=== PATIENT | female | born 1985 | race Caucasian/White ===

== ENCOUNTER 2017-01-06 01:38 | Emergency (ER) | payer MEDICAID ==
[~2017-01-06] VITALS: Ht 154.9 cm; Wt 65.5 kg
[2017-01-06 01:38] VITALS: Ht 154.9 cm; Wt 65.5 kg
[~2017-01-06 01:38] MED LIST: ALPR0.5T8 PO; BUSP5TAB3 PO; HYOS0.3730 PO; PANT40TA27 PO; VENL75CA60 PO
--- OUTSIDE RECORDS SUMMARY | 2017-01-06 01:42 | XMS REPORT | Continuity of Care Document ---
Author Author [facility] Organization [facility] Address Unknown Phone Unavailable Support Name Relationship Address Phone VICTORIANO STANLEY M.D. Caregiver [employer] [address] [place] [id number] [place] FAULKNER Next Of Kin [address] [place] [address] [employer] Insurance Providers Payer Name Policy Number Subscriber Name Relationship Self Pay Insurance Wong Garcia 01 Self / Same As Patient Chief Complaint and Reason for Visit Chief Complaint Rib Pain Reason for Visit Rib injury Problems Medical Problems Problem Onset Date Status Acute right ear pain Unknown Active Eustachean tube dysfunction Unknown Active Ear ache Unknown Active Acute on chronic headache Unknown Active Viral illness Unknown Active Headache Unknown Active Malignant hypertension Unknown Active multidrug abuse Unknown Active Contusion Unknown Active Contusion multiple sites Unknown Active sprained elbow Unknown Active Abscess Unknown Active Insect bite Unknown Active Ovarian cyst Unknown Active Bacterial vaginosis Unknown Active Bacterial vaginosis Unknown Active Ovarian cyst Unknown Active Throat pain Unknown Active Concussion Unknown Active Mid-back pain, acute Unknown Active Hx of fall Unknown Active Bursitis of elbow Unknown Active Bursitis of elbow Unknown Active Olecranon bursitis of right elbow Unknown Active Olecranon bursitis of right elbow Unknown Active Olecranon bursitis of right elbow Unknown Active Olecranon bursitis of right elbow Unknown Active Torticollis, acute Unknown Active Cervicalgia Unknown Active Abscess of forearm, left Unknown Active Abscess of forearm, left Unknown Active Abscess of right forearm Unknown Active Abscess of right forearm Unknown Active Rib injury Unknown Active Rib injury Unknown Active Medications Medication Dose Route Sig Days/Qty Instructions Order Date Discontinued Date Status Hydrocodone-Acetaminophen 1 Tab PO Every 6 hours as needed 10 Qty 07/0107/01/09 Discontinued Acetaminophen/Hydrocodone 5 1 Ea PO 09/25/10 01/17/11 Discontinued Oxycodone/Acetaminophen 1 Tab PO EVERY 6 HOURS PRN 10 Qty For pain 05/14/ 11 05/16/11 Discontinued Oxycodone/Acetaminophen 1 Tab PO EVERY 6 HOURS PRN 10 Qty 05/08/1111/15 Discontinued Cyclobenzaprine Hcl 10 Mg PO Three times a day as needed 15 Qty 03/25/12 Discontinued Cyclobenzaprine Hcl 10 Mg PO Three times a day as needed 15 Qty 07/15/12 Discontinued Pregabalin 75 Mg PO TWICE A DAY 06/05/14 Active Ibuprofen 800 Mg PO Every 4 hours as needed 06/05/14 Active [Flexeril 10mg tab] 1 Tab PO THREE TIMES A DAY PRN SPASM 15 Qty 07/03/14 Discontinued Social History Social History Problem Response Recorded Date/Time Hx Alcohol Use No 12/22/2007 4:43pm Hx Substance Use No 09/30/2007 3:35pm Smoking Status Heavy Tobacco Smoker 07/28/2014 7:23pm Query Response Start Date Stop Date Smoking Status Heavy Tobacco Smoker Hospital Discharge Instructions No hospital discharge instructions. Plan of Care Discharge Date 07/28/14 8:00pm Disposition 01 HOME, SELF-CARE Condition at Discharge Stable Instructions/Education Provided Contusion (ED) Prescriptions See Medications Section Referrals EMETERIO LEONG M.D. Functional Status No functional status results. Allergies, Adverse Reactions, Alerts Allergen Type Severity Reaction Status Last Updated Codeine Adverse Reaction Unknown GI UPSET Active 06/05/14 Morphine Adverse Reaction Unknown Nausea/Vomiting Active 06/05/14 Quinolones Allergy Unknown SWELLING IN HANDS Active 06/05/14 Tramadol Adverse Reaction Unknown SEIZURE Active 06/05/14 Immunizations No immunization records. Vital Signs Acute Vital Signs Vital Response Date/Time Blood Pressure 111/75 mm Hg Blood Pressure Mean 87 mm Hg Temperature (Fahrenheit) 97.9 degrees F (96.0 - 99.9) Temperature (Calculated Celsius) 36.96069 degrees C Temperature Source Oral Pulse Pulse Rate: ED 113 bpm Respiratory Rate 18 breaths per minute (10 - 20) Height (Feet) 5 ft Height (Inches) 1 in. Weight (Pounds) 130 lbs Results Test Source Date Result Interp. Ref. Range Comments Acetaminophen Level September 29, 2013 1:25pm < 0.1 ug/mL Therapeutic Levels in serum/plasma 10-30 ug/mlToxic Levels: 4 hrs post ingestion >150 ug/ml 8 hrs post ingestion >75 ug/ml 12 hrs post ingestion >40 ug/ml Activated Partial Thromboplast Time May 16, 2011 9:25am 27.6 SECONDS N 23.0-32.0 Alanine Aminotransferase (ALT/SGPT) March 15, 2014 12:40pm 12 U/L N 5-40 Albumin March 15, 2014 12:40pm 4.0 gm/dL N 3.2-5.0 Albumin/Globulin Ratio March 15, 2014 12:40pm 1.3 L 1.4-2.4 Alkaline Phosphatase March 15, 2014 12:40pm 53 U/L N 35-125 Amylase Level April 06, 2010 11:30pm 86 U/L N 16-108 ROOM/COMMENTS 03 Anion Gap March 15, 2014 12:40pm 10.8 N 6-13 Anti-Nuclear Antibody Titer December 19, 2008 2:36pm See separate report Anti-Streptolysin O Antibody Screen December 19, 2008 2:36pm See separate report IU/ml NEG Arterial Blood HCO3 May 18, 2010 12:04am 24.0 mEq/L N 21-27 ABG' S DRAWN ON ROOM AIR. Arterial Blood Total CO2 May 18, 2010 12:04am 25.0 mM/L N 21-27 ROOM/COMMENTS 02 Arterial Blood pH May 18, 2010 12:04am 7.47 H 7.35-7.45 ROOM/ COMMENTS 02 Aspartate Amino Transf (AST/SGOT) March 15, 2014 12:40pm 18 U/L N 5-40 BUN/Creatinine Ratio March 15, 2014 12:40pm 13.9 Basophils # (Auto) May 24, 2014 8:53am 0.0 K/uL N 0-0.2 Basophils (%) (Auto) May 24, 2014 8:53am 0.3 % N 0-1 Bedside Blood Urea Nitrogen April 06, 2010 11:17pm 14 mg/dL N 8-25 Bedside Calcium August 15, 2007 3:25am 5.0 mg/dL N 4.5-5.3 Bedside Chloride April 06, 2010 11:17pm 103 mEq/L N 98-116 Bedside Glucose April 06, 2010 11:17pm 121 mg/dL H 65-115 Bedside Hematocrit August 15, 2007 3:25am 33.0 % L 38.0-47.0 Bedside Hemoglobin August 15, 2007 3:25am 11.0 g/dL L 12.0-16.0 Bedside Potassium April 06, 2010 11:17pm 3.1 mEq/L L 3.5-5.1 Bedside Sodium April 06, 2010 11:17pm 139 mEq/L N 133-145 Benzodiazepines Screen February 14, 2011 11:33am Negative NEGATIVE ROOM/ COMMENTS 05 Blood Gas Base Excess May 18, 2010 12:04am 0.8 mEq/L ROOM/ COMMENTS 02 Blood Gas PCO2 May 18, 2010 12:04am 33 mmHg L 34-46 ROOM/ COMMENTS 02 Blood Gas PO2 May 18, 2010 12:04am 96 mmHg N 89-100 ROOM/ COMMENTS 02 Blood Urea Nitrogen March 15, 2014 12:40pm 10 mg/dL N 8-25 C-Reactive Protein May 24, 2014 8:53am 7.8 mg/L H <6.0 CSF Appearance July 23, 2011 12:00am Clear COMMENT: 02 CSF Color July 23, 2011 12:00am Colorless COMMENT: 02 CSF Differential Comment July 23, 2011 12:00am Not Performed CSF Glucose July 23, 2011 12:00am 56 mg/dL N 40-70 COMMENT: 02 CSF Lymphocytes July 23, 2011 12:00am Not Performed 40-80 CSF Monocytes July 23, 2011 12:00am Not Performed 15-45 CSF Neutrophils July 23, 2011 12:00am Not Performed 0-6 CSF RBC July 23, 2011 12:00am 78 /uL H 0-1 COMMENT: 02 CSF Total Protein July 23, 2011 12:00am 25 mg/dL L 30-45 COMMENT: 02 CSF WBC July 23, 2011 12:00am 0 /uL N 0-5 COMMENT: 02 Calcium Level March 15, 2014 12:40pm 9.2 mg/dL N 8.2-10.6 Carbon Dioxide Level March 15, 2014 12:40pm 26 mEq/L N 22-34 Chloride Level March 15, 2014 12:40pm 103 mEq/L N 98-116 Cocaine Screen February 14, 2011 11:33am Negative NEGATIVE ROOM/COMMENTS 05 Creatine Kinase MB April 06, 2010 11:30pm 4.9 ng/mL N 0.0-6.0 ROOM/ COMMENTS 03 Creatine Kinase MB Relative Index April 06, 2010 11:30pm Not Performed 0.0-2.2 Creatinine March 15, 2014 12:40pm 0.72 mg/dL L 0.9-1.6 Drug Screen (T) February 14, 2011 11:33am Positive NEGATIVE ROOM/ COMMENTS 05 Eosinophils # (Auto) May 24, 2014 8:53am 0.2 K/uL N 0-0.8 Eosinophils (%) (Auto) May 24, 2014 8:53am 2.1 % N 0-7.0 Erythrocyte Sedimentation Rate May 24, 2014 8:53am 6 mm/hr N 0-20 Ethyl Alcohol Level September 29, 2013 1:25pm < 5 mg/dl 0-10 A level below 10 mg/dl should be considered negative. Globulin March 15, 2014 12:40pm 3.2 gm/dL H 2.0-3.0 Hematocrit May 24, 2014 8:53am 41.3 % N 38.0-47.0 Hemoglobin May 24, 2014 8:53am 13.6 g/dL N 12.0-16.0 Human Chorionic Gonadotropin, Qual March 15, 2014 1:15pm Negative NEGATIVE Immature Blood Cells October 07, 2012 4:29pm 0.1 K/uL N 0-0.4 COMMENT: 10 Lipase March 15, 2014 12:40pm 29 U/L N 8-57 Lymphocytes # (Auto) May 24, 2014 8:53am 2.8 K/uL N 0.9-5.2 Lymphocytes (%) (Auto) May 24, 2014 8:53am 32.4 % N 16.0-44.0 Mean Corpuscular Hemoglobin May 24, 2014 8:53am 29.2 pg N 26.0- 33.0 Mean Corpuscular Hemoglobin Concent May 24, 2014 8:53am 32.9 g/dL N 31.0-36.0 Mean Corpuscular Volume May 24, 2014 8:53am 88.6 fL N 82.0-100.0 Mean Platelet Volume May 24, 2014 8:53am 9.8 fL N 7.0-11.0 Monocytes # (Auto) May 24, 2014 8:53am 0.8 K/uL N 0.16-1.0 Monocytes (%) (Auto) May 24, 2014 8:53am 9.3 % H 2.0-9.0 Monoscreen September 29, 2013 1:25pm Negative NEGATIVE Neisseria gonorrhoeae DNA (PCR) March 15, 2014 1:15pm Not detected NOT DETECTE Neutrophils # (Auto) May 24, 2014 8:53am 4.8 K/uL N 1.9-8.0 Neutrophils (%) (Auto) May 24, 2014 8:53am 55.7 % N 42.0-75.0 Nucleated Red Blood Cells # May 24, 2014 8:53am 0.00 K/uL N 0.0- 0.012 Nucleated Red Blood Cells % May 24, 2014 8:53am 0.0 /100WBC N 0-0 Platelet Count May 24, 2014 8:53am 183 K/uL N 130-400 Potassium Level March 15, 2014 12:40pm 4.8 mEq/L N 3.5-5.1 Prothromb Time International Ratio May 16, 2011 9:25am 0.98 L 2.0- 3.0 Prothrombin Time May 16, 2011 9:25am 10.3 SECONDS N 9.0-11.0 RDW Standard Deviation May 24, 2014 8:53am 39.1 fL N 36.4-46.3 Random Glucose March 15, 2014 12:40pm 89 mg/dL N 65-115 Red Blood Count May 24, 2014 8:53am 4.66 M/uL N 4.20-5.40 Red Cell Distribution Width May 24, 2014 8:53am 12.1 % N 11.5- 14.5 Rheumatoid Factor Screen December 19, 2008 2:36pm Negative NEGATIVE Salicylates Level September 29, 2013 1:25pm < 0.4 mg/dl NORMAL LEVELS =< 4 mg/dLTHERAPEUTIC LEVEL=< 20 mg/dL TOXIC LEVEL=> 30 mg/dL LETHAL LEVEL=> 60 mg/dL Sodium Level March 15, 2014 12:40pm 135 mEq/L N 133-145 Thyroid Stimulating Hormone (TSH) December 19, 2008 2:36pm 0.33 uIU/ml L 0.34-5.60 Total Bilirubin March 15, 2014 12:40pm 0.7 mg/dL N 0.1-1.3 Total Creatine Kinase April 06, 2010 11:30pm 289 U/L H 10-180 ROOM/ COMMENTS 03 Total Protein March 15, 2014 12:40pm 7.2 gm/dL N 6.0-8.4 Troponin I July 23, 2011 3:55pm 0.01 ng/mL N 0.0-0.03 <0.03 ng/mL=NORMAL0.04 - 0.50 ng/mL=CARDIAC CONDITION >0.50 ng/mL=SUGGESTS AMI Ur Tricyclic Antidepressants Screen September 29, 2013 1:20pm Negative NEGATIVE Uric Acid January 19, 2007 1:17pm 3.2 mg/dL N 2.5-7.0 Urine Amorphous Sediment December 17, 2010 11:45pm Trace ROOM/ COMMENTS 10Lab to draw N If applicable:TELEPHONE/VERBAL order by (other than ) Latoya SOURCE: URINE, CLEAN CATCH Urine Amphetamines Screen September 29, 2013 1:20pm Positive NEGATIVE Urine Appearance March 15, 2014 1:15pm Clear SOURCE: URINE, CLEAN CATCH Urine Bacteria April 07, 2012 2:10pm Trace /hpf H NONE COMMENT: 01SOURCE: URINE, CLEAN CATCH Urine Barbiturates February 14, 2011 11:33am Negative NEGATIVE ROOM/ COMMENTS 05 Urine Barbiturates Screen September 29, 2013 1:20pm Negative NEGATIVE Urine Benzodiazepines Screen September 29, 2013 1:20pm Positive NEGATIVE Urine Bilirubin March 15, 2014 1:15pm Negative NEGATIVE SOURCE: URINE , CLEAN CATCH Urine Cannabinoids February 14, 2011 11:33am Negative NEGATIVE ROOM/ COMMENTS 05 Urine Casts December 17, 2010 11:45pm None /lpf NONE ROOM/COMMENTS 10Lab to draw N If applicable:TELEPHONE/VERBAL order by (other than ) Latoya SOURCE: URINE, CLEAN CATCH Urine Cocaine Screen September 29, 2013 1:20pm Negative NEGATIVE Urine Color March 15, 2014 1:15pm Yellow SOURCE: URINE, CLEAN CATCH Urine Crystals December 17, 2010 11:45pm None /hpf NONE ROOM/COMMENTS 10Lab to draw N If applicable:TELEPHONE/VERBAL order by (other than ) Latoya SOURCE: URINE, CLEAN CATCH Urine Epithelial Cells April 07, 2012 2:10pm Many /lpf COMMENT: 01SOURCE: URINE, CLEAN CATCH Urine Glucose (UA) March 15, 2014 1:15pm Negative NEGATIVE SOURCE: URINE, CLEAN CATCH Urine Human Chorionic Gonadotropin September 29, 2013 1:20pm Negative NEGATIVE Urine Ketones March 15, 2014 1:15pm Negative NEGATIVE SOURCE: URINE, CLEAN CATCH Urine Leukocyte Esterase March 15, 2014 1:15pm Negative NEGATIVE SOURCE: URINE, CLEAN CATCH Urine Methamphetamines Screen September 29, 2013 1:20pm Positive NEGATIVE Urine Mucus December 17, 2010 11:45pm None /lpf NONE ROOM/COMMENTS 10Lab to draw N If applicable:TELEPHONE/VERBAL order by (other than ) Latoya SOURCE: URINE, CLEAN CATCH Urine Nitrate March 15, 2014 1:15pm Negative NEGATIVE SOURCE: URINE, CLEAN CATCH Urine Occult Blood March 15, 2014 1:15pm Negative NEGATIVE SOURCE: URINE, CLEAN CATCH Urine Opiates Screen September 29, 2013 1:20pm Positive NEGATIVE Urine Other December 17, 2010 11:45pm N ROOM/COMMENTS 10Lab to draw N If applicable:TELEPHONE/VERBAL order by (other than ) Latoya SOURCE: URINE, CLEAN CATCH Urine Phencyclidine Screen September 29, 2013 1:20pm Negative NEGATIVE Urine Propoxyphene Screen September 29, 2013 1:20pm Positive NEGATIVE Urine Protein March 15, 2014 1:15pm Negative NEGATIVE SOURCE: URINE, CLEAN CATCH Urine RBC April 07, 2012 2:10pm None /hpf NONE COMMENT: 01SOURCE: URINE, CLEAN CATCH Urine Specific Bude March 15, 2014 1:15pm 1.015 1.005-1.030 SOURCE : URINE, CLEAN CATCH Urine Urobilinogen March 15, 2014 1:15pm 0.2 E.U./dL 0.2-1.0 SOURCE: URINE, CLEAN CATCH Urine WBC April 07, 2012 2:10pm 0-1 /hpf NONE COMMENT: 01SOURCE: URINE, CLEAN CATCH Urine WBC Clumps December 17, 2010 11:45pm None /hpf NONE ROOM/COMMENTS 10Lab to draw N If applicable:TELEPHONE/VERBAL order by (other than ) Latoya SOURCE: URINE, CLEAN CATCH Urine pH March 15, 2014 1:15pm 6.5 4.5-8.0 SOURCE: URINE, CLEAN CATCH White Blood Count May 24, 2014 8:53am 8.6 K/uL N 5.0-10.0 Whole Blood Anion Gap August 15, 2007 3:25am 13 N 10-20 D-Dimer Quantitative (PE/DVT) June 07, 2007 7:15pm 0.40 mg/L N 0.40- 3.00 If the result is greater than 1.5 mg/L then the potentialfor PE / DVT exists. Follow up testing is indicated if suspected clinically. Results will be elevated greater than 3.0 mg/L in DIC. Bedside Troponin I April 06, 2010 11:13pm 0.00 ng/mL N 0.0-0.03 < 0.03 ng/mL=NORMAL0.04 - 0.50 ng/mL=CARDIAC CONDITION >0.50 ng/mL=SUGGESTS AMI Chlamydia trachomatis DNA (PCR) March 15, 2014 1:15pm Not detected NOT DETECTE Urine Methadone Screen September 29, 2013 1:20pm Negative NEGATIVE Bedside Creatinine April 06, 2010 11:17pm 1.1 mg/dL N 0.9-1.6 Glomerular Filtration Rate Calc March 15, 2014 12:40pm > 60.00 mL/min MULTIPLY RESULT BY 1.210 IF THE PATIENT IS -AMERICANUnits are mL/min/ 1.73 m2 > 60 Normal kidney function 30-59 Moderately decreased kidney function 15-29 Severely decreased kidney function <15 End-stage kidney failure Immature Granulocyte # (Auto) May 24, 2014 8:53am 0.02 K/uL N 0- 0.40 Immature Granulocyte % (Auto) May 24, 2014 8:53am 0.2 % N 0-0.5 Ur Tetrahydrocannabinol (THC) Scrn September 29, 2013 1:20pm Negative NEGATIVE Urine Acetaminophen Screen January 04, 2012 1:05pm Pos NEGATIVE COMMENT : 04 Gram Stain Cerebral Spinal Fluid July 23, 2011 12:00am Vaginitis Screen Culture Cervix March 15, 2014 1:15pm Yeast Species Group A Streptococcus Screen (DARÍO) Throat December 20, 2013 12:47pm Urine Culture Urine,Clean Catch December 05, 2007 9:30am Wound Culture Arm-Right July 18, 2014 8:15am Procedures Procedure Status Date Provider(s) THER/PROPH/DIAG INJ SC/IM completed 06/05/14 RAFA GARCIA M.D. THER/PROPH/DIAG INJ SC/IM completed 07/03/14 DUARTE SAINZ M.D. THER/PROPH/DIAG INJ SC/IM completed 07/03/14 DUARTE SAINZ M.D. DRAINAGE OF SKIN ABSCESS completed 07/18/14 DUARTE SAINZ M.D. Incision and drainage of soft tissue (procedure) completed 07/18/14 DUARTE SAINZ M.D. THER/PROPH/DIAG INJ SC/IM completed 07/26/14 DUARTE SAINZ M.D. THER/PROPH/DIAG INJ SC/IM completed 07/26/14 DUARTE SAINZ M.D. THER/PROPH/DIAG INJ SC/IM completed 08/02/13 LILA URIBE M.D. THER/PROPH/DIAG INJ SC/IM completed 08/02/13 LILA URIBE M.D. DRAINAGE OF SKIN ABSCESS completed 11/01/13 YABUT,GUANACO Treviño M.D. Incision and drainage of soft tissue (procedure) completed 11/01/13 YABUT, GUANACO Treviño M.D. THER/PROPH/DIAG INJ SC/IM completed 11/30/13 VICTORIANO STANLEY M.D. THER/PROPH/DIAG INJ SC/IM completed 11/30/13 VICTORIANO STANLEY M.D. THER/PROPH/DIAG INJ SC/IM completed 11/30/13 VICTORIANO STANLEY M.D. THER/PROPH/DIAG INJ SC/IM completed 12/01/13 YABUT,GUANACO Treviño M.D. THER/PROPH/DIAG INJ SC/IM completed 12/01/13 YABUT,GUANACO Treviño M.D. THER/PROPH/DIAG INJ SC/IM completed 12/01/13 YABUT,GUANACO Treviño M.D. THER/PROPH/DIAG INJ IV PUSH completed 03/15/14 DUARTE SAINZ M.D. TX/PRO/DX INJ NEW DRUG ADDON completed 03/15/14 DUARTE SAINZ M.D. TX/PRO/DX INJ NEW DRUG ADDON completed 03/15/14 DUARTE SAINZ M.D. Gynecologic examination (procedure) completed 03/15/14 DUARTE SAINZ M.D. THER/PROPH/DIAG INJ SC/IM completed 03/27/14 VICTORIANO STANLEY M.D. THER/PROPH/DIAG INJ SC/IM completed 03/27/14 VICTORIANO STANLEY M.D. THER/PROPH/DIAG INJ SC/IM completed 03/27/14 VICTORIANO STANLEY M.D. THER/PROPH/DIAG INJ SC/IM completed 04/07/14 VICTORIANO STANLEY M.D. THER/PROPH/DIAG INJ SC/IM completed 04/07/14 VICTORIANO STANLEY M.D. THER/PROPH/DIAG INJ SC/IM completed 05/08/14 VICTORIANO STANLEY M.D. THER/PROPH/DIAG INJ SC/IM completed 05/08/14 VICTORIANO STANLEY M.D. THER/PROPH/DIAG INJ SC/IM completed 05/08/14 VICTORIANO STANLEY M.D. THER/PROPH/DIAG INJ SC/IM completed 05/11/14 SHILA TIDWELL D.O. THER/PROPH/DIAG INJ SC/IM completed 05/16/14 RAFA GARCIA M.D. Encounters Encounter Location Date/Time Departed Emergency Room [facility] 07/28/14 7:19pm Registered Emergency Room [facility] 07/28/14 4:19pm Departed Emergency Room [facility] 07/26/14 3:57pm Departed Emergency Room [facility] 07/18/14 7:47am Departed Emergency Room [facility] 07/03/14 8:25am Departed Emergency Room [facility] 06/05/14 12:06pm Departed Emergency Room [facility] 05/16/14 11:13am Departed Emergency Room [facility] 05/11/14 8:24am Departed Emergency Room [facility] 05/08/14 7:22am Departed Emergency Room [facility] 05/04/14 11:11am Departed Emergency Room [facility] 04/27/14 11:11am Departed Emergency Room [facility] 04/23/14 9:41am Departed Emergency Room [facility] 04/07/14 12:34pm Departed Emergency Room [facility] 03/27/14 10:38am Departed Emergency Room [facility] 03/15/14 12:11pm Departed Emergency Room [facility] 03/02/14 10:49am Departed Emergency Room [facility] 01/16/14 8:33am Departed Emergency Room [facility] 12/20/13 12:20pm Departed Emergency Room [facility] 12/08/13 12:38pm Departed Emergency Room [facility] 12/01/13 5:06pm Departed Emergency Room [facility] 11/30/13 12:40pm Departed Emergency Room [facility] 11/01/13 3:13pm Departed Emergency Room [facility] 10/30/13 3:55pm Departed Emergency Room [facility] 10/08/13 9:00pm Departed Emergency Room [facility] 09/29/13 1:05pm Departed Emergency Room [facility] 09/27/13 4:56pm Departed Emergency Room [facility] 09/12/13 8:17am Departed Emergency Room [facility] 08/24/13 10:10am Departed Emergency Room [facility] 08/04/13 5:24pm Departed Emergency Room [facility] 08/02/13 1:19pm Departed Emergency Room [facility] 08/01/13 12:56pm Recent Diagnosis
--- OUTSIDE RECORDS SUMMARY | 2017-01-06 01:42 | XMS REPORT | Continuity of Care Document ---
Author Author [facility] Organization [facility] Address Unknown Phone Unavailable Support Name Relationship Address Phone KORIN GOYAL M.D. Caregiver [address] [place] [id number] [address] FA[place]KNER Next Of Kin [address] [place] [address] [employer] Insurance Providers Payer Name Policy Number Subscriber Name Relationship [facility] [id number] Aleksandar Garcia 02 Chief Complaint and Reason for Visit Chief Complaint Hand Injury Reason for Visit Contusion of left hand Problems Medical Problems Problem Onset Date Status [...] injury Unknown Active Rib injury Unknown Active Contusion of rib on right side Unknown Active Contusion of rib on right side Unknown Active Otitis media Unknown Active Bilateral sacroiliitis Unknown Active Bilateral sacroiliitis Unknown Active Ear pain Unknown Active Headache Unknown Active Ear pain Unknown Active Low back pain Unknown Active Low back pain Unknown Active RUQ abdominal pain Unknown Active RUQ abdominal pain Unknown Active Left wrist sprain Unknown Active Left wrist sprain Unknown Active Encounter for removal of sutures Unknown Active Laceration of right lower leg Unknown Active Low back strain Unknown Active Axillary abscess Unknown Active Axillary abscess Unknown Active Concussion without loss of consciousness Unknown Active Cervical strain, acute Unknown Active Contusion of neck Unknown Active Headache Unknown Active Post concussion syndrome Unknown Active Headache Unknown Active Contusion of left hand Unknown Active Contusion of left hand Unknown Active Medications Medication Dose Route Sig Days/Qty Instructions Order Date Discontinued Date Status Hydrocodone-Acetaminophen 1 Tab PO Every 6 hours as needed 10 Qty 07/0107/01/09 Discontinued Acetaminophen/Hydrocodone 5 1 Ea PO 09/25/10 01/17/11 Discontinued Oxycodone/Acetaminophen 1 Tab PO EVERY 6 HOURS PRN 10 Qty For pain 01/20/11 Discontinued Oxycodone/Acetaminophen 1 Tab PO EVERY 6 HOURS PRN 10 Qty 05/08/1111/15 Discontinued Cyclobenzaprine Hcl 10 Mg PO Three times a day as needed 15 Qty 03/25/12 Discontinued Cyclobenzaprine Hcl 10 Mg PO Three times a day as needed 15 Qty 07/15/12 Discontinued [Flexeril 10mg tab] 1 Tab PO THREE TIMES A DAY PRN SPASM 15 Qty 07/03/14 Discontinued Rbfcvdhrzd-Rjwnzmvdgnlcj-Lyjny 1 Tab PO Every 6 hours as needed For MIGRAINE 20 Qty 01/13/15 Active Pregabalin 25 Mg PO TWICE A DAY 02/13/15 Active Acetaminophen/Hydrocodone Bitart 1-2 Tab PO Q4-6H PRN PAIN 14 Qty 02/13 Active Social History Social History Problem Response Recorded Date/Time Hx Alcohol Use No 12/22/2007 4:43pm Hx Substance Use No 09/30/2007 3:35pm Smoking Status Heavy Tobacco Smoker 02/13/2015 7:44am Query Response Start Date Stop Date Smoking Status Heavy Tobacco Smoker Hospital Discharge Instructions No hospital discharge instructions. Plan of Care Discharge Date 02/13/15 8:46am Disposition 01 HOME, SELF-CARE Condition at Discharge Stable Instructions/Education Provided Contusion (ED) Contusions in Adults (ED) Prescriptions See Medications Section Functional Status No functional status results. Allergies, Adverse Reactions, Alerts Allergen Type Severity Reaction Status Last Updated Codeine Adverse Reaction Unknown GI UPSET Active 01/13/15 Morphine Adverse Reaction Unknown Nausea/Vomiting Active 01/13/15 Tramadol Adverse Reaction Unknown SEIZURE Active 01/13/15 Quinolones Allergy Unknown SWELLING IN HANDS Active 01/13/15 Immunizations No immunization records. Vital Signs Acute Vital Signs Vital Response Date/Time Blood Pressure 169/108 mm Hg Blood Pressure Mean 128 mm Hg Temperature (Fahrenheit) 98.4 degrees F (96.0 - 99.9) Temperature (Calculated Celsius) 36.76716 degrees C Temperature Source Oral Pulse Pulse Rate: ED 94 bpm Respiratory Rate 18 breaths per minute (10 - 20) Height (Feet) 5 ft Height (Inches) 1 in. Weight (Pounds) 130 lbs Height 5 ft 1 in Weight 130 lb Body Mass Index 24.6 kg/m^2 Results Test Source Date Result Interp. Ref. Range Comments Acetaminophen Level September 29, 2013 1:25pm < 0.1 ug/mL Therapeutic Levels in serum/plasma 10-30 ug/mlToxic Levels: 4 hrs post ingestion >150 ug/ml 8 hrs post ingestion >75 ug/ml 12 hrs post ingestion >40 ug/ml Activated Partial Thromboplast Time May 16, 2011 9:25am 27.6 SECONDS N 23.0-32.0 Alanine Aminotransferase (ALT/SGPT) September 28, 2014 3:50pm 13 U/L N 5- 40 Albumin September 28, 2014 3:50pm 3.9 gm/dL N 3.2-5.0 Albumin/Globulin Ratio September 28, 2014 3:50pm 1.2 L 1.4-2.4 Alkaline Phosphatase September 28, 2014 3:50pm 57 U/L N 35-125 Amylase Level April 06, 2010 11:30pm 86 U/L N 16-108 ROOM/COMMENTS 03 Anion Gap September 28, 2014 3:50pm 10.1 N 6-13 Anti-Nuclear Antibody Titer December 19, [...] ROOM/ COMMENTS 02 Aspartate Amino Transf (AST/SGOT) September 28, 2014 3:50pm 17 U/L N 5-40 BUN/Creatinine Ratio September 28, 2014 3:50pm 17.0 Basophils # (Auto) September 28, 2014 12:00am 0.0 K/uL N 0-0.2 Basophils (%) (Auto) September 28, 2014 12:00am 0.4 % N 0-1 Bedside Blood Urea Nitrogen [...] 89-100 ROOM/ COMMENTS 02 Blood Urea Nitrogen September 28, 2014 3:50pm 15 mg/dL N 8-25 C-Reactive Protein May 24, [...] /uL N 0-5 COMMENT: 02 Calcium Level September 28, 2014 3:50pm 9.2 mg/dL N 8.2-10.6 Carbon Dioxide Level September 28, 2014 3:50pm 24 mEq/L N 22-34 Chloride Level September 28, 2014 3:50pm 106 mEq/L N 98-116 Cocaine Screen February 14, 2011 11:33am Negative NEGATIVE ROOM/COMMENTS 05 Creatine Kinase MB April 06, 2010 11:30pm 4.9 ng/mL N 0.0-6.0 ROOM/ COMMENTS 03 Creatine Kinase MB Relative Index April 06, 2010 11:30pm Not Performed 0.0-2.2 Creatinine September 28, 2014 3:50pm 0.88 mg/dL L 0.9-1.6 Drug Screen (T) February 14, 2011 11:33am Positive NEGATIVE ROOM/ COMMENTS 05 Eosinophils # (Auto) September 28, 2014 12:00am 0.2 K/uL N 0-0.8 Eosinophils (%) (Auto) September 28, 2014 12:00am 2.7 % N 0-7.0 Erythrocyte Sedimentation Rate May 24, 2014 8:53am 6 mm/hr N 0-20 Ethyl Alcohol Level September 29, 2013 1:25pm < 5 mg/dl 0-10 A level below 10 mg/dl should be considered negative. Globulin September 28, 2014 3:50pm 3.3 gm/dL H 2.0-3.0 Hematocrit September 28, 2014 12:00am 40.0 % N 38.0-47.0 Hemoglobin September 28, 2014 12:00am 13.6 g/dL N 12.0-16.0 Human Chorionic Gonadotropin, Qual March 15, 2014 1:15pm Negative NEGATIVE Immature Blood Cells October 07, 2012 4:29pm 0.1 K/uL N 0-0.4 COMMENT: 10 Lipase September 28, 2014 3:50pm 31 U/L N 8-57 Lymphocytes # (Auto) September 28, 2014 12:00am 2.4 K/uL N 0.9-5.2 Lymphocytes (%) (Auto) September 28, 2014 12:00am 34.7 % N 16.0-44.0 Mean Corpuscular Hemoglobin September 28, 2014 12:00am 29.5 pg N 26.0- 33.0 Mean Corpuscular Hemoglobin Concent September 28, 2014 12:00am 34.0 g/dL N 31.0-36.0 Mean Corpuscular Volume September 28, 2014 12:00am 86.8 fL N 82.0-100.0 Mean Platelet Volume September 28, 2014 12:00am 10.1 fL N 7.0-11.0 Monocytes # (Auto) September 28, 2014 12:00am 0.9 K/uL N 0.16-1.0 Monocytes (%) (Auto) September 28, 2014 12:00am 12.1 % H 2.0-9.0 Monoscreen September 29, 2013 1:25pm Negative NEGATIVE Neisseria gonorrhoeae DNA (PCR) March 15, 2014 1:15pm Not detected NOT DETECTE Neutrophils # (Auto) September 28, 2014 12:00am 3.5 K/uL N 1.9-8.0 Neutrophils (%) (Auto) September 28, 2014 12:00am 50.0 % N 42.0-75.0 Nucleated Red Blood Cells # September 28, 2014 12:00am 0.02 K/uL H 0.0- 0.012 Nucleated Red Blood Cells % September 28, 2014 12:00am 0.3 /100WBC H 0-0 Platelet Count September 28, 2014 12:00am 178 K/uL N 130-400 Potassium Level September 28, 2014 3:50pm 4.1 mEq/L N 3.5-5.1 Prothromb Time International Ratio May 16, 2011 9:25am 0.98 L 2.0- 3.0 Prothrombin Time May 16, 2011 9:25am 10.3 SECONDS N 9.0-11.0 RDW Standard Deviation September 28, 2014 12:00am 38.9 fL N 36.4-46.3 Random Glucose September 28, 2014 3:50pm 84 mg/dL N 65-115 Red Blood Count September 28, 2014 12:00am 4.61 M/uL N 4.20-5.40 Red Cell Distribution Width September 28, 2014 12:00am 12.2 % N 11.5-14.5 Rheumatoid Factor Screen December 19, 2008 2:36pm Negative NEGATIVE Salicylates Level September 29, 2013 1:25pm < 0.4 mg/dl NORMAL LEVELS =< 4 mg/dLTHERAPEUTIC LEVEL=< 20 mg/dL TOXIC LEVEL=> 30 mg/dL LETHAL LEVEL=> 60 mg/dL Sodium Level September 28, 2014 3:50pm 136 mEq/L N 133-145 Thyroid Stimulating Hormone (TSH) December 19, 2008 2:36pm 0.33 uIU/ml L 0.34-5.60 Total Bilirubin September 28, 2014 3:50pm 0.4 mg/dL N 0.1-1.3 Total Creatine Kinase April 06, 2010 11:30pm 289 U/L H 10-180 ROOM/ COMMENTS 03 Total Protein September 28, 2014 3:50pm 7.2 gm/dL N 6.0-8.4 Troponin I July [...] 29, 2013 1:20pm Positive NEGATIVE Urine Appearance September 28, 2014 12:00am Sl cloudy SOURCE: URINE, CLEAN CATCH Urine Bacteria September 28, 2014 12:00am 4+ /hpf H NONE THIS SPECIMEN MEETS MEDICAL STAFF CRITERIAFOR A URINE CULTURE. A CULTURE HAS BEEN SET. Urine Barbiturates February 14, 2011 11:33am Negative NEGATIVE ROOM/ COMMENTS 05 Urine Barbiturates Screen September 29, 2013 1:20pm Negative NEGATIVE Urine Benzodiazepines Screen September 29, 2013 1:20pm Positive NEGATIVE Urine Bilirubin September 28, 2014 12:00am Negative NEGATIVE SOURCE: URINE, CLEAN CATCH Urine Cannabinoids February 14, 2011 11:33am Negative NEGATIVE ROOM/ COMMENTS 05 Urine Casts December 17, 2010 11:45pm None /lpf NONE ROOM/COMMENTS 10Lab to draw N If applicable:TELEPHONE/VERBAL order by (other than KESHIA Klein SOURCE: URINE, CLEAN CATCH Urine Cocaine Screen September 29, 2013 1:20pm Negative NEGATIVE Urine Color September 28, 2014 12:00am Yellow SOURCE: URINE, CLEAN CATCH Urine Crystals December 17, 2010 11:45pm None /hpf NONE ROOM/COMMENTS 10Lab to draw N If applicable:TELEPHONE/VERBAL order by (other than ) Latoya SOURCE: URINE, CLEAN CATCH Urine Epithelial Cells September 28, 2014 12:00am Many /lpf SOURCE: URINE, CLEAN CATCH Urine Glucose (UA) September 28, 2014 12:00am Negative NEGATIVE SOURCE : URINE, CLEAN CATCH Urine Human Chorionic Gonadotropin September 26, 2014 9:30am Negative NEGATIVE Urine Ketones September 28, 2014 12:00am Negative NEGATIVE SOURCE: URINE, CLEAN CATCH Urine Leukocyte Esterase September 28, 2014 12:00am Negative NEGATIVE SOURCE: URINE, CLEAN CATCH Urine Methamphetamines Screen September 29, 2013 1:20pm Positive NEGATIVE Urine Mucus September 28, 2014 12:00am 4+ /lpf NONE SOURCE: URINE, CLEAN CATCH Urine Nitrate September 28, 2014 12:00am Negative NEGATIVE SOURCE: URINE, CLEAN CATCH Urine Occult Blood September 28, 2014 12:00am Negative NEGATIVE SOURCE : URINE, CLEAN CATCH Urine Opiates Screen September 29, 2013 1:20pm Positive NEGATIVE Urine Other December 17, 2010 11:45pm N ROOM/COMMENTS 10Lab to draw N If applicable:TELEPHONE/VERBAL order by (other than ) Latoya SOURCE: URINE, CLEAN CATCH Urine Phencyclidine Screen September 29, 2013 1:20pm Negative NEGATIVE Urine Propoxyphene Screen September 29, 2013 1:20pm Positive NEGATIVE Urine Protein September 28, 2014 12:00am Negative NEGATIVE SOURCE: URINE, CLEAN CATCH Urine RBC September 28, 2014 12:00am None /hpf NONE SOURCE: URINE, CLEAN CATCH Urine Specific [place] September 28, 2014 12:00am >=1.030 1.005-1.030 SOURCE: URINE, CLEAN CATCH Urine Urobilinogen September 28, 2014 12:00am 0.2 E.U./dL 0.2-1.0 SOURCE: URINE, CLEAN CATCH Urine WBC September 28, 2014 12:00am 0-1 /hpf NONE SOURCE: URINE, CLEAN CATCH Urine WBC Clumps December 17, 2010 11:45pm None /hpf NONE ROOM/COMMENTS 10Lab to draw N If applicable:TELEPHONE/VERBAL order by (other than ) Latoya SOURCE: URINE, CLEAN CATCH Urine pH September 28, 2014 12:00am 6.0 4.5-8.0 SOURCE: URINE, CLEAN CATCH White Blood Count September 28, 2014 12:00am 7.0 K/uL N 5.0-10.0 Whole Blood Anion Gap [...] mg/dL N 0.9-1.6 Glomerular Filtration Rate Calc September 28, 2014 3:50pm > 60.00 mL/min MULTIPLY RESULT BY 1.210 IF THE PATIENT IS -AMERICANUnits are mL/min /1.73 m2 > 60 Normal kidney function 30-59 Moderately decreased kidney function 15-29 Severely decreased kidney function <15 End-stage kidney failure Immature Granulocyte # (Auto) September 28, 2014 12:00am 0.01 K/uL N 0- 0.40 Immature Granulocyte % (Auto) September 28, 2014 12:00am 0.1 % N 0-0.5 Ur Tetrahydrocannabinol (THC) Scrn September 29, 2013 1:20pm Negative NEGATIVE Urine Acetaminophen Screen January 04, 2012 1:05pm Pos NEGATIVE COMMENT : 04 Gram Stain Cerebral Spinal Fluid July 23, 2011 12:00am Vaginitis Screen Culture Cervix March 15, 2014 1:15pm Yeast Species Group A Streptococcus Screen (DARÍO) Throat December 20, 2013 12:47pm Urine Culture Urine,Clean Catch September 28, 2014 12:00am Wound Culture Arm-Right July 18, 2014 8:15am Procedures Procedure Status Date Provider(s) THER/PROPH/DIAG INJ SC/IM completed 06/05/14 RAFA GARCIA M.D. THER/PROPH/DIAG INJ SC/IM completed 07/03/14 SAINZ,DUARTE Khan THER/PROPH/DIAG INJ SC/IM completed 07/03/14 ALISTAIR,DUARTE Khan DRAINAGE OF SKIN ABSCESS completed 07/18/14 SAINZ,DUARTE Khan Incision and drainage of soft tissue (procedure) completed 07/18/14 SAINZ, DUARTE Khan THER/PROPH/DIAG INJ SC/IM completed 07/26/14 SAINZ,DUARTE Khan THER/PROPH/DIAG INJ SC/IM completed 07/26/14 SAINZ,DUARTE Khan THER/PROPH/DIAG INJ SC/IM completed 08/09/14 OMAR LIZ M.D. THER/PROPH/DIAG INJ SC/IM completed 09/03/14 SAINZ,DUARTE Khan THER/PROPH/DIAG INJ SC/IM completed 09/09/14 SAINZ,DUARTE Khan THER/PROPH/DIAG INJ SC/IM completed 09/09/14 SAINZ,DUARTE Khan THER/PROPH/DIAG INJ SC/IM completed 09/26/14 SAINZ,DUARTE Khan THER/PROPH/DIAG INJ SC/IM completed 09/26/14 SAINZ,DUARTE Khan THER/PROPH/DIAG INJ IV PUSH completed 09/28/14 RAFA GARCIA M.D. TX/PRO/DX INJ NEW DRUG ADDON completed 09/28/14 RAFA GARCIA M.D. TX/PRO/DX INJ NEW DRUG ADDON completed 09/28/14 RAFA GARCIA M.D. THER/PROPH/DIAG INJ SC/IM completed 11/03/14 ALISTAIR,DUARTE Khan THER/PROPH/DIAG INJ SC/IM completed 11/03/14 ALISTAIR,DUARTE Khan DRAINAGE OF SKIN ABSCESS completed 12/01/14 ALISTAIR,DUARTE Khan Incision and drainage of soft tissue (procedure) completed 12/01/14 ALISTAIR, DUARTE Khan THER/PROPH/DIAG INJ SC/IM completed 01/13/15 KORIN GOYAL M.D. THER/PROPH/DIAG INJ SC/IM completed 01/13/15 KORIN GOYAL M.D. THER/PROPH/DIAG INJ IV PUSH completed 03/15/14 [...] Encounters Encounter Location Date/Time Departed Emergency Room [facility] 02/13/15 7:40am Departed Emergency Room [facility] 01/15/15 10:42am Departed Emergency Room [facility] 01/13/15 1:49pm Departed Emergency Room [facility] 01/12/15 1:08am Departed Emergency Room [facility] 01/03/15 8:41am Departed Emergency Room [facility] 12/01/14 10:41pm Departed Emergency Room [facility] 11/30/14 10:32am Departed [facility] Room [facility] 11/27/14 12:57pm Departed Emergency Room [facility] 11/26/14 4:07pm Departed Emergency Room [facility] 11/03/14 5:04pm Departed Emergency Room [facility] 10/16/14 12:09pm Departed Emergency Room [facility] 09/28/14 3:12pm Departed Emergency Room [facility] 09/26/14 8:40am Departed Emergency Room [facility] 09/22/14 12:44pm Departed Emergency Room [facility] 09/09/14 2:10am Departed Emergency Room [facility] 09/07/14 7:13pm Departed Emergency Room [facility] 09/07/14 2:25pm Departed Emergency Room [facility] 09/03/14 2:13pm Departed Emergency Room [facility] 08/19/14 2:57am Departed Emergency Room [facility] 08/09/14 1:57pm Departed Emergency Room [facility] 07/30/14 8:44am Departed Emergency Room [facility] 07/28/14 7:19pm Departed Emergency Room [facility] 07/28/14 4:19pm Departed Emergency Room [facility] Thanh [facility] 07/26/14 3:57pm Departed Emergency Room [facility] 07/18/14 7:47am Departed Emergency Room [facility] E[facility] 07/03/14 8:25am Departed Emergency Room [facility] 06/05/14 12:06pm Departed Emergency Room [facility] Thanh [facility] 05/16/14 11:13am Departed Emergency Room [facility] 05/11/14 8:24am Departed Emergency Room [facility] 05/08/14 7:22am Departed Emergency Room [facility] 05/04/14 11:11am Departed Emergency Room [facility] 04/27/14 11:11am Departed Emergency Room [facility] 04/23/14 9:41am Departed Emergency Room [facility] 04/07/14 12:34pm Departed Emergency Room [facility] 03/27/14 10:38am Departed Emergency Room [facility] 03/15/14 12:11pm Departed Emergency Room [facility] 03/02/14 10:49am Recent Diagnosis
--- OUTSIDE RECORDS SUMMARY | 2017-01-06 01:43 | XMS REPORT | Continuity of Care Document ---
Author Author [facility] Organization [facility] Address Unknown Phone Unavailable Support Name Relationship Address Phone VICTORIANO STANLEY M.D. Caregiver [employer] [address] [place] [address] PINO FAULKNER Next Of Kin [address] [place] [address] CELL Insurance Providers Payer Name Policy Number Subscriber Name Relationship [facility]-Other [id number] Aleksandar Garcia 02 Chief Complaint and Reason for Visit Chief Complaint Abscess Reason for Visit [id number] Problems Medical Problems Problem Onset Date Status [...] Unknown Active Low back strain Unknown Active Medications Medication Dose Route Sig [...] DAY PRN SPASM 15 Qty 07/03/14 Discontinued Pregabalin 50 Mg PO TWICE A DAY 08/19/14 Active Qvqgewviqs-Euuqkqspmghhp-Pdhgr 1 Tab PO THREE TIMES A DAY For MIGRAINE 10 Qty 11/03/14 Active Diclofenac Sodium 75 Mg PO Every 12 hours as needed PRN PAIN 20 Qty Active Methocarbamol 1,000 Mg PO Every 8 hours as needed For MUSCLE SPASM 15 Qty 11/27/14 Active Sulfamethoxazole-Trimethoprim 1 Tab PO TWICE A DAY For . 14 Qty Active Social History Social History Problem Response Recorded Date/Time Hx Alcohol Use No 12/22/2007 4:43pm Hx Substance Use No 09/30/2007 3:35pm Smoking Status Heavy Tobacco Smoker 11/30/2014 10:35am Query Response Start Date Stop Date Smoking Status Heavy Tobacco Smoker Hospital Discharge Instructions No hospital discharge instructions. Plan of Care Discharge Date 11/30/14 11:26am Disposition 01 HOME, SELF-CARE Condition at Discharge Stable Instructions/Education Provided Abscess (ED) Prescriptions See Medications Section Referrals LADY ROBERTS M.D. Functional Status No functional status results. Allergies, Adverse Reactions, Alerts Allergen Type Severity Reaction Status Last Updated Codeine Adverse Reaction Unknown GI UPSET Active 11/30/14 Morphine Adverse Reaction Unknown Nausea/Vomiting Active 11/30/14 Tramadol Adverse Reaction Unknown SEIZURE Active 11/30/14 Quinolones Allergy Unknown SWELLING IN HANDS Active 11/30/14 Immunizations No immunization records. Vital Signs Acute Vital Signs Vital Response Date/Time Blood Pressure 131/81 mm Hg Blood Pressure Mean 98 mm Hg Temperature (Fahrenheit) 98.1 degrees F (96.0 - 99.9) Temperature (Calculated Celsius) 36.87066 degrees C Temperature Source Oral Pulse Pulse Rate: ED 83 bpm Respiratory Rate 16 breaths per minute (10 - 20) Height [...] 2010 11:17pm 103 mEq/L N 98-116 Bedside Creatinine April 06, 2010 11:17pm 1.1 mg/dL N 0.9-1.6 Bedside Glucose April 06, 2010 11:17pm 121 mg/dL H 65-115 Bedside Hematocrit August 15, 2007 3:25am 33.0 % L 38.0-47.0 Bedside Hemoglobin August 15, 2007 3:25am 11.0 g/dL L 12.0-16.0 Bedside Potassium April 06, 2010 11:17pm 3.1 mEq/L L 3.5-5.1 Bedside Sodium April 06, 2010 11:17pm 139 mEq/L N 133-145 Bedside Troponin I April 06, 2010 11:13pm 0.00 ng/mL N 0.0-0.03 < 0.03 ng/mL=NORMAL0.04 - 0.50 ng/mL=CARDIAC CONDITION >0.50 ng/mL=SUGGESTS AMI Benzodiazepines Screen February 14, 2011 11:33am Negative [...] 28, 2014 3:50pm 24 mEq/L N 22-34 Chlamydia trachomatis DNA (PCR) March 15, 2014 1:15pm Not detected NOT DETECTE Chloride Level September 28, 2014 3:50pm 106 mEq/L N 98-116 Cocaine Screen February 14, 2011 11:33am Negative NEGATIVE ROOM/COMMENTS 05 Creatine Kinase MB April 06, 2010 11:30pm 4.9 ng/mL N 0.0-6.0 ROOM/ COMMENTS 03 Creatine Kinase MB Relative Index April 06, 2010 11:30pm Not Performed 0.0-2.2 Creatinine September 28, 2014 3:50pm 0.88 mg/dL L 0.9-1.6 D-Dimer Quantitative (PE/DVT) June 07, 2007 7:15pm 0.40 mg/L N 0.40- 3.00 If the result is greater than 1.5 mg/L then the potentialfor PE / DVT exists. Follow up testing is indicated if suspected clinically. Results will be elevated greater than 3.0 mg/L in DIC. Drug Screen (T) February 14, 2011 11:33am [...] 28, 2014 3:50pm 3.3 gm/dL H 2.0-3.0 Glomerular Filtration Rate Calc September 28, 2014 3:50pm > 60.00 mL/min MULTIPLY RESULT BY 1.210 IF THE PATIENT IS -AMERICANUnits are mL/min /1.73 m2 > 60 Normal kidney function 30-59 Moderately decreased kidney function 15-29 Severely decreased kidney function <15 End-stage kidney failure Hematocrit September 28, 2014 12:00am 40.0 % N 38.0-47.0 Hemoglobin September 28, 2014 12:00am 13.6 g/dL N 12.0-16.0 Human Chorionic Gonadotropin, Qual March 15, 2014 1:15pm Negative NEGATIVE Immature Blood Cells October 07, 2012 4:29pm 0.1 K/uL N 0-0.4 COMMENT: 10 Immature Granulocyte # (Auto) September 28, 2014 12:00am 0.01 K/uL N 0- 0.40 Immature Granulocyte % (Auto) September 28, 2014 12:00am 0.1 % N 0-0.5 Lipase September 28, 2014 3:50pm 31 U/L [...] 0.50 ng/mL=CARDIAC CONDITION >0.50 ng/mL=SUGGESTS AMI Ur Tetrahydrocannabinol (THC) Scrn September 29, 2013 1:20pm Negative NEGATIVE Ur Tricyclic Antidepressants Screen September 29, 2013 1:20pm Negative NEGATIVE Uric Acid January 19, 2007 1:17pm 3.2 mg/dL N 2.5-7.0 Urine Acetaminophen Screen January 04, 2012 1:05pm Pos NEGATIVE COMMENT : 04 Urine Amorphous Sediment December 17, 2010 11:45pm Trace ROOM/ COMMENTS 10Lab to draw N If applicable:TELEPHONE/VERBAL order by (other than KESHIA Klein SOURCE: URINE, CLEAN CATCH Urine Amphetamines Screen [...] KESHIA Klein SOURCE: URINE, CLEAN CATCH Urine Epithelial Cells [...] Negative NEGATIVE SOURCE: URINE, CLEAN CATCH Urine Methadone Screen September 29, 2013 1:20pm Negative NEGATIVE Urine Methamphetamines Screen September 29, 2013 1:20pm [...] NONE SOURCE: URINE, CLEAN CATCH Urine Specific [place] September 28, 2014 12:00am >=1.030 1.005-1.030 SOURCE: [...] August 15, 2007 3:25am 13 N 10-20 Gram Stain Cerebral Spinal Fluid July 23, 2011 12:00am Vaginitis Screen Culture Cervix March 15, 2014 1:15pm Yeast Species Group A Streptococcus Screen (DARÍO) Throat December 20, 2013 12:47pm Urine Culture Urine,Clean Catch September 28, 2014 12:00am Wound Culture Arm-Right July 18, 2014 8:15am Procedures Procedure Status Date Provider(s) THER/PROPH/DIAG INJ SC/IM completed 06/05/14 RAFA GARCIA M.D. THER/PROPH/DIAG INJ SC/IM completed 07/03/14 SAINZ,DUARTE M.D. THER/PROPH/DIAG INJ SC/IM completed 07/03/14 ALISTAIR,DUARTE Khan DRAINAGE OF SKIN ABSCESS completed 07/18/14 ALISTAIR,DUARTE Khan Incision and drainage of soft tissue (procedure) completed 07/18/14 ALISTAIR, DUARTE Khan THER/PROPH/DIAG INJ SC/IM completed 07/26/14 SAINZ,DUARTE Khan THER/PROPH/DIAG INJ SC/IM completed 07/26/14 SAINZ,DUARTE hKan THER/PROPH/DIAG INJ SC/IM completed 08/09/14 OMAR LIZ M.D. THER/PROPH/DIAG INJ SC/IM completed 09/03/14 ALISTAIR,DUARTE Khan THER/PROPH/DIAG INJ SC/IM completed 09/09/14 SAINZ,DUARTE [...] 11/03/14 ALISTAIR,DUARTE Khan THER/PROPH/DIAG INJ SC/IM completed 11/30/13 VICTORIANO STANLEY M.D. THER/PROPH/DIAG INJ SC/IM completed 11/30/13 VICTORIANO STANLEY M.D. THER/PROPH/DIAG INJ SC/IM completed 11/30/13 VICTORIANO STANLEY M.D. THER/PROPH/DIAG INJ SC/IM completed 12/01/13 GUANACO SMALL M.D. THER/PROPH/DIAG INJ SC/IM completed 12/01/13 GUANACO SMALL M.D. THER/PROPH/DIAG INJ SC/IM completed 12/01/13 GUANACO SMALL M.D. THER/PROPH/DIAG INJ IV PUSH completed 03/15/14 [...] Encounters Encounter Location Date/Time Departed Emergency Room [facility] 11/30/14 10:32am Departed Emergency Room [facility] 11/27/14 12:57pm Departed Emergency Room [facility] 11/26/14 4:07pm Departed Emergency Room [facility] 11/03/14 5:04pm Departed Emergency Room [facility] 10/16/14 12:09pm Departed Emergency Room [facility] 09/28/14 3:12pm Departed Emergency Room [facility] 09/26/14 8:40am Departed Emergency Room [facility] 09/22/14 12:44pm Departed Emergency Room [facility] 09/09/14 2:10am Departed Emergency Room [facility] 09/07/14 7:13pm Departed Emergency Room Herm[facility] 09/07/14 2:25pm Departed Emergency Room Herm[facility] 09/03/14 2:13pm Departed Emergency Room Herminia [facility] 08/19/14 2:57am Departed Emergency Room Herminia [facility] 08/09/14 1:57pm Departed Emergency Room Herm[facility] 07/30/14 8:44am Departed Emergency Room Herm[facility] 07/28/14 7:19pm Departed Emergency Room Herm[facility] 07/28/14 4:19pm Departed Emergency Room [facility] 07/26/14 3:57pm Departed Emergency Room [facility] 07/18/14 7:47am Departed Emergency Room [facility] 07/03/14 8:25am Departed Emergency Room [facility] 06/05/14 12:06pm Departed Emergency Room Herm[facility] 05/16/14 11:13am Departed Emergency Room Herminia Thanh [facility] 05/11/14 8:24am Departed Emergency Room Herminia [facility]Josh [facility] 05/08/14 7:22am Departed Emergency Room Herminia B. [facility] 05/04/14 11:11am Departed Emergency Room [facility] B. [facility] 04/27/14 11:11am Departed Emergency Room Herminia BJosh E[facility] 04/23/14 9:41am Departed Emergency Room [facility] B. [facility] 04/07/14 12:34pm Departed Emergency Room Herm[facility] 03/27/14 10:38am Departed Emergency Room [facility] B. [facility] 03/15/14 12:11pm Departed Emergency Room Biddle Thanh [facility] 03/02/14 10:49am Departed Emergency Room [facility] Than[facility] 01/16/14 8:33am Departed Emergency Room [facility] 12/20/13 12:20pm Departed Emergency Room [facility] 12/08/13 12:38pm Departed Emergency Room [facility] 12/01/13 5:06pm [facility] 12:40[facility] Recent Diagnosis
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
--- OUTSIDE RECORDS SUMMARY | 2017-01-06 01:43 | XMS REPORT | Continuity of Care Document ---
Author Author [facility] Organization [facility] Address Unknown Phone Unavailable Support Name Relationship Address Phone KORIN GOYAL M.D. Caregiver [facility] [place] [id number] PIN[place] FAULKNER Next Of Kin [address] [place] [address] CELL Insurance Providers Payer Name Policy Number Subscriber Name Relationship [employer] [id number] Wong Garcia 01 Self / Same As Patient [facility] [id number] Aleksandar Garcia 02 Chief Complaint and Reason for Visit Chief Complaint Headache Reason for Visit Headache Problems Medical Problems Problem Onset Date Status [...] DAY PRN SPASM 15 Qty 07/03/14 Discontinued Tuotzmrscn-Lfvjzxwhyllkr-Eteju 1 Tab PO THREE TIMES A DAY For MIGRAINE 10 Qty 11/03/14 Active Ceecuadlhh-Qbiffwyxqxctx-Fwssn 1 Tab PO Every 6 hours as needed For MIGRAINE 20 Qty 01/13/15 Active Social History Social History Problem Response Recorded Date/Time Hx Alcohol Use No 12/22/2007 4:43pm Hx Substance Use No 09/30/2007 3:35pm Smoking Status Heavy Tobacco Smoker 01/13/2015 1:53pm Query Response Start Date Stop Date Smoking Status Heavy Tobacco Smoker Hospital Discharge Instructions No hospital discharge instructions. Plan of Care Discharge Date 01/13/15 2:59pm Disposition 01 HOME, SELF-CARE Condition at Discharge Stable Instructions/Education Provided Acute Headache (ED) Prescriptions See Medications Section Functional Status [...] Vital Signs Vital Response Date/Time Blood Pressure 128/83 mm Hg Blood Pressure Mean 98 mm Hg Temperature (Fahrenheit) 97.8 degrees F (96.0 - 99.9) Temperature (Calculated Celsius) 36.97183 degrees C Temperature Source Oral Pulse Pulse Rate: ED 93 bpm Respiratory Rate 18 breaths per minute (10 - 20) Height (Feet) 5 ft Height (Inches) 1.5 in. Weight (Pounds) 130 lbs Results Test [...] NONE SOURCE: URINE, CLEAN CATCH Urine Specific [place] September 28, 2014 12:00am >=1.030 1.005-1.030 SOURCE: [...] M.D. DRAINAGE OF SKIN ABSCESS completed 07/18/14 ALISTAIR,DUARTE Khan Incision and drainage of soft tissue (procedure) completed 07/18/14 ALISTAIR, DUARTE Khan THER/PROPH/DIAG INJ SC/IM completed 07/26/14 SAINZ,DUARTE Khan THER/PROPH/DIAG INJ SC/IM completed 07/26/14 SAINZ,DUARTE Kahn THER/PROPH/DIAG INJ SC/IM completed 08/09/14 OMAR LIZ [...] ALISTAIR,DUARTE Khan THER/PROPH/DIAG INJ SC/IM completed 11/03/14 DUARTE SAINZ M.D. DRAINAGE OF SKIN ABSCESS completed 12/01/14 DUARTE SAINZ M.D. Incision and drainage of soft tissue (procedure) completed 12/01/14 ALISTAIR, DUARTE Khan THER/PROPH/DIAG INJ IV PUSH completed 03/15/14 DUARTE SAINZ M.D. TX/PRO/DX INJ NEW DRUG ADDON completed 03/15/14 DUARTE SAINZ M.D. TX/PRO/DX INJ NEW DRUG ADDON completed 03/15/14 DUARTE SAINZ M.D. Gynecologic examination (procedure) completed 03/15/14 SAINZDUARTE MANRIQUE M.D. THER/PROPH/DIAG INJ SC/IM completed 03/27/14 VICTORIANO [...] Date/Time Departed Emergency Room [facility] 01/13/15 1:49pm Departed Emergency Room [facility] 01/12/15 1:08am Departed Emergency Room [facility] 01/03/15 8:41am Departed Emergency Room [facility] 12/01/14 10:41pm Departed Emergency Room [facility] 11/30/14 10:32am Departed Emergency Room [facility] 11/27/14 12:57pm Departed Emergency Room [facility] 11/26/14 4:07pm Departed Emergency Room [facility] 11/03/14 5:04pm Departed Emergency Room [facility] 10/16/14 12:09pm Departed Emergency Room [facility] 09/28/14 3:12pm Departed Emergency Room [facility] 09/26/14 8:40am Departed Emergency Room [facility] 09/22/14 12:44pm Departed Emergency Room [facility] 09/09/14 2:10am Departed Emergency Room [facility] 09/07/14 7:13pm Departed Emergency Room [facility] 09/07/14 2:25pm Departed Emergency Room [facility] 09/03/14 2:13pm Departed Emergency Room [facility] 08/19/14 2:57am Departed Emergency Room [facility] 08/09/14 1:57pm Departed Emergency Room [facility] 07/30/14 8:44am Departed Emergency Room [facility] 07/28/14 7:19pm Departed Emergency Room [facility] 07/28/14 4:19pm Departed Emergency Room [facility] 07/26/14 3:57pm Departed Emergency Room [facility] 07/18/14 7:47am Departed Emergency Room [facility] 07/03/14 8:25am Departed Emergency Room [facility] 06/05/14 12:06pm Departed Emergency Room [facility] 05/16/14 11:13am Departed Emergency Room [facility] 05/11/14 8:24am Departed Emergency Room [facility] 05/08/14 7:22am Departed Emergency Room [facility] 05/04/14 11:11am Departed Emergency Room [facility] 04/27/14 11:11am Departed Emergency Room [facility] 04/23/14 9:41am Departed Emergency Room [facility] 04/07/14 12:34pm Departed Emergency Room [facility] 03/27/14 10:38am Departed Emergency Room [facility] 03/15/14 12:11pm Departed Emergency Room [facility] 03/02/14 10:49am Departed Emergency Room [facility] 01/16/14 8:33am Recent Diagnosis Headache
--- OUTSIDE RECORDS SUMMARY | 2017-01-06 01:44 | XMS REPORT | Continuity of Care Document ---
Author Author [facility] Organization [facility] Address Unknown Phone Unavailable Support Name Relationship Address Phone RAFA GARCIA M.D. Caregiver [facility] [address] [place] [address] PINO FAULKNER Next Of Kin [address] [place] [address] CELL Insurance Providers Payer Name Policy Number Subscriber Name Relationship [facility] [id number] Nicholas Garcia 02 Chief Complaint and Reason for Visit Chief Complaint Abdominal Pain Reason for Visit [id number] Problems Medical Problems Problem Onset Date Status [...] Unknown Active RUQ abdominal pain Unknown Active Medications Medication Dose Route Sig [...] Mg PO TWICE A DAY 08/19/14 Active Carisoprodol 350 Mg PO THREE TIMES A DAY PRN SPASM 12 Qty 09/26/14 Active Diclofenac Sodium 75 Mg PO Every 12 hours as needed PRN PAIN 20 Qty Active Social History Social History Problem Response Recorded Date/Time Hx Alcohol Use No 12/22/2007 4:43pm Hx Substance Use No 09/30/2007 3:35pm Smoking Status Heavy Tobacco Smoker 09/28/2014 3:13pm Query Response Start Date Stop Date Smoking Status Heavy Tobacco Smoker Hospital Discharge Instructions No hospital discharge instructions. Plan of Care Discharge Date 09/28/14 5:23pm Disposition 01 HOME, SELF-CARE Condition at Discharge Stable Instructions/Education Provided Abdominal Pain (ED) Prescriptions See Medications Section Additional Instructions/Education 1. Take diclofenac as needed for pain. 2. Return to ER if worsening symptoms/new concerns. 3. Follow up with/establish with a primary care physician. 4. Continue the previously prescribed soma as needed for muscular spasm. Functional Status No functional status results. Allergies, Adverse Reactions, Alerts Allergen Type Severity Reaction Status Last Updated Codeine Adverse Reaction Unknown GI UPSET Active 08/09/14 Morphine Adverse Reaction Unknown Nausea/Vomiting Active 08/09/14 Tramadol Adverse Reaction Unknown SEIZURE Active 08/09/14 Quinolones Allergy Unknown SWELLING IN HANDS Active 08/09/14 Immunizations No immunization records. Vital Signs Acute Vital Signs Vital Response Date/Time Blood Pressure 107/68 mm Hg Blood Pressure Mean 81 mm Hg Temperature (Fahrenheit) 97.7 degrees F (96.0 - 99.9) Temperature (Calculated Celsius) 36.80990 degrees C Temperature Source Oral Pulse Pulse Rate: ED 83 bpm Respiratory Rate 19 breaths per minute (10 - 20) Height [...] NONE SOURCE: URINE, CLEAN CATCH Urine Specific [employer] September 28, 2014 12:00am >=1.030 1.005-1.030 SOURCE: [...] SAINZ,DUARTE Khan THER/PROPH/DIAG INJ SC/IM completed 09/26/14 ALISTAIR,DUARTE Khan THER/PROPH/DIAG INJ SC/IM completed 09/26/14 DUARTE SAINZ M.D. DRAINAGE OF SKIN ABSCESS completed 11/01/13 GEOVANNY,GUANACO Treviño M.D. Incision and drainage of soft tissue (procedure) completed 11/01/13 GEOVANNY, GUANACO Treviño M.D. THER/PROPH/DIAG INJ SC/IM completed 11/30/13 VICTORIANO STANLEY M.D. THER/PROPH/DIAG INJ SC/IM completed 11/30/13 VICTORIANO STANLEY M.D. THER/PROPH/DIAG INJ SC/IM completed 11/30/13 VICTORIANO STANLEY M.D. THER/PROPH/DIAG INJ SC/IM completed 12/01/13 YABUT,GUANACO Treviño M.D. THER/PROPH/DIAG INJ SC/IM completed 12/01/13 YABUT,GUANACO Treviño M.D. THER/PROPH/DIAG INJ SC/IM completed 12/01/13 YASHALINI,GUANACO Treviño M.D. THER/PROPH/DIAG INJ IV PUSH completed 03/15/14 DUARTE SAINZ M.D. TX/PRO/DX INJ NEW DRUG ADDON completed 03/15/14 ALISTAIR,DUARTE Khan TX/PRO/DX INJ NEW DRUG ADDON completed 03/15/14 [...] Encounters Encounter Location Date/Time Departed Emergency Room [facility] 09/28/14 3:12pm Departed Emergency Room [facility] 09/26/14 8:40am Departed Emergency Room [facility] 09/22/14 12:44pm Departed Emergency Room [facility] 09/09/14 2:10am Departed Emergency Room [facility] 09/07/14 7:13pm Departed Emergency Room [facility] 09/07/14 2:25pm Departed Emergency Room [facility] 09/03/14 2:13pm Departed Emergency Room [facility] 08/19/14 2:57am Departed Emergency Room [facility] 08/09/14 1:57pm Departed Emergency Room [facility] 07/30/14 8:44am Departed Emergency Room [facility] 07/28/14 7:19pm Departed Emergency Room [facility] 07/28/14 4:19pm Departed Emergency Room [facility] 07/26/14 3:57pm Departed Emergency Room [facility] 07/18/14 7:47am Departed Emergency Room [facility] 07/03/14 8:25am Departed Emergency Room [facility] 06/05/14 12:06pm Departed Emergency Room [facility] 05/16/14 11:13am Departed Emergency Room [facility] 05/11/14 8:24am Departed Emergency Room [facility] 05/08/14 7:22am Departed Emergency Room [facility] 05/04/14 11:11am Departed Emergency Room [facility] 04/27/14 11:11am Departed Emergency Room [facility] 04/23/14 9:41am Departed Emergency Room [facility] 04/07/14 12:34pm Departed Emergency Room [facility] 03/27/14 10:38am Departed Emergency Room [facility] 03/15/14 12:11pm Departed Emergency Room [facility] 03/02/14 10:49am Departed Emergency Room [facility] 01/16/14 8:33am Departed Emergency Room [facility] 12/20/13 12:20pm Departed Emergency Room [facility] 12/08/13 12:38pm Departed Emergency Room [facility] 12/01/13 5:06pm Departed Emergency Room [facility] 11/30/13 12:40pm Departed Emergency Room [facility] 11/01/13 3:13pm Departed Emergency Room [facility] 10/30/13 3:55pm Departed Emergency Room [facility] 10/08/13 9:00pm Departed Emergency Room [facility] 09/29/13 1:05pm Recent Diagnosis
--- OUTSIDE RECORDS SUMMARY | 2017-01-06 01:44 | XMS REPORT | Continuity of Care Document ---
Author Author [facility] Organization [facility] Address Unknown Phone Unavailable Support Name Relationship Address Phone VICTORIANO STANLEY M.D. Caregiver [employer] [address] [place] [address] PINO FAULKNER Next Of Kin [address] [place] [address] CELL Insurance Providers Payer Name Policy Number Subscriber Name Relationship Self Pay Insurance Wong Garcia 01 Self / Same As Patient Chief Complaint and Reason for Visit Chief Complaint Headache Reason for Visit Migraine Problems Medical Problems Problem Onset Date Status [...] vaginosis Unknown Active Ovarian cyst Unknown Active Medications Medication Dose Route Sig [...] day as needed 15 Qty 07/15/12 Discontinued Oxycodone/Acetaminophen 1 Tab PO Every 6 hours as needed 4 Qty for pain 04/07/14 Active Promethazine Hcl 25 Mg PO Every 8 hours as needed 8 Qty 04/07/14 Active Social History Social History Problem Response Recorded Date/Time Hx Alcohol Use No 12/22/2007 4:43pm Hx Substance Use No 09/30/2007 3:35pm Smoking Status Heavy Tobacco Smoker 04/07/2014 12:37pm Query Response Start Date Stop Date Smoking Status Heavy Tobacco Smoker Hospital Discharge Instructions No hospital discharge instructions. Plan of Care Discharge Date 04/07/14 1:43pm Disposition 01 HOME, SELF-CARE Condition at Discharge Stable Instructions/Education Provided Acute Headache (ED) Prescriptions See Medications Section Referrals EMETERIO LEONG M.D. Functional Status No functional status results. Allergies, Adverse Reactions, Alerts Allergen Type Severity Reaction Status Last Updated Codeine Adverse Reaction Unknown GI UPSET Active 03/15/14 Hydromorphone Adverse Reaction Unknown SEVERE HEADACHE Active 03/15/14 Morphine Adverse Reaction Unknown Nausea/Vomiting Active 03/15/14 Quinolones Allergy Unknown SWELLING IN HANDS Active 03/15/14 Tramadol Adverse Reaction Unknown SEIZURE Active 03/15/14 Immunizations No immunization records. Vital Signs Acute Vital Signs Vital Response Date/Time Blood Pressure 133/77 mm Hg 04/07/2014 1:43pm Blood Pressure Mean 95 mm Hg 04/07/2014 1:43pm Pulse 04/07/2014 1:43pm Pulse Rate: ED 104 bpm 04/07/2014 1:43pm Respiratory Rate 16 breaths per minute (10 - 20) 04/07/2014 1:43pm Results Test Source Date Result Interp. Ref. Range Comments Gram Stain Cerebral Spinal Fluid July 23, 2011 12:00am Vaginitis Screen Culture Cervix March 15, 2014 1:15pm Yeast Species Group A Streptococcus Screen (DARÍO) Throat December 20, 2013 12:47pm Urine Culture Urine,Clean Catch December 05, 2007 9:30am Wound Culture Arm-Left June 16, 2013 5:30am NO GROWTH AFTER 2 DAYS Procedures Procedure Status Date Provider(s) THER/PROPH/DIAG INJ SC/IM completed 04/07/13 JOEL MAURICE DO THER/PROPH/DIAG INJ SC/IM completed 04/07/13 JOEL MAURICE DO DRAINAGE OF SKIN ABSCESS completed 06/16/13 JOEL MAURICE DO Incision and drainage of soft tissue (procedure) completed 06/16/13 JOEL MAURICE DO THER/PROPH/DIAG INJ SC/IM completed 08/02/13 LILA URIBE [...] INJ SC/IM completed 03/27/14 VICTORIANO STANLEY M.D. Encounters Encounter Location Date/Time Departed Emergency Room [facility] 04/07/14 12:34pm Departed Emergency Room [facility] 03/27/14 10:38am Departed Emergency Room [facility] 03/15/14 12:11pm Departed Emergency Room [facility] 03/02/14 10:49am Departed Emergency Room [facility] 01/16/14 8:33am Departed Emergency Room [facility] 12/20/13 12:20pm Departed Emergency Room [facility] 12/08/13 12:38pm Departed Emergency Room [facility] 12/01/13 5:06pm Departed Emergency Room [facility] 11/30/13 12:40pm Departed Emergency Room [facility] 11/01/13 3:13pm Departed Emergency Room [facility] 10/30/13 3:55pm Departed Emergency Room [facility] 10/08/13 9:00pm Departed Emergency Room [facility] 09/29/13 1:05pm Departed Emergency Room [facility] 09/27/13 4:56pm Departed Emergency Room [facility] 09/12/13 8:17am Departed Emergency Room [facility] 08/24/13 10:10am Departed Emergency Room [facility] 08/04/13 5:24pm Departed Emergency Room [facility] 08/02/13 1:19pm [facility] 08/01/13 12:56pm Dep[facility]ed Emergency Room [facility] 07/06/13 7:59am [facility] 06/29/13 6:55pm Departed Emergency Room [facility] 06/18/13 9:18am Departed Emergency Room [facility] 06/16/13 4:13am [facility] 06/06/13 1:44pm [facility] 05/05/13 3:52pm [facility] 05/04/13 7:46pm Departed Emergency Room [facility] 04/07/13 11:59pm Recent Diagnosis Migraine
--- OUTSIDE RECORDS SUMMARY | 2017-01-06 01:44 | XMS REPORT | Continuity of Care Document ---
Author Author [facility] Organization [facility] Address Unknown Phone Unavailable Support Name Relationship Address Phone SHILA TIDWELL D.O. Caregiver [employer] [address] [place] [address] PINO FAULKNER Next Of Kin [address] [place] [address] CELL Insurance Providers Payer Name Policy Number Subscriber Name Relationship Self Pay Insurance Wong Garcia 01 Self / Same As Patient Chief Complaint and Reason for Visit Chief Complaint Elbow Pain Reason for Visit Olecranon bursitis of right elbow Problems Medical Problems Problem Onset Date Status [...] Olecranon bursitis of right elbow Unknown Active Medications Medication Dose Route Sig [...] day as needed 15 Qty 07/15/12 Discontinued Alprazolam 0.25 Mg PO Every 8 hours as needed 10 Qty 05/08/14 Active Sulfamethoxazole-Trimethoprim 1 Tab PO TWICE A DAY 05/11/14 Active Ketoprofen 75 Mg PO Every 8 hours as needed 15 Qty 05/11/14 Active Hydrocodone-Acetaminophen 1 Tab PO Every 4 hours as needed 15 Qty 05/11 Active Social History Social History Problem Response Recorded Date/Time Hx Alcohol Use No 12/22/2007 4:43pm Hx Substance Use No 09/30/2007 3:35pm Smoking Status Heavy Tobacco Smoker 05/11/2014 8:24am Query Response Start Date Stop Date Smoking Status Heavy Tobacco Smoker Hospital Discharge Instructions No hospital discharge instructions. Plan of Care Discharge Date 05/11/14 9:05am Disposition 01 HOME, SELF-CARE Condition at Discharge Improved/Stable Instructions/Education Provided Elbow Bursitis (ED) Prescriptions See Medications Section Referrals SHRUTHI PETERSON M.D. Functional Status No functional status results. [...] Vital Signs Vital Response Date/Time Blood Pressure 115/72 mm Hg 05/11/2014 9:04am Blood Pressure Mean 86 mm Hg 05/11/2014 9:04am Pulse 05/11/2014 9:04am Pulse Rate: ED 99 bpm 05/11/2014 9:04am Respiratory Rate 16 breaths per minute (10 - 20) 05/11/2014 9:04am Results Test Source Date Result Interp. Ref. Range Comments Gram Stain Cerebral Spinal Fluid July 23, 2011 12:00am Vaginitis Screen Culture Cervix March 15, 2014 1:15pm Yeast Species Group A Streptococcus Screen (DARÍO) Throat December 20, 2013 12:47pm Urine Culture Urine,Clean Catch December 05, 2007 9:30am Wound Culture Arm-Left June 16, 2013 5:30am NO GROWTH AFTER 2 DAYS Procedures Procedure Status Date Provider(s) DRAINAGE OF SKIN ABSCESS completed 06/16/13 JOEL [...] INJ SC/IM completed 05/08/14 VICTORIANO STANLEY M.D. Encounters Encounter [facility]11[facility]14 8:24am [facility] 05/08/14 7:22am Departed Emergency Room [facility] 05/04/14 11:11am Departed Emergency Room [facility] 04/27/14 11:11am Departed Emergency Room [facility] 04/23/14 9:41am Departed Emergency Room [facility] 04/07/14 12:34pm Departed Emergency Room [facility] 03/27/14 10:38am Departed Emergency Room [facility] 03/15/14 12:11pm Departed Emergency Room [facility] 03/02/14 10:49am Departed Emergency Room [facility] 01/16/14 8:33am Departed Emergency Room [facility] 12/20/13 12:20pm Departed Emergency Room [facility] 12/08/13 12:38pm Departed Emergency Room [facility] 12/01/13 5:06pm Departed Emergency Room [facility] 11/30/13 12:40pm Departed Emergency Room [facility] 11/01/13 3:13pm Departed Emergency Room [facility] 10/30/13 3:55pm Departed Emergency Room [facility] 10/08/13 9:00pm Departed Emergency Room [facility] 09/29/13 1:05pm Departed Emergency Room [facility] 09/27/13 4:56pm Departed Emergency Room [facility] 01/06/14 8:17am Departed Emergency Room [facility] 08/24/13 10:10am Departed Emergency Room [facility] 08/04/13 5:24pm Departed Emergency Room [facility] 08/02/13 1:19pm Departed Emergency Room [facility] 08/01/13 12:56pm Departed Emergency Room [facility] 07/06/13 7:59am Departed Emergency Room [facility] 06/29/13 6:55pm Departed Emergency Room [facility] 06/18/13 9:18am Departed Emergency Room [facility] 06/16/13 4:13am Departed Emergency Room [facility] 06/06/13 1:44pm Recent Diagnosis
--- OUTSIDE RECORDS SUMMARY | 2017-01-06 01:44 | XMS REPORT | Continuity of Care Document ---
Author Author [facility] Organization [facility] Address Unknown Phone Unavailable Support Name Relationship Address Phone VICTORIANO STANLEY M.D. Caregiver [employer] [address] [place] [address] PINO FAULKNER Next Of Kin [address] [place] [address] CELL Insurance Providers Payer Name Policy Number Subscriber Name Relationship State [facility] [id number] Wong Garcia 01 Self / Same As Patient [facility] [id number] Aleksandar Garcia 02 Problems Medical Problems Problem Onset Date Status [...] DAY PRN SPASM 15 Qty 07/03/14 Discontinued Bvkuhmsegh-Aowndycdpnupx-Mcxhl 1 Tab PO THREE TIMES A DAY For MIGRAINE 10 Qty 11/03/14 Active Social History Social History Problem Response Recorded Date/Time Hx Alcohol Use No 12/22/2007 4:43pm Hx Substance Use No 09/30/2007 3:35pm Smoking Status Heavy Tobacco Smoker 01/12/2015 1:11am Query Response Start Date Stop Date Smoking Status Heavy Tobacco Smoker Hospital Discharge Instructions No hospital discharge instructions. Plan of Care Discharge Date 01/12/15 1:20am Disposition 07 LEFT WITHOUT BEING SEEN Condition at Discharge Stable Prescriptions See Medications Section Functional Status No [...] Vital Signs Vital Response Date/Time Blood Pressure 126/76 mm Hg Blood Pressure Mean 93 mm Hg Temperature (Fahrenheit) 97.7 degrees F (96.0 - 99.9) Temperature (Calculated Celsius) 36.59692 degrees C Temperature Source Oral Pulse Pulse Rate: ED 91 bpm Respiratory Rate 16 breaths per minute [...] NONE SOURCE: URINE, CLEAN CATCH Urine Specific [place] September 28, 2014 12:00am >=1.030 1.005-1.030 SOURCE: [...] SAINZ M.D. THER/PROPH/DIAG INJ SC/IM completed 07/26/14 ALISTAIR,DUARTE Khan [...] RAFA GARCIA M.D. Encounters Encounter Location Date/Time Registered Emergency Room [facility] 01/12/15 1:08am Departed Emergency Room [facility] 01/03/15 8:41am Departed Emergency Room [facility] 12/01/14 10:41pm Departed Emergency Room [facility] 11/30/14 10:32am Departed Emergency Room [facility] 11/27/14 12:57pm Departed Emergency Room [facility] 11/26/14 4:07pm Departed Emergency Room [facility] 11/03/14 5:04pm Departed Emergency Room [facility] 10/16/14 12:09pm Departed Emergency Room [facility] 09/28/14 3:12pm Departed Emergency Room [facility] 09/26/14 8:40am Departed Emergency Room [facility] 09/22/14 12:44pm Departed Emergency Room [facility] 09/09/14 2:10am Departed Emergency Room [facility] 09/07/14 7:13pm Departed Emergency Room [facility] 01/01/15 2:25pm [facility]arted [facility] [place] 09/03/14 2:13pm Departed Emergency Room [facility] [place] 08/19/14 2:57am Departed Emergency Room [facility] [place] 08/09/14 1:57pm Departed Emergency Room [facility] [place] 07/30/14 8:44am Departed Emergency Room [facility] [place] 07/28/14 7:19pm Departed Emergency Room [facility] [place] 07/28/14 4:19pm Departed Emergency Room [facility] [place] 07/26/14 3:57pm Departed Emergency Room [facility] 07/18/14 7:47am Departed Emergency Room [facility] [place] 07/03/14 8:25am Departed Emergency Room [facility] [place] 06/05/14 12:06pm Departed Emergency Room [facility] 05/16/14 11:13am Departed Emergency Room [facility] 05/11/14 8:24am Departed Emergency Room [facility] 05/08/14 7:22am Departed Emergency Room [facility] 05/04/14 11:11am Departed Emergency Room [facility] 04/27/14 11:11am Departed Emergency Room [facility] [place] 04/23/14 9:41am Departed Emergency Room [facility] 04/07/14 12:34pm Departed Emergency Room [facility] 03/27/14 10:38am Departed Emergency Room [facility] 03/15/14 12:11pm Departed Emergency Room [facility] 03/02/14 10:49am Departed Emergency Room [facility] 01/16/14 8:33am
--- OUTSIDE RECORDS SUMMARY | 2017-01-06 01:44 | XMS REPORT | Continuity of Care Document ---
Author Author [facility] Organization [facility] Address Unknown Phone Unavailable Support Name Relationship Address Phone VICTORIANO STANLEY M.D. Caregiver [employer] [address] [place] [address] PINO FAULKNER Next Of Kin [address] [place] [address] CELL Insurance Providers Payer Name Policy Number Subscriber Name Relationship Self Pay Insurance Wong Garcia 01 Self / Same As Patient Chief Complaint and Reason for Visit Chief Complaint Throat Pain Reason for Visit Throat pain Concussion Problems Medical Problems Problem Onset Date Status [...] Throat pain Unknown Active Concussion Unknown Active Medications Medication Dose Route Sig [...] hours as needed 8 Qty 04/07/14 Active Oxycodone/Acetaminophen 1 Tab PO Every 6 hours as needed 8 Qty Active Social History Social History Problem Response Recorded Date/Time Hx Alcohol Use No 12/22/2007 4:43pm Hx Substance Use No 09/30/2007 3:35pm Smoking Status Heavy Tobacco Smoker 04/23/2014 9:44am Query Response Start Date Stop Date Smoking Status Heavy Tobacco Smoker Hospital Discharge Instructions No hospital discharge instructions. Plan of Care Discharge Date 04/23/14 11:34am Disposition 01 HOME, SELF-CARE Condition at Discharge Stable Instructions/Education Provided Concussion (ED) Prescriptions See Medications Section Referrals ABDIRAHMAN DEY DO Functional Status No functional status results. Allergies, [...] Vital Signs Vital Response Date/Time Blood Pressure 100/50 mm Hg 04/23/2014 11:33am Blood Pressure Mean 67 mm Hg 04/23/2014 11:33am Pulse 04/23/2014 11:33am Pulse Rate: ED 79 bpm 04/23/2014 11:33am Respiratory Rate 14 breaths per minute (10 - 20) 04/23/2014 11:33am Results Test Source Date Result Interp. Ref. [...] INJ SC/IM completed 04/07/14 VICTORIANO STANLEY M.D. Encounters Encounter Location Date/Time Departed Emergency Room [facility] 04/23/14 9:41am Departed Emergency Room [facility] 04/07/14 12:34pm Departed Emergency Room [facility] 03/27/14 10:38am Departed Emergency Room [facility] 03/15/14 12:11pm Departed Emergency Room [facility] 03/02/14 10:49am Departed Emergency Room [facility] 01/16/14 8:33am Departed Emergency Room [facility] 12/20/13 12:20pm Departed Emergency Room [facility] 12/08/13 12:38pm Departed Emergency Room [facility] 12/01/13 5:06pm Departed Emergency Room [facility] 11/30/13 12:40pm Departed Emergency Room [facility] 11/01/13 3:13pm Departed Emergency Room [facility] 10/30/13 3:55pm Departed Emergency Room [facility] 10/08/13 9:00pm Departed Emergency Room [facility] 09/29/13 1:05pm Departed Emergency Room [facility] 09/27/13 4:56pm Departed Emergency Room [facility] 09/12/13 8:17am Departed Emergency Room [facility] 08/24/13 10:10am Departed Emergency Room [facility] 08/04/13 5:24pm Departed Emergency Room [facility] 08/02/13 1:19pm Departed Emergency Room [facility] 08/01/13 12:56pm Departed Emergency Room [facility] 07/06/13 7:59am Departed Emergency Room [facility] 06/29/13 6:55pm Departed Emergency Room [facility] 06/18/13 9:18am Departed Emergency Room [facility] 06/16/13 4:13am Departed Emergency Room [facility] 06/06/13 1:44pm Departed Emergency Room [facility] 05/05/13 3:52pm Departed Emergency Room [facility] 05/04/13 7:46pm Recent Diagnosis
--- OUTSIDE RECORDS SUMMARY | 2017-01-06 01:44 | XMS REPORT | Continuity of Care Document ---
Author Author [facility] Organization [facility] Address Unknown Phone Unavailable Support Name Relationship Address Phone SILVIO MATOS MD Caregiver [address] [place] [address] Unavailable MERRY LUCAS MD Caregiver [address] [place] [address] Unavailable PINO FAULKNER Next Of Kin [address] [place], [place] [id number] Insurance Providers Guarantor Wong Garcia Address [address] [place] [address] Email DENIED11-08-16 Payer [facility] Policy Number [id number] Subscriber's Name Wong Garcia Relationship 18 Self Effective Date 16 Expiration Date 16 Chief Complaint and Reason for Visit Chief Complaint Abdominal Pain Reason for Visit Constipation Problems Active Problems Medical Problem Onset Date Status Chest pain Unknown Acute Hypokalemia Unknown Acute Pleurisy Unknown Acute Past Problems Medical Problem Onset Date Chest wall pain Unknown Chronic GERD Unknown Constipation Unknown Constipation Unknown Constipation Unknown Dehydration Unknown GERD (gastroesophageal reflux disease) Unknown GERD (gastroesophageal reflux disease) Unknown Headache Unknown Methamphetamine abuse Unknown Methamphetamine abuse Unknown Moderate dehydration Unknown Opioid abuse Unknown Patient left without being seen Unknown Seizure Unknown Medications Current Home Medications Medication Dose Units Route Directions Days Qty Instructions Start Date Alprazolam 0.5 Mg Tablet 0.5 Mg Oral Three Times A Day as needed for Anxiety 09/14/16 Buspirone Hcl 5 Mg Tablet 1 Tab Oral Bidprn as needed for Anxiety 11/08/16 Hyoscyamine (Levbid) 0.375 Mg Tablet 1 Tab Oral Twice A Day 30 Tablet 11/08/16 Pantoprazole Sodium 40 Mg Tablet.dr 40 Mg Oral Twice A Day Venlafaxine Hcl (Effexor Xr) 75 Mg Cap.er.24h 75 Mg Oral Daily Social History Social History Problem Response Recorded Date/Time Onset Date Status Chewing Tobacco Status No 11/08/2016 4:54am Not Applicable Not Applicable Hx Substance Use Y METH 11/08/2016 4:54am Not Applicable Not Applicable Hx Alcohol Use No 11/08/2016 4:54am Not Applicable Not Applicable Has the pt used tobacco in the last 12 months Yes 10/03/2016 6:27am Not Applicable Not Applicable Tobacco Usage smoke 10/18/2015 9:53pm Not Applicable Not Applicable Query Response Start Date Stop Date Smoking Status Current every day smoker Hospital Discharge Instructions No hospital discharge instructions. Plan of Care Discharge Date 11/08/16 8:40am Disposition 01 DISCHARGED HOME, SELF-CARE Condition at Discharge Improved Instructions/Education Provided Constipation (ED) Prescriptions See Medication Section Referrals MERRY LUCAS MD Address: [address] [place] [id number] Additional Instructions/Education MiraLAX 17 g and a glass of water 3 times daily until you're next stool. Then MiraLAX 17 g and a glass of water once daily, do this on a regular daily basis. Functional Status No functional status results. Allergies, Adverse Reactions, Alerts Allergen Type Severity Reaction Status Last Updated Morphine Adverse Reaction Mild GI DISCOMFORT Active 11/08/16 Tramadol Allergy Severe SEIZURE Active 11/08/16 Levofloxacin Allergy Intermediate RASH Active 11/08/16 Immunizations Query Response on File Recorded Date/Time Hx Influenza Vaccination No 10/03/16 6:27am Hx Pneumococcal Vaccination No 10/03/16 6:27am Hx Influenza Vaccination No 10/03/16 6:27am Influenza Vaccine Hx NONE 11/08/16 4:54am Vital Signs Acute Vital Signs Vital Response Date/Time Temperature (Fahrenheit) 97.8 deg F (96.8 - 99.1) 11/08/2016 8:40am Temperature (Calculated Celsius) 36.13465 degrees C (36.0 - 37.3) 11/08/2016 8:40am Temperature Source Temporal 10/03/2016 7:59am Pulse Rate (adult) 78 bpm (60 - 100) 11/08/2016 8:40am Respiratory Rate 20 breaths/min (10 - 20) 11/08/2016 8:40am O2 Sat by Pulse Oximetry 95 % (90 - 100) 11/08/2016 8:40am Oxygen Delivery Method Room Air 10/03/2016 8:29am Blood Pressure 144/88 mm Hg 11/08/2016 8:40am Blood Pressure Source Automatic Cuff 10/03/2016 8:29am Height (Feet) 5 feet 11/08/2016 4:49am Height (Inches) 1.00 inches 11/08/2016 4:49am Weight (Kilograms) 62.100 kg 11/08/2016 4:49am Body Mass Index (BMI) 25.0 11/08/2016 4:49am Results Laboratory Results Test Name Result Units Flags Reference Collection Date/Time Result Date/ Time Comments Alcohol, Quantitative <10 MG/DL <10 09/14/2016 7:40pm 09/14/2016 8: 02pm Prolactin 55.9 NG/ML 09/14/2016 7:40pm 09/14/2016 8:22pm Normal Female (Non-): 3.0-18.6 ng/ml; Males: 3.7-17.9 ng/ml White Blood Count 8.4 T/MM3 4.5-11.0 11/08/2016 6:40am 11/08/2016 6: 45am Red Blood Count 4.90 M/MM3 4.00-5.20 11/08/2016 6:40am 11/08/2016 6: 45am Hemoglobin 14.5 GM/DL 12-16 11/08/2016 6:40am 11/08/2016 6:45am Hematocrit 42.4 % 36-46 11/08/2016 6:40am 11/08/2016 6:45am Mean Corpuscular Volume 86.5 UM3 80-100 11/08/2016 6:40am 11/08/2016 6: 45am Mean Corpuscular Hemoglobin 29.6 UUG 26-34 11/08/2016 6:40am 2016 6:45am Mean Corpuscular Hemoglobin Concent 34.2 GM/DL 31-37 11/08/2016 6:40am 11/08/2016 6:45am RDW Standard Deviation 39.3 FL 36.9-50.2 11/08/2016 6:40am 11/08/2016 6 :45am Platelet Count 228 T/MM3 130-400 11/08/2016 6:40am 11/08/2016 6:45am Mean Platelet Volume 9.8 UM3 9.4-12.4 11/08/2016 6:40am 11/08/2016 6: 45am Neutrophils (%) (Auto) 54.9 % 33-66 11/08/2016 6:40am 11/08/2016 6: 45am Lymphocytes (%) (Auto) 31.3 % 23-45 11/08/2016 6:40am 11/08/2016 6: 45am Monocytes (%) (Auto) 11.2 % H 0-9.0 11/08/2016 6:40am 11/08/2016 6:45am Eosinophils (%) (Auto) 2.0 % 0-4 11/08/2016 6:40am 11/08/2016 6:45am Basophils (%) (Auto) 0.4 % 0-2 11/08/2016 6:40am 11/08/2016 6:45am Immature Granulocyte % (Auto) 0.2 % 0.0-0.5 11/08/2016 6:40am 2016 6:45am Absolute Neutrophils (auto) 4.6 T/MM3 1.8-7.7 11/08/2016 6:40am 2016 6:45am Absolute Lymphocytes (auto) 2.6 T/MM3 1-4.8 11/08/2016 6:40am 2016 6:45am Absolute Monocytes (auto) 0.9 T/MM3 H 0-0.8 11/08/2016 6:40am 2016 6:45am Absolute Eosinophils (auto) 0.2 T/MM3 0-0.5 11/08/2016 6:40am 2016 6:45am Absolute Basophils (auto) 0.0 T/MM3 0-0.2 11/08/2016 6:40am 11/08/2016 6:45am Absolute Immature Granulocyte (auto 0.02 T/MM3 0.00-0.03 11/08/2016 6: 40am 11/08/2016 6:45am Icterus Index < 2 0-7 11/08/2016 6:40am 11/08/2016 6:55am Chemistry Specimen Hemolysis < 15 0-25 11/08/2016 6:40am 11/08/2016 6 :55am 0-25: Specimen Exhibited No Hemolysis. Turbidity < 20 0-20 11/08/2016 6:40am 11/08/2016 6:55am Sodium Level 138 MEQ/L 134-144 11/08/2016 6:40am 11/08/2016 6:55am Potassium Level 4.2 MEQ/L 3.6-5 11/08/2016 6:40am 11/08/2016 6:55am Chloride Level 105 MEQ/L 98-107 11/08/2016 6:40am 11/08/2016 6:55am Carbon Dioxide Level 25 MEQ/L 22-30 11/08/2016 6:40am 11/08/2016 6: 55am Anion Gap 8 MEQ/L 5-15 11/08/2016 6:40am 11/08/2016 6:55am Blood Urea Nitrogen 11.0 MG/DL 7-17 11/08/2016 6:40am 11/08/2016 6: 55am Creatinine 1.0 MG/DL 0.7-1.2 11/08/2016 6:40am 11/08/2016 6:55am BUN/Creatinine Ratio 11 RATIO 6-26 11/08/2016 6:40am 11/08/2016 6:55am Glomerular Filtration Rate Calc 64 11/08/2016 6:40am 11/08/2016 6: 55am Glucose Level 105 MG/DL 65-110 11/08/2016 6:40am 11/08/2016 6:55am Calculated Osmolality 265 MOSM/KG 261-280 11/08/2016 6:40am 11/08/2016 6:55am Calcium Level 9.7 MG/DL 8.4-10.2 11/08/2016 6:40am 11/08/2016 6:55am Total Bilirubin 0.60 MG/DL 0.20-1.30 11/08/2016 6:40am 11/08/2016 6: 55am Alkaline Phosphatase 90 U/L 38-126 11/08/2016 6:40am 11/08/2016 6:55am Total Protein 7.7 G/DL 6.3-8.2 11/08/2016 6:4011/08/2016 6:55am Albumin 4.6 G/DL 3.5-5.0 11/08/2016 6:40am 11/08/2016 6:55am Globulin 3.1 G/DL 2.4-3.6 11/08/2016 6:40am 11/08/2016 6:55am Albumin/Globulin Ratio 1.5 RATIO 1.1-2.2 11/08/2016 6:40am 11/08/2016 6 :55am Aspartate Amino Transf (AST/SGOT) 24 U/L 14-36 11/08/2016 6:40am 2016 6:55am Alanine Aminotransferase (ALT/SGPT) 32 U/L 9-52 11/08/2016 6:40am 11/08 6:55am Lipase 70 U/L 23-300 11/08/2016 6:40am 11/08/2016 6:55am Procedures Procedure Status Date Provider(s) Routine venipuncture Completed 09/14/16 Comprehen metabolic panel Completed 09/14/16 Drug test prsmv instrmnt Completed 09/14/16 Drug screen quantalcohols Completed 09/14/16 Assay of prolactin Completed 09/14/16 Complete cbc w/auto diff wbc Completed 09/14/16 Electrocardiogram tracing Completed 09/14/16 Hydrate iv infusion add-on Completed 09/14/16 Ther/proph/diag inj iv push Completed 09/14/16 Tx/pro/dx inj new drug addon Completed 09/14/16 Emergency dept visit Completed 09/14/16 [id number]"INJECTION, KETOROLAC TROMETHAMINE, PER 15 MG" Completed 09/14/16 [id number]"INJECTION, LORAZEPAM, 2 MG" Completed 09/14/16 [id number]"INFUSION, NORMAL SALINE SOLUTION , 1000 CC" Completed 09/14/16 Egd biopsy single/multiple Completed 10/03/16 MERRY LUCAS MD Urine test Completed 10/03/16 [id number]"INJECTION, FENTANYL CITRATE, 0.1 MG" Completed 10/03/16 [id number]"RINGERS LACTATE INFUSION, UP TO 1000 CC" Completed 10/03/16 Encounters Encounter Location Arrival/Admit Date Discharge/Depart Date Attending Provider Departed Emergency Room [facility] 11/08/16 4:37am 11/08/16 8: 40am SILVIO MATOS MD Departed [facility] 10/03/16 5:55am 10/03/16 8: 35am MERRY LUCAS MD Departed Emergency Room [facility] 09/14/16 6:58pm 09/14/16 9: 20pm SRIKANTH VOGT MD Recent Diagnosis
--- OUTSIDE RECORDS SUMMARY | 2017-01-06 01:45 | XMS REPORT | Continuity of Care Document ---
Author Author [facility] Organization [facility] Address Unknown Phone Unavailable Support Name Relationship Address Phone VICTORIANO STANLEY M.D. Caregiver [employer] [address] [place], [place] [id number] PINO FAULKNER Next Of Kin [address] [place] [address] CELL Insurance Providers Payer Name Policy Number [...] Unknown Active Bursitis of elbow Unknown Active Medications Medication Dose Route [...] hours as needed 10 Qty 05/08/14 Active Social History Social History Problem Response Recorded Date/Time Hx Alcohol Use No 12/22/2007 4:43pm Hx Substance Use No 09/30/2007 3:35pm Smoking Status Heavy Tobacco Smoker 05/08/2014 7:25am Query Response Start Date Stop Date Smoking Status Heavy Tobacco Smoker Hospital Discharge Instructions No hospital discharge instructions. Plan of Care Discharge Date 05/08/14 8:09am Disposition 01 HOME, SELF-CARE Condition at Discharge Stable Instructions/Education Provided Migraine Headache (ED) Stress (ED) Prescriptions See Medications Section Referrals BERNADINE GONZALEZ M.D. Functional Status No functional status results. [...] Vital Signs Vital Response Date/Time Blood Pressure 129/74 mm Hg 05/08/2014 8:08am Blood Pressure Mean 92 mm Hg 05/08/2014 8:08am Pulse 05/08/2014 8:08am Pulse Rate: ED 94 bpm 05/08/2014 8:08am Respiratory Rate 18 breaths per minute (10 - 20) 05/08/2014 8:08am Results No known relevant diagnostic tests, laboratory data and/or discharge summary. Procedures Procedure Status Date Provider(s) DRAINAGE OF SKIN ABSCESS completed 06/16/13 JOEL MAURICE DO Incision and drainage of soft tissue (procedure) completed 06/16/13 JOEL MAURICE DO THER/PROPH/DIAG INJ SC/IM completed 08/02/13 LILA URIBE M.D. THER/PROPH/DIAG INJ SC/IM completed 08/02/13 LILA URIBE M.D. DRAINAGE OF SKIN ABSCESS completed 11/01/13 GUANACO SMALL M.D. Incision and drainage of soft tissue (procedure) completed 11/01/13 GUANACO SMALL M.D. THER/PROPH/DIAG INJ SC/IM completed 11/30/13 VICTORIANO [...] Encounters Encounter Location Date/Time Departed Emergency Room [facility] 05/08/14 7:22am Departed Emergency Room [facility] 05/04/14 11:11am Departed Emergency Room [facility] 04/27/14 11:11am Departed Emergency Room [facility] 04/23/14 9:41am Departed Emergency Room [facility] 04/07/14 12:34pm Departed Emergency Room [facility] 03/27/14 10:38am Departed Emergency Room [facility] 03/15/14 12:11pm Departed Emergency Room [facility] 03/02/14 10:49am Departed Emergency Room [facility] 01/16/14 8:33am Departed Emergency Room [facility] 12/20/13 12:20pm Departed Emergency Room [facility] 12[facility]08/13 12:38pm [facility] 12/01/13 5:06pm Dep[facility]ed Emergency Room [facility] 11/30/13 12:40pm Departed Emergency Room [facility] 11/01/13 3:13pm [facility] 10/30/13 3:55pm [facility] 10/08/13 9:00pm Departed Emergency Room [facility] 09/29/13 1:05pm [facility] 09/27/13 4:56pm Departed Emergency Room [facility] 09/12/13 8:17am [facility] 08/24/13 10:10am [facility] 08/04/13 5:24pm [facility] 08/02/13 1:19pm [facility] 08/01/13 12:56pm [facility] 07/06/13 7:59am Departed Emergency Room [facility] 06/29/13 6:55pm Departed Emergency Room [facility] 06/18/13 9:18am Departed Emergency Room [facility] 06/16/13 4:13am Departed Emergency Room [facility] 06/06/13 1:44pm Recent Diagnosis Migraine
--- OUTSIDE RECORDS SUMMARY | 2017-01-06 01:45 | XMS REPORT | Continuity of Care Document ---
Author Author [facility] Organization [facility] Address Unknown Phone Unavailable Support Name Relationship Address Phone RAFA GARCIA M.D. Caregiver [employer] [address] [place] [address] PINO FAULKNER Next Of Kin [address] [place] [address] CELL Insurance Providers Payer Name Policy Number Subscriber Name Relationship [facility] [id number] Aleksandar Garcia 02 Chief Complaint and Reason for Visit Chief Complaint Abscess Reason for Visit [id number] Problems Medical Problems Problem Onset Date Status [...] Active Contusion of left hand Unknown Active Right ankle sprain Unknown Active Right ankle sprain Unknown Active Contusion of left hand Unknown Active Abscess of right arm Unknown Active Abscess of right arm Unknown Active Medications Medication Dose Route Sig [...] DAY PRN SPASM 15 Qty 07/03/14 Discontinued Acetaminophen/Butalbital/Caffeine 1 Tab PO Every 6 hours as needed For MIGRAINE 20 Qty 01/13/15 Active Hydrocodone-Acetaminophen 1-2 Tab PO THREE TIMES A DAY PRN PAIN 14 Qty for pain 03/30/15 Active Sulfamethoxazole-Trimethoprim 1 Tab PO TWICE A DAY For BACTINF 14 Qty 04/01/15 Active Hydrocodone-Acetaminophen 1-2 Tab PO Q4-6H PRN PAIN 10 Qty 04/01/15 Active Social History Social History Problem Response Recorded Date/Time Hx Alcohol Use No 12/22/2007 4:43pm Hx Substance Use No 09/30/2007 3:35pm Smoking Status Heavy Tobacco Smoker 04/01/2015 4:47am Query Response Start Date Stop Date Smoking Status Heavy Tobacco Smoker Hospital Discharge Instructions No hospital discharge instructions. Plan of Care Discharge Date 04/01/15 6:15am Disposition 01 HOME, SELF-CARE Condition at Discharge Stable Instructions/Education Provided Abscess (ED) Prescriptions See Medications Section Referrals EMETERIO LEONG M.D. Additional Instructions/Education 1. Followup with your doctor in 2-3 days for packing removal. 2. The antibiotic as prescribed. 3. Use pain medication as needed. 4. Return to emergency room if worsening symptoms or other new concerns. Functional Status No functional status results. Allergies, Adverse Reactions, Alerts Allergen Type Severity Reaction Status Last Updated Codeine Adverse Reaction Unknown GI UPSET Active 01/13/15 Morphine Adverse Reaction Unknown Nausea/Vomiting Active 01/13/15 Tramadol Adverse Reaction Unknown SEIZURE Active 01/13/15 Quinolones Allergy Unknown SWELLING IN HANDS Active 01/13/15 Immunizations No immunization records. Vital Signs Acute Vital Signs Vital Response Date/Time Blood Pressure 119/96 mm Hg Blood Pressure Mean 104 mm Hg Temperature (Fahrenheit) 98.3 degrees F (96.0 - 99.9) Temperature (Calculated Celsius) 36.07767 degrees C Temperature Source Oral Pulse Pulse Rate: ED 97 bpm Respiratory Rate 16 breaths per minute [...] NONE SOURCE: URINE, CLEAN CATCH Urine Specific [place] September 28, 2014 12:00am >=1.030 1.005-1.030 SOURCE: [...] ) W SOURCE: URINE, CLEAN CATCH Urine pH September [...] GARCIA M.D. THER/PROPH/DIAG INJ SC/IM completed 07/03/14 ALISTAIR,DUARTE Khan THER/PROPH/DIAG INJ SC/IM completed 07/03/14 ALISTAIR,DUARTE Khan DRAINAGE OF SKIN ABSCESS completed 07/18/14 ALISTAIR,DUARTE Khan Incision and drainage of soft tissue (procedure) completed 07/18/14 ALISTAIR, DUARTE Khan THER/PROPH/DIAG INJ SC/IM completed 07/26/14 ALISTAIR,DUARTE Khan THER/PROPH/DIAG INJ SC/IM completed 07/26/14 ALISTAIR,DUARTE Khan THER/PROPH/DIAG INJ SC/IM completed 08/09/14 OMAR LIZ M.D. THER/PROPH/DIAG INJ SC/IM completed 09/03/14 ALISTAIR,DUARTE Khan THER/PROPH/DIAG INJ SC/IM completed 09/09/14 ALISTAIR,DUARTE Khan THER/PROPH/DIAG INJ SC/IM completed 09/09/14 ALISTAIR,DUARTE Khan THER/PROPH/DIAG INJ SC/IM completed 09/26/14 ALISTAIR,DUARTE Khan THER/PROPH/DIAG INJ SC/IM completed 09/26/14 ALISTAIR,DURATE Khan THER/PROPH/DIAG INJ IV PUSH completed 09/28/14 [...] completed 12/01/14 DUARTE SAINZ M.D. THER/PROPH/DIAG INJ SC/IM [facility]DIAG [facility]/IM completed 01/13/15 KORIN GOYAL M.D. THER/PROPH/DIAG INJ SC/IM completed 04/07/14 VICTORIANO [...] Encounters Encounter Location Date/Time Departed Emergency Room [facility] 04/01/15 4:40am Departed Emergency Room [facility] 03/30/15 1:50am Departed Emergency Room [facility] 03/13/15 10:50am Departed Emergency Room [facility] 02/13/15 7:40am Departed Emergency Room [facility] 01/15/15 10:42am Departed Emergency Room [facility] 01/13/15 1:49pm Departed Emergency Room [facility] 01/12/15 1:08am Departed Emergency Room [facility] 01/03/15 8:41am Departed Emergency Room [facility] 12/01/14 10:41pm Departed Emergency Room [facility] 11/30/14 10:32am Departed Emergency Room [facility] 11/27/14 12:57pm Departed Emergency Room [facility] 11/26/14 4:07pm Departed Emergency Room [facility] B[facility] 11/03/14 5:04pm Departed Emergency Room [facility] 10/16/14 12:09pm Departed Emergency Room [facility] 09/28/14 3:12pm Departed Emergency Room [facility] 09/26/14 8:40am Departed Emergency Room [facility] 09/22/14 12:44pm Departed Emergency Room [facility] 09/09/14 2:10am Departed Emergency Room [facility] 09/07/14 7:13pm Departed Emergency Room [facility] 09/07/14 2:25pm Departed Emergency Room [facility] 09/03/14 2:13pm Departed Emergency Room [facility] 08/19/14 2:57am Departed Emergency Room [facility] 08/09/14 1:57pm Departed Emergency Room [facility] 07/30/14 8:44am Departed Emergency Room [facility] 07/28/14 7:19pm Departed Emergency Room [facility] 07/28/14 4:19pm Departed Emergency Room [facility] 07/26/14 3:57pm Departed Emergency Room [facility] 07/18/14 7:47am Departed Emergency Room [facility]inia Josh [facility] 07/03/14 8:25am Departed Emergency Room [facility] 06/05/14 12:06pm Departed Emergency Room [facility] 05/16/14 11:13am Departed Emergency Room [facility] 05/11/14 8:24am Departed Emergency Room [facility] 05/08/14 7:22am Departed Emergency Room [facility] Co[facility] 05/04/14 11:11am Departed Emergency Room [facility] Co[facility] 04/27/14 11:11am Departed Emergency Room [facility] Co[facility] 04/23/14 9:41am Departed Emergency Room [facility] 04/07/14 12:34pm Recent Diagnosis
--- OUTSIDE RECORDS SUMMARY | 2017-01-06 01:45 | XMS REPORT | Continuity of Care Document ---
Author Author [facility] Organization [facility] Address Unknown Phone Unavailable Support Name Relationship Address Phone VICTORIANO STANLEY M.D. Caregiver [employer] [address] [place] [address] PINO FAULKNER Next Of Kin [address] [place] [address] CELL Insurance Providers Payer Name Policy Number Subscriber Name Relationship Self Pay Insurance Wong Garcia 01 Self / Same As Patient Chief Complaint and Reason for Visit Chief Complaint Headache Reason for Visit Headache Ovarian cyst Problems Medical Problems Problem Onset Date Status [...] Every 6 hours as needed 10 Qty for pain 03/27/14 Active Social History Social History Problem Response Recorded Date/Time Hx Alcohol Use No 12/22/2007 4:43pm Hx Substance Use No 09/30/2007 3:35pm Smoking Status Heavy Tobacco Smoker 03/27/2014 10:41am Query Response Start Date Stop Date Smoking Status Heavy Tobacco Smoker Hospital Discharge Instructions No hospital discharge instructions. Plan of Care Discharge Date 03/27/14 11:08am Disposition 01 HOME, SELF-CARE Condition at Discharge Stable Instructions/Education Provided Ovarian Cyst (ED) Acute Headache (ED) Prescriptions See Medications Section Referrals ADRIENNE GARCIA CAMILLE A M.D SEEBER, AMY D. M.D. Functional Status No functional status results. [...] Vital Signs Vital Response Date/Time Blood Pressure 119/79 mm Hg 03/27/2014 10:39am Blood Pressure Mean 92 mm Hg 03/27/2014 10:39am Temperature (Fahrenheit) 98.7 degrees F (96.0 - 99.9) 03/27/2014 10:39am Temperature (Calculated Celsius) 37.87193 degrees C 03/27/2014 10:39am Temperature Source Oral 03/27/2014 10:39am Pulse 03/27/2014 10:39am Pulse Rate: ED 99 bpm 03/27/2014 10:39am Respiratory Rate 16 breaths per minute (10 - 20) 03/27/2014 10:39am Results No known relevant diagnostic tests, laboratory data and/or discharge summary. Procedures Procedure Status Date Provider(s) THER/PROPH/DIAG INJ SC/IM completed 04/03/13 VICTORIANO STANLEY M.D. THER/PROPH/DIAG INJ SC/IM completed 04/03/13 VICTORIANO STANLEY M.D. THER/PROPH/DIAG INJ SC/IM completed 04/04/13 VICTORIANO STANLEY M.D. THER/PROPH/DIAG INJ SC/IM completed 04/04/13 STANLEY,VICTORIANO K M.D. THER/PROPH/DIAG INJ SC/IM completed 04/04/13 VICTORIANO STANLEY M.D. THER/PROPH/DIAG INJ SC/IM completed 04/04/13 VICTORIANO STANLEY M.D. THER/PROPH/DIAG INJ SC/IM completed 04/04/13 VICTORIANO STANLEY M.D. THER/PROPH/DIAG INJ SC/IM completed 04/07/13 KAYLENEJOEL Rea DO THER/PROPH/DIAG INJ SC/IM completed 04/07/13 KAYLENEJOEL Rea DO DRAINAGE OF SKIN ABSCESS completed 06/16/13 MAURICE,JOEL Rea DO Incision and drainage of soft tissue [...] examination (procedure) completed 03/15/14 DUARTE SAINZ M.D. Encounters Encounter Location Date/Time Departed Emergency Room [facility] 03/27/14 10:38am Departed Emergency Room [facility] B[facility] 03/15/14 12:11pm Departed Emergency Room Herminia BJosh Eros [facility] 03/02/14 10:49am Departed Emergency Room [facility] BJosh [facility] 01/16/14 8:33am Departed Emergency Room [facility] BJosh [facility] 12/20/13 12:20pm Departed Emergency Room [facility] BJosh [facility] 12/08/13 12:38pm Departed Emergency Room [facility] 12/01/13 5:06pm Departed Emergency Room [facility] 11/30/13 12:40pm Departed Emergency Room [facility] 11/01/13 3:13pm Departed Emergency Room [facility] 10/30/13 3:55pm Departed Emergency Room [facility] 10/08/13 9:00pm Departed Emergency Room [facility] 09/29/13 1:05pm Departed Emergency Room [facility] 09/27/13 4:56pm Departed Emergency Room [facility] 09/12/13 8:17am Departed Emergency Room [facility] 08/24/13 10:10am Departed Emergency Room [facility] 08/04/13 5:24pm Departed Emergency Room [facility]. [facility] 08/02/13 1:19pm Departed Emergency Room [facility] 08/01/13 12:56pm Departed Emergency Room Herminia Thanh [facility] 07/06/13 7:59am Departed Emergency Room [facility]lad Co[facility] 06/29/13 6:55pm Departed Emergency Room [facility] Co[facility] 06/18/13 9:18am Departed Emergency Room [facility] Co[facility] 06/16/13 4:13am Departed Emergency Room [facility] Co[facility] 06/06/13 1:44pm Departed Emergency Room [facility] 05/05/13 3:52pm Departed Emergency Room [facility] Co[facility] 05/04/13 7:46pm Departed Emergency Room [facility] 04/07/13 11:59pm Departed Emergency Room [facility] 04/04/13 5:09am Departed Emergency Room [place] [facility] 04/03/13 9:52pm Recent Diagnosis Headache
--- OUTSIDE RECORDS SUMMARY | 2017-01-06 01:45 | XMS REPORT | Continuity of Care Document ---
Author Author [facility] Organization [facility] Address Unknown Phone Unavailable Support Name Relationship Address Phone OMAR LIZ M.D. Caregiver [address] [place] [address] [address] [place] [address] PINO FAULKNER Next Of Kin [address] [place] [address] CELL Insurance Providers Payer Name Policy Number Subscriber Name Relationship Self Pay Insurance Wong Garcia 01 Self / Same As Patient Chief Complaint and Reason for Visit Chief Complaint Skin Problem Reason for Visit Insect bite Problems Medical Problems Problem Onset Date Status Acute right ear pain Unknown Active [place]ustachean tube dysfunction Unknown Active Ear ache Unknown Active Acute on chronic headache Unknown Active Viral illness Unknown Active Headache Unknown Active Malignant hypertension Unknown Active multidrug abuse Unknown Active Contusion Unknown Active Contusion multiple sites Unknown Active sprained elbow Unknown Active Abscess Unknown Active Insect bite Unknown Active Medications Medication Dose Route Sig [...] day as needed 15 Qty 07/15/12 Discontinued Social History Social History Problem Response Recorded Date/Time Hx Alcohol Use No 12/22/2007 4:43pm Hx Substance Use No 09/30/2007 3:35pm Smoking Status Current every day smoker 03/02/2014 10:50am Query Response Start Date Stop Date Smoking Status Current every day smoker Hospital Discharge Instructions No hospital discharge instructions. Plan of Care Discharge Date 03/02/14 11:06am Disposition 01 HOME, SELF-CARE Condition at Discharge Stable Instructions/Education Provided Insect Bite or Sting (ED) Prescriptions See Medications Section Functional Status No functional status results. Allergies, Adverse Reactions, Alerts Allergen Type Severity Reaction Status Last Updated Codeine Adverse Reaction Unknown GI UPSET Active 11/30/13 Hydromorphone Adverse Reaction Unknown SEVERE HEADACHE Active 11/30/13 Morphine Adverse Reaction Unknown Nausea/Vomiting Active 11/30/13 Quinolones Allergy Unknown SWELLING IN HANDS Active 11/30/13 Tramadol Adverse Reaction Unknown SEIZURE Active 11/30/13 Immunizations No immunization records. Vital Signs Acute Vital Signs Vital Response Date/Time Blood Pressure / 03/02/2014 10:51am Blood Pressure Mean 101 mm Hg 03/02/2014 10:51am Temperature (Fahrenheit) 98.8 degrees F (96.0 - 99.9) 03/02/2014 10:51am Temperature (Calculated Celsius) 37.92537 degrees C 03/02/2014 10:51am Temperature Source Oral 03/02/2014 10:51am Pulse 03/02/2014 10:51am Pulse Rate: ED 106 bpm 03/02/2014 10:51am Respiratory Rate 18 breaths per minute (10 - 20) 03/02/2014 10:51am Results No known relevant diagnostic tests, laboratory [...] STANLEY M.D. THER/PROPH/DIAG INJ SC/IM completed 04/07/13 MAURICE,JOEL Rea DO THER/PROPH/DIAG INJ SC/IM completed 04/07/13 MAURICE,JOEL Rea DO DRAINAGE OF SKIN ABSCESS completed 06/16/13 MAURICE,JOEL Rea DO Incision and drainage of soft tissue (procedure) completed 06/16/13 MAURICE, JOEL Rea DO THER/PROPH/DIAG INJ SC/IM completed 08/02/13 LILA [...] INJ SC/IM completed 12/01/13 YABUT,GUANACO Treviño M.D. Encounters Encounter Location Date/Time Departed Emergency Room [facility] 03/02/14 10:49am Departed Emergency Room [facility] 01/16/14 8:33am Departed Emergency Room [facility] 12/20/13 12:20pm Departed Emergency Room [facility] 12/08/13 12:38pm Departed Emergency Room [facility] 12/01/13 5:06pm Departed Emergency Room [facility] 11/30/13 12:40pm Departed Emergency Room [facility] 11/01/13 3:13pm Departed Emergency Room [facility] 10/30/13 3:55pm Departed Emergency Room [facility] 10/08/13 9:00pm Departed Emergency Room [facility] 09/29/13 1:05pm Departed Emergency Room [facility] 09/27/13 4:56pm Departed Emergency Room [facility] 09/12/13 8:17am Departed Emergency Room [facility] 08/24/13 10:10am Departed Emergency Room [facility] 08/04/13 5:24pm Departed Emergency Room [facility] 08/02/13 1:[facility] 12:[facility] 07/06/13 7:59[facility] 06/29/13 6:55pm [facility] 06/18/13 9:18am [facility] 06/16/13 4:13am Departed Emergency Room [place] [facility] 06/06/13 1:44pm [facility] 05/05/13 3:52pm [facility] 05/04/13 7:46pm Departed Emergency Room [facility] 04/07/13 11:59pm Departed Emergency Room [facility] 04/04/13 5:09am [facility] 04/03/13 9:52pm Recent Diagnosis
--- OUTSIDE RECORDS SUMMARY | 2017-01-06 01:45 | XMS REPORT | Continuity of Care Document ---
Author Author [facility] Organization [facility] Address Unknown Phone Unavailable Support Name Relationship Address Phone RAFA GARCIA M.D. Caregiver [employer] [address] [place] [address] PINO FAULKNER Next Of Kin [address] [place] [address] CELL Insurance Providers Payer Name Policy Number Subscriber Name Relationship Self Pay Insurance Wong Garcia 01 Self / Same As Patient Chief Complaint and Reason for Visit Chief Complaint Rib Injury Reason for Visit Contusion of rib on right side Problems Medical Problems Problem Onset Date Status [...] of rib on right side Unknown Active Medications Medication Dose Route Sig [...] DAY PRN SPASM 15 Qty 07/03/14 Discontinued Diclofenac Sodium 75 Mg PO Every 12 hours as needed PRN PAIN 20 Qty Active Social History Social History Problem Response Recorded Date/Time Hx Alcohol Use No 12/22/2007 4:43pm Hx Substance Use No 09/30/2007 3:35pm Smoking Status Heavy Tobacco Smoker 07/30/2014 8:47am Query Response Start Date Stop Date Smoking Status Heavy Tobacco Smoker Hospital Discharge Instructions No hospital discharge instructions. Plan of Care Discharge Date 07/30/14 9:21am Disposition 01 HOME, SELF-CARE Condition at Discharge Stable Instructions/Education Provided Contusion (ED) Prescriptions See Medications Section Functional Status [...] Vital Signs Vital Response Date/Time Blood Pressure 122/81 mm Hg Blood Pressure Mean 95 mm Hg Temperature (Fahrenheit) 97.7 degrees F (96.0 - 99.9) Temperature (Calculated Celsius) 36.58739 degrees C Temperature Source Oral Pulse Pulse Rate: ED 106 bpm Respiratory Rate 20 breaths per minute (10 - 20) Height [...] ) W SOURCE: URINE, CLEAN CATCH Urine Phencyclidine Screen September 29, 2013 1:20pm Negative NEGATIVE Urine Propoxyphene Screen September 29, 2013 1:20pm Positive NEGATIVE Urine Protein March 15, 2014 1:15pm Negative NEGATIVE SOURCE: URINE, CLEAN CATCH Urine RBC April 07, 2012 2:10pm None /hpf NONE COMMENT: 01SOURCE: URINE, CLEAN CATCH Urine Specific [place] March 15, 2014 1:15pm 1.015 1.005-1.030 SOURCE [...] SAINZ M.D. THER/PROPH/DIAG INJ SC/IM completed 08/02/13 JOJO,LILA R M.D. THER/PROPH/DIAG INJ SC/IM completed 08/02/13 LILA [...] STANLEY M.D. THER/PROPH/DIAG INJ SC/IM completed 05/08/14 STANLEY,VICTORIANO K M.D. THER/PROPH/DIAG INJ SC/IM completed 05/08/14 VICTORIANO STANLEY M.D. THER/PROPH/DIAG INJ SC/IM completed 05/11/14 SHILA TIDWELL D.O. THER/PROPH/DIAG INJ SC/IM completed 05/16/14 RAFA GARCIA M.D. Encounters Encounter Location Date/Time Departed Emergency Room [facility] 07/30/14 8:44am Departed Emergency Room [facility] 07/28/14 7:19pm Registered Emergency Room [facility] 07/28/14 4:19pm Departed Emergency Room [facility] 07/26/14 3:57pm Departed Emergency Room [facility] 07/18/14 7:47am Departed Emergency Room [facility] 07/03/14 8:25am Departed Emergency Room [facility] 06/05/14 12:06pm Departed Emergency Room [facility] 05/16/14 11:13am Departed Emergency Room [facility] 05/11/14 8:24am Departed Emergency Room [facility] 05/08/14 7:22am Departed Emergency Room [facility] 05/04/14 11:11am Departed Emergency Room [facility] 04/27/14 11:11am Departed Emergency Room [facility] 04/23/14 9:41am Departed Emergency Room [facility] 04/07/14 12:34pm Departed Emergency Room [facility] 03/27/14 10:38am Departed Emergency Room [facility] 03/15/14 12:11pm Departed Emergency Room [facility] 03/02/14 10:49am Departed Emergency Room [facility] 01/16/14 8:33am Departed Emergency Room [facility] 12/20/13 12:20pm Departed Emergency Room [facility] 12/08/13 12:38pm Departed Emergency Room [facility] 12/01/13 5:06pm Departed Emergency Room [facility] 11/30/13 12:40pm Departed Emergency Room [place] [facility] 11/01/13 3:13pm Departed Emergency Room [facility] 10/30/13 3:55pm Departed Emergency Room [place] [facility] 10/08/13 9:00pm Departed Emergency Room [place] [facility] 09/29/13 1:05pm Departed Emergency Room [facility] 09/27/13 4:56pm Departed Emergency Room [facility] [place] [facility] 09/12/13 8:17am Departed Emergency Room [facility] [facility] 08/24/13 10:10am Departed Emergency Room [place] [facility] 08/04/13 5:24pm Departed Emergency Room [place] [facility] 08/02/13 1:19pm Departed Emergency Room [place] [facility] 08/01/13 12:56pm Recent Diagnosis
--- OUTSIDE RECORDS SUMMARY | 2017-01-06 01:46 | XMS REPORT | Continuity of Care Document ---
Author Author [facility] Organization [facility] Address Unknown Phone Unavailable Support Name Relationship Address Phone DUARTE SAINZ M.D. Caregiver [employer] [address] [place] [address] PINO FAULKNER Next Of Kin [address] [place] [address] CELL Insurance Providers Payer Name Policy Number Subscriber Name Relationship Self Pay Insurance Wong Garcia 01 Self / Same As Patient Chief Complaint and Reason for Visit Chief Complaint Fall Reason for Visit [id number] Problems Medical Problems Problem Onset Date Status [...] Unknown Active Hx of fall Unknown Active Medications Medication Dose Route Sig [...] needed 4 Qty for pain 04/07/14 Active Oxycodone/Acetaminophen 1 Tab PO Q6H PRN 10 Qty 04/27/14 Active Social History Social History Problem Response Recorded Date/Time Hx Alcohol Use No 12/22/2007 4:43pm Hx Substance Use No 09/30/2007 3:35pm Smoking Status Heavy Tobacco Smoker 04/27/2014 11:14am Query Response Start Date Stop Date Smoking Status Heavy Tobacco Smoker Hospital Discharge Instructions No hospital discharge instructions. Plan of Care Discharge Date 04/27/14 12:07pm Disposition 01 HOME, SELF-CARE Condition at Discharge Stable Prescriptions See Medications [...] Vital Signs Vital Response Date/Time Blood Pressure 145/93 mm Hg 04/27/2014 12:07pm Blood Pressure Mean 110 mm Hg 04/27/2014 12:07pm Pulse 04/27/2014 12:07pm Pulse Rate: ED 91 bpm 04/27/2014 12:07pm Respiratory Rate 16 breaths per minute (10 - 20) 04/27/2014 12:07pm Results Test Source Date Result Interp. Ref. [...] Encounters Encounter Location Date/Time Departed Emergency Room [facility] 04/27/14 11:11am Departed Emergency Room [facility] 04/23/14 9:41am Departed Emergency Room [facility] 04/07/14 12:34pm Departed Emergency Room [facility] 03/27/14 10:38am Departed Emergency Room [facility] 03/15/14 12:11pm Departed Emergency Room [facility] 03/02/14 10:49am Departed Emergency Room [facility] 01/16/14 8:33am Departed Emergency Room [facility] 12/20/13 12:20pm Departed Emergency Room [facility] 12/08/13 12:38pm Departed Emergency Room [facility] 12/01/13 5:06pm Departed Emergency Room [facility] 11/30/13 12:40pm Departed Emergency Room [facility] 11/01/13 3:13pm Departed Emergency Room [facility] 10/30/13 3:55pm Departed Emergency Room [facility] 10/08/13 9:00pm Departed Emergency Room [facility] 09/29/13 1:05pm Departed Emergency Room [facility] 09/27/13 4:56pm Departed Emergency Room [facility] 09/12/13 8:17am Departed Emergency Room [facility] 08/24/13 10:10am Departed Emergency Room [facility] 08/04/13 5:24pm Departed Emergency Room [facility] 08/02/13 1:19pm Departed Emergency Room [facility] Thanh [facility] 08/01/13 12:56pm Departed Emergency Room [facility]h [facility] 07/06/13 7:59am Departed Emergency Room [facility] 06/29/13 6:55pm Departed Emergency Room [facility]h [facility] 06/18/13 9:18am Departed Emergency Room [facility] 06/16/13 4:13am Departed Emergency Room [facility] 06/06/13 1:44pm Departed Emergency Room [facility] 05/05/13 3:52pm Departed Emergency Room [facility] 05/04/13 7:46pm Recent Diagnosis
--- OUTSIDE RECORDS SUMMARY | 2017-01-06 01:46 | XMS REPORT | Continuity of Care Document ---
Author Author [facility] Organization [facility] Address Unknown Phone Unavailable Support Name Relationship Address Phone RAFA GARCIA M.D. Caregiver [employer] [address] [place] [address] PINO FAULKNER Next Of Kin [address] [place] [address] CELL Insurance Providers Payer Name Policy Number Subscriber Name Relationship [facility]-Other [id number] Aleksandar Garcia 02 Problems Medical Problems Problem [...] Unknown Active Left wrist sprain Unknown Active Medications Medication Dose Route Sig [...] Mg PO TWICE A DAY 08/19/14 Active Vjgkhcaizi-Wmpsenvdwcact-Uiais 1 Tab PO THREE TIMES A DAY For MIGRAINE 10 Qty 11/03/14 Active Social History Social History Problem Response Recorded Date/Time Hx Alcohol Use No 12/22/2007 4:43pm Hx Substance Use No 09/30/2007 3:35pm Smoking Status Heavy Tobacco Smoker 11/26/2014 4:13pm Query Response Start Date Stop Date Smoking Status Heavy Tobacco Smoker Hospital Discharge Instructions No hospital discharge instructions. Plan of Care Discharge Date 11/26/14 4:16pm Disposition 07 LEFT WITHOUT BEING SEEN Condition [...] Vital Signs Vital Response Date/Time Blood Pressure 117/89 mm Hg Blood Pressure Mean 98 mm Hg Temperature (Fahrenheit) 97.8 degrees F (96.0 - 99.9) Temperature (Calculated Celsius) 36.44658 degrees C Temperature Source Oral Pulse Pulse Rate: ED 110 bpm Respiratory Rate 18 breaths per minute [...] NONE SOURCE: URINE, CLEAN CATCH Urine Specific [place] September 28, 2014 12:00am >=1.030 1.005-1.030 SOURCE: [...] ALISTAIR,DUARTE Khan THER/PROPH/DIAG INJ SC/IM completed 09/09/14 SAINZ,UDARTE Khan THER/PROPH/DIAG INJ SC/IM completed 09/09/14 SAINZ,DUARTE Khan THER/PROPH/DIAG INJ SC/IM completed 09/26/14 SAINZ,DUARTE Khan THER/PROPH/DIAG INJ SC/IM completed 09/26/14 SAINZ,DUARTE Khan THER/PROPH/DIAG INJ IV PUSH completed 09/28/14 MOLL,RAFA Mayberry M.D. TX/PRO/DX INJ NEW DRUG ADDON completed 09/28/14 MOLL,RAFA Mayberry M.D. TX/PRO/DX INJ NEW DRUG ADDON completed 09/28/14 MOLL,RAFA Mayberry M.D. THER/PROPH/DIAG INJ SC/IM completed 11/03/14 SAINZ,DUARTE Khan THER/PROPH/DIAG INJ SC/IM completed 11/03/14 SAINZ,DUARTE Khan THER/PROPH/DIAG INJ SC/IM completed 11/30/13 VICTORIANO STANLEY M.D. THER/PROPH/DIAG INJ SC/IM completed 11/30/13 VICTORIANO STANLEY M.D. THER/PROPH/DIAG INJ SC/IM completed 11/30/13 VICTORIANO STANLEY M.D. THER/PROPH/DIAG INJ SC/IM completed 12/01/13 YABUT,GUANACO Treviño M.D. THER/PROPH/DIAG INJ SC/IM completed 12/01/13 YABUT,GUANACO Treviño M.D. THER/PROPH/DIAG INJ SC/IM completed 12/01/13 GEOVANNY,GUANACO Treviño M.D. THER/PROPH/DIAG INJ IV PUSH completed [...] Encounters Encounter Location Date/Time Departed Emergency Room [facility] 11/26/14 4:07pm Departed Emergency Room [facility] 11/03/14 5:04pm Departed Emergency Room [facility] 10/16/14 12:09pm Departed Emergency Room [facility] 09/28/14 3:12pm Departed Emergency Room [facility] 09/26/14 8:40am Departed Emergency Room [facility] 09/22/14 12:44pm Departed Emergency Room [facility] 09/09/14 2:10am Departed Emergency Room [facility] 09/07/14 7:13pm Departed Emergency Room [facility] 09/07/14 2:25pm Departed Emergency Room [facility] 09/03/14 2:13pm Departed Emergency Room [facility] 08/19/14 2:57am Departed Emergency Room [facility] 08/09/14 1:57pm Departed Emergency Room [facility] 07/30/14 8:44am Departed Emergency Room [facility] 07/28/14 7:19pm Departed Emergency Room [facility] 07/28/14 4:19pm Departed Emergency Room [facility] 07/26/14 3:57pm Departed Emergency Room [facility] 07/18/14 7:47am Departed Emergency Room [facility] 07/03/14 8:25am Departed Emergency Room [facility] 06/05/14 12:06pm Departed Emergency Room [facility] 05/16/14 11:13am Departed Emergency Room [facility] 05/11/14 8:24am Departed Emergency Room [facility] 05/08/14 7:22am Departed Emergency Room [facility] 05/04/14 11:11am Departed Emergency Room [facility] 04/27/14 11:11am Departed Emergency Room [facility] 04/23/14 9:41am Departed Emergency Room [facility] 04/07/14 12:34pm Departed Emergency Room [facility] 03/27/14 10:38am Departed Emergency Room [facility] 03/15/14 12:11pm Departed Emergency Room [facility] 03/02/14 10:49am Departed Emergency Room [facility] 01/16/14 8:33am Departed Emergency Room [facility] 12/20/13 12:20pm Departed Emergency Room [facility] 12/08/13 12:38pm Departed Emergency Room [facility] 12/01/13 5:06pm Departed Emergency Room [facility] 11/30/13 12:40pm
--- OUTSIDE RECORDS SUMMARY | 2017-01-06 01:46 | XMS REPORT | Continuity of Care Document ---
Author Author [facility] Organization [facility] Address Unknown Phone Unavailable Support Name Relationship Address Phone LILA URIBE M.D. Caregiver [address] [place] [address] PINO FAULKNER Next Of Kin [address] [place] [address] CELL Insurance Providers Payer Name Policy Number Subscriber Name Relationship [facility]-Other [id number] Aleksandar Garcia 02 Chief Complaint and Reason for Visit Chief Complaint Ankle Pain Reason for Visit [id number] Problems Medical Problems Problem Onset Date Status [...] Unknown Active Right ankle sprain Unknown Active Medications Medication Dose Route [...] needed For MIGRAINE 20 Qty 01/13/15 Active Oxycodone/Acetaminophen 1 Ea PO THREE TIMES A DAY PRN PAIN 14 Qty for pain 03/13/15 Active Social History Social History Problem Response Recorded Date/Time Hx Alcohol Use No 12/22/2007 4:43pm Hx Substance Use No 09/30/2007 3:35pm Smoking Status Heavy Tobacco Smoker 03/13/2015 10:50am Query Response Start Date Stop Date Smoking Status Heavy Tobacco Smoker Hospital Discharge Instructions No hospital discharge instructions. Plan of Care Discharge Date 03/13/15 12:04pm Disposition 01 HOME, SELF-CARE Condition at Discharge Stable Instructions/Education Provided Ankle Sprain (ED) Prescriptions See Medications Section Referrals EMI CORONA MD Additional Instructions/Education WEAR SPLINT FOR COMFORT FOR ONE WEEK Functional Status No functional status results. Allergies, Adverse Reactions, Alerts Allergen Type Severity Reaction Status Last Updated Codeine Adverse Reaction Unknown GI UPSET Active 05/09/15 Morphine Adverse Reaction Unknown Nausea/Vomiting Active 01/13/15 Tramadol Adverse Reaction Unknown SEIZURE Active 01/13/15 Quinolones Allergy Unknown SWELLING IN HANDS Active 01/13/15 Immunizations No immunization records. Vital Signs Acute Vital Signs Vital Response Date/Time Blood Pressure 136/94 mm Hg Blood Pressure Mean 108 mm Hg Temperature (Fahrenheit) 97.7 degrees F (96.0 - 99.9) Temperature (Calculated Celsius) 36.69235 degrees C Temperature Source Oral Pulse Pulse Rate: ED 92 bpm Respiratory Rate 16 breaths per minute (10 - 20) Height (Feet) 5 ft Height (Inches) 1 in. Weight (Pounds) 125 lbs Height 5 ft 1 in Weight 125 lb Body Mass Index 23.6 kg/m^2 Results Test Source Date Result Interp. [...] NONE SOURCE: URINE, CLEAN CATCH Urine Specific [place] September 28, 2014 12:00am >=1.030 1.005-1.030 SOURCE: [...] Date Provider(s) THER/PROPH/DIAG INJ SC/IM completed 06/05/14 MOLL,RAFA J M.D. THER/PROPH/DIAG INJ SC/IM completed 07/03/14 SAINZ,DUARTE [...] drainage of soft tissue (procedure) completed 12/01/14 ALISTIAR, DUARTE Khan THER/PROPH/DIAG INJ SC/IM completed 01/13/15 [...] Date/Time Departed Emergency Room [facility] 03/13/15 10:50am Departed Emergency Room [facility] 02/13/15 7:40am Departed Emergency Room [facility] 01/15/15 10:42am Departed Emergency Room [facility] 01/13/15 1:49pm Departed Emergency Room [facility] 01/12/15 1:08am Departed Emergency Room [facility] 01/03/15 8:41am Departed Emergency Room [facility] 12/01/14 10:41pm Departed Emergency Room [facility] 11/30/14 10:32am Departed Emergency Room [facility] 11/27/14 12:57pm Departed Emergency Room [facility] 11/26/14 4:07pm Departed Emergency Room [facility] 11/03/14 5:04pm Departed Emergency Room [facility] 10/16/14 12:09pm Departed Emergency Room [facility] 09/28/14 3:12pm Departed Emergency Room [facility] 09/26/14 8:40am Departed Emergency Room [facility] 09/22/14 12:44pm Departed Emergency Room [facility] 09/09/14 2:10am Departed Emergency Room [facility] 09/07/14 7:13pm Departed Emergency Room [facility] 09/07/14 2:25pm Departed Emergency Room [facility] 09/03/14 2:13pm Departed Emergency Room [facility] 08/19/14 2:57am Departed Emergency Room [facility] 08/09/14 1:57pm Departed Emergency Room [facility] 07/30/14 8:44am Departed Emergency Room [facility] Thanh [facility] 07/28/14 7:19pm Departed Emergency Room [facility] 07/28/14 4:19pm Departed Emergency Room [facility] 07/26/14 3:57pm Departed Emergency Room [facility] Josh [facility] 07/18/14 7:47am [facility]/14 8:25am Departed Emergency Room [facility] Josh [facility] 06/05/14 12:06pm [facility] 05/16/14 11:13am Departed Emergency Room [facility] 05/11/14 8:24am Departed Emergency Room [facility] Thanh [facility] 05/08/14 7:22am Departed Emergency Room [facility] 05/04/14 11:11am Departed Emergency Room [facility] 04/27/14 11:11am Departed Emergency Room [facility] 04/23/14 9:41am Departed Emergency Room [facility] 04/07/14 12:34pm Departed Emergency Room [facility] 03/27/14 10:38am Departed Emergency Room [facility] 03/15/14 12:11pm Recent Diagnosis
--- OUTSIDE RECORDS SUMMARY | 2017-01-06 01:46 | XMS REPORT | Continuity of Care Document ---
Author Author [facility] Organization [facility] Address Unknown Phone Unavailable Support Name Relationship Address Phone DUARTE SAINZ M.D. Caregiver [employer] [address] [place] [address] PINO FAULKNER Next Of Kin [address] [place] [address] CELL Insurance Providers Payer Name Policy Number Subscriber Name Relationship [facility]Other [id number] Aleksandar Garcia 02 Chief Complaint and Reason for Visit Chief Complaint Abscess Reason for Visit [id number] Problems Medical Problems Problem Onset Date Status [...] strain Unknown Active Axillary abscess Unknown Active Medications Medication Dose Route Sig [...] Mg PO TWICE A DAY 08/19/14 Active Dotozogmsk-Zpggncvougews-Wnzgz 1 Tab PO THREE TIMES A DAY [...] 09/30/2007 3:35pm Smoking Status Heavy Tobacco Smoker 12/01/2014 10:47pm Query Response Start Date Stop Date Smoking Status Heavy Tobacco Smoker Hospital Discharge Instructions No hospital discharge instructions. Plan of Care Discharge Date 12/02/14 12:00am Disposition 01 HOME, SELF-CARE Condition at Discharge Stable Instructions/Education Provided Abscess (ED) Prescriptions See Medications Section Additional Instructions/Education Continue with Bactrim. Use Neosporin over the area 2x/day x 1 week. Use Ibuprofen 800mg 3x/day for pain. Follow up with your regular doctor as needed. Functional Status No functional status results. Allergies, Adverse Reactions, Alerts Allergen Type Severity Reaction Status Last Updated Codeine Adverse Reaction Unknown GI UPSET Active 11/30/14 Morphine Adverse Reaction Unknown Nausea/Vomiting Active 11/30/14 Tramadol Adverse Reaction Unknown SEIZURE Active 11/30/14 Quinolones Allergy Unknown SWELLING IN HANDS Active 11/30/14 Immunizations No immunization records. Vital Signs Acute Vital Signs Vital Response Date/Time Blood Pressure 124/67 mm Hg Blood Pressure Mean 86 mm Hg Temperature (Fahrenheit) 98.0 degrees F (96.0 - 99.9) Temperature (Calculated Celsius) 36.56407 degrees C Temperature Source Oral Pulse Pulse Rate: ED 78 bpm Respiratory Rate 16 breaths per minute [...] SOURCE: URINE, CLEAN CATCH Urine Specific [place] September 28, 2014 12:00am >=1.030 1.005-1.030 SOURCE: [...] SAINZ,DUARTE Khan THER/PROPH/DIAG INJ SC/IM completed 07/03/14 SAINZ,DUARTE Khan DRAINAGE OF SKIN ABSCESS completed 07/18/14 [...] SC/IM completed 11/03/14 ALISTAIR,DUARTE Khan THER/PROPH/DIAG INJ IV PUSH completed 03/15/14 [...] Encounters Encounter Location Date/Time Departed Emergency Room [facility] 12/01/14 10:41pm Departed Emergency Room [facility] 11/30/14 10:32am Departed Emergency Room [facility] 11/27/14 12:57pm Departed Emergency Room [facility] 11/26/14 4:07pm Departed Emergency Room [facility] 11/03/14 5:04pm Departed Emergency Room [facility] 10/16/14 12:09pm Departed Emergency Room [facility] 09/28/14 3:12pm Departed Emergency Room [facility] 09/26/14 8:40am Departed Emergency Room [facility] 09/22/14 12:44pm Departed Emergency Room [facility] 09/09/14 2:10am Departed Emergency Room [facility] 09/07/14 7:13pm Departed Emergency Room [facility] 09/07/14 2:25pm Departed Emergency Room [facility] 09/03/14 2:13pm Departed Emergency Room [facility] 08/19/14 2:57am Departed Emergency Room [facility] 08/09/14 1:57pm Departed Emergency Room [facility] 07/30/14 8:44am Departed Emergency Room [facility] 07/28/14 7:19pm Departed Emergency Room [facility] 07/28/14 4:19pm Departed Emergency Room [facility] 07/26/14 3:57pm Departed Emergency Room [facility] 07/18/14 7:47am Departed Emergency Room [facility] 07/03/14 8:25am Departed Emergency Room [facility] 06/05/14 12:06pm Departed Emergency Room [facility] 05/16/14 11:13am Departed Emergency Room [facility] 05/11/14 8:24am Departed Emergency Room [facility] 05/08/14 7:22am Departed Emergency Room [facility] 05/04/14 11:11am Departed Emergency Room [facility] 04/27/14 11:11am Departed Emergency Room [facility] 04/23/14 9:41am Departed Emergency Room [facility] 04/07/14 12:34pm Departed Emergency Room [facility] 03/27/14 10:38am Departed Emergency Room [facility] 03/15/14 12:11pm Departed Emergency Room [facility] 03/02/14 10:49am Departed Emergency Room [facility] 01/16/14 8:33am Departed Emergency Room [facility] 12/20/13 12:20pm Departed Emergency Room [facility] 12/08/13 12:38pm Recent Diagnosis
--- OUTSIDE RECORDS SUMMARY | 2017-01-06 01:46 | XMS REPORT | Continuity of Care Document ---
Author Author [facility] Organization [facility] Address Unknown Phone Unavailable Support Name Relationship Address Phone RAFA GARCIA M.D. Caregiver [employer] [address] [place] [address] PINO FAULKNER Next Of Kin [address] [place] [address] CELL Insurance Providers Payer Name Policy Number Subscriber Name Relationship Self Pay Insurance Wong Garcia 01 Self / Same As Patient Chief Complaint and Reason for Visit Chief Complaint Arm Pain Reason for Visit Olecranon bursitis of [...] times a day as needed 15 Qty 04/29/ 12 07/19/12 Discontinued Cyclobenzaprine Hcl 10 Mg PO Three times a day as needed 15 Qty 07/15/12 Discontinued Pregabalin 75 Mg PO TWICE A DAY 06/05/14 Active Ibuprofen 800 Mg PO Every 4 hours as needed 06/05/14 Active Social History Social History Problem Response Recorded Date/Time Hx Alcohol Use No 12/22/2007 4:43pm Hx Substance Use No 09/30/2007 3:35pm Smoking Status Heavy Tobacco Smoker 06/05/2014 12:10pm Query Response Start Date Stop Date Smoking Status Heavy Tobacco Smoker Hospital Discharge Instructions No hospital discharge instructions. Plan of Care Discharge Date 06/05/14 1:37pm Disposition 01 HOME, SELF-CARE Condition at Discharge Stable Instructions/Education Provided Elbow Bursitis (ED) Prescriptions See Medications Section Functional Status [...] Vital Signs Vital Response Date/Time Blood Pressure 117/69 mm Hg 06/05/2014 1:09pm Blood Pressure Mean 85 mm Hg 06/05/2014 1:09pm Pulse 06/05/2014 1:09pm Pulse Rate: ED 88 bpm 06/05/2014 1:09pm Respiratory Rate 18 breaths per minute (10 - 20) 06/05/2014 1:09pm Results Test Source Date Result Interp. Ref. [...] Encounters Encounter Location Date/Time Registered Emergency Room [facility] 06/05/14 12:06pm Departed Emergency Room [facility] 05/16/14 11:13am Departed Emergency Room [facility] 05/11/14 8:24am Departed Emergency Room [facility] 05/08/14 7:22am Departed Emergency Room [facility] 05/04/14 11:11am Departed Emergency Room [facility] 04/27/14 11:11am Departed Emergency Room [facility] 04/23/14 9:41am Departed Emergency Room [facility] 04/07/14 12:34pm Departed Emergency Room [facility] 03/27/14 10:38am Departed Emergency Room [facility] 03/15/14 12:11pm Departed Emergency Room [facility] 03/02/14 10:49am Departed Emergency Room [facility] 01/16/14 8:33am Departed Emergency Room [facility] 12/20/13 12:20pm Departed Emergency Room [facility] 12/08/13 12:38pm Departed Emergency Room [facility] 12/01/13 5:06pm Departed Emergency Room [facility] 11/30/13 12:40pm Departed Emergency Room [facility] 11/01/13 3:13pm Departed Emergency Room [facility] 10/30/13 3:55pm Departed Emergency Room [facility] 10/08/13 9:00pm Departed Emergency Room [facility] 09/29/13 1:05pm Departed Emergency Room [facility] 09/27/13 4:56pm Departed Emergency Room [facility] 09/12/13 8:17am Departed Emergency Room [facility] 08/24/13 10:10am Departed Emergency Room [facility] 08/04/13 5:[facility]02[facility] 1:19[facility] 08/01/13 12:56pm [facility] 07/06/13 7:59am Departed Emergency Room [facility] 06/29/13 6:55pm Departed Emergency Room [facility] 06/18/13 9:18am [facility] 06/16/13 4:13am [facility] 06/06/13 1:44pm Recent Diagnosis
--- OUTSIDE RECORDS SUMMARY | 2017-01-06 01:47 | XMS REPORT | Continuity of Care Document ---
Author Author [facility] Organization [facility] Address Unknown Phone Unavailable Support Name Relationship Address Phone DUARTE SAINZ M.D. Caregiver [employer] [address] [place] [address] PINO FAULKNER Next Of Kin [address] [place] [address] CELL Insurance Providers Payer Name Policy Number Subscriber Name Relationship Self Pay Insurance Wong Garcia 01 Self / Same As Patient Chief Complaint and Reason for Visit Chief Complaint Abdominal Pain Reason for Visit Bacterial vaginosis Ovarian cyst Problems Medical Problems Problem Onset [...] vaginosis Unknown Active Bacterial vaginosis Unknown Active Medications Medication Dose Route Sig [...] Qty 07/15/12 Discontinued Oxycodone/Acetaminophen 1 Tab PO Q6H PRN 12 Qty 03/15/14 Active Metronidazole 500 Mg PO TWICE A DAY 14 Qty 03/15/14 Active Social History Social History Problem Response Recorded Date/Time Hx Alcohol Use No 12/22/2007 4:43pm Hx Substance Use No 09/30/2007 3:35pm Smoking Status Heavy Tobacco Smoker 03/15/2014 12:14pm Query Response Start Date Stop Date Smoking Status Heavy Tobacco Smoker Hospital Discharge Instructions No hospital discharge instructions. Plan of Care Discharge Date 03/15/14 2:17pm Disposition 01 HOME, SELF-CARE Condition at Discharge Stable Instructions/Education Provided Bacterial Vaginosis (ED) Ovarian Cyst (ED) Abdominal Pain (ED) Prescriptions See Medications Section Functional Status [...] Vital Signs Vital Response Date/Time Blood Pressure 108/71 mm Hg 03/15/2014 2:16pm Blood Pressure Mean 83 mm Hg 03/15/2014 2:16pm Pulse 03/15/2014 2:16pm Pulse Rate: ED 64 bpm 03/15/2014 2:16pm Respiratory Rate 16 breaths per minute (10 - 20) 03/15/2014 2:16pm Results No known relevant diagnostic tests, laboratory [...] Departed Emergency Room [facility] 03/15/14 12:11pm Departed Emergency Room [facility] 03/02/14 10:49am Departed Emergency Room [facility] 01/16/14 8:33am Departed Emergency Room [facility] 12/20/13 12:20pm Departed Emergency Room [facility] 12/08/13 12:38pm Departed Emergency Room [facility] 12/01/13 5:06pm Departed Emergency Room [facility] 11/30/13 12:40pm Departed Emergency Room [facility] 11/01/13 3:13pm [facility]arted [facility] 10/30/13 3:55pm Departed Emergency Room [facility] 10/08/13 9:00pm Departed Emergency Room [facility] 09/29/13 1:05pm Departed Emergency Room [facility] 09/27/13 4:56pm Departed Emergency Room [facility] 09/12/13 8:17am Departed Emergency Room [facility] 08/24/13 10:10am Departed Emergency Room [facility] 08/04/13 5:24pm Departed Emergency Room [facility] 08/02/13 1:19pm Departed Emergency Room [facility] 08/01/13 12:56pm Departed Emergency Room [facility] 07/06/13 7:59am Departed Emergency Room [facility] 06/29/13 6:55pm Departed Emergency Room [facility] 06/18/13 9:18am Departed Emergency Room [facility] 06[facility]16/13 4:13am [facility] 06/06/13 1:44pm Dep[facility] Room [facility] 05/05/13 3:52pm Departed Emergency Room [facility] 05/04/13 7:46pm Departed Emergency Room [facility] 04/07/13 11:59pm Departed Emergency Room [facility] 04/04/13 5:09am Departed Emergency Room [facility] 04/03/13 9:52pm Recent Diagnosis
--- OUTSIDE RECORDS SUMMARY | 2017-01-06 01:47 | XMS REPORT | Continuity of Care Document ---
Author Author [facility] Organization [facility] Address Unknown Phone Unavailable Support Name Relationship Address Phone DUARTE SAINZ M.D. Caregiver [employer] [address] [place] [address] PINO FAULKNER Next Of Kin [address] [place] [address] CELL Insurance Providers Payer Name Policy Number Subscriber Name Relationship Self Pay Insurance Wong Garcia 01 Self / Same As Patient Chief Complaint and Reason for Visit Chief Complaint Headache Reason for Visit Acute on chronic headache Problems Medical Problems Problem Onset Date Status [...] Active Abscess of right forearm Unknown Active Medications Medication Dose Route Sig [...] DAY PRN SPASM 15 Qty 07/03/14 Discontinued Sulfamethoxazole-Trimethoprim 1 Tab PO TWICE A DAY For BACTINF 20 Qty 07/18/14 Active Promethazine Hcl 25 Mg PO Q4H PRN NAUSEA 15 Qty 07/26/14 Active Gtcrqhhdzy-Wagscdrcvyzuv-Pelzb 1 Tab PO THREE TIMES A DAY PRN headache 10 Qty 07/26/14 Active Social History Social History Problem Response Recorded Date/Time Hx Alcohol Use No 12/22/2007 4:43pm Hx Substance Use No 09/30/2007 3:35pm Smoking Status Heavy Tobacco Smoker 07/26/2014 4:02pm Query Response Start Date Stop Date Smoking Status Heavy Tobacco Smoker Hospital Discharge Instructions No hospital discharge instructions. Plan of Care Discharge Date 07/26/14 4:47pm Disposition 01 HOME, SELF-CARE Condition at Discharge [...] Vital Signs Vital Response Date/Time Blood Pressure 135/80 mm Hg Blood Pressure Mean 98 mm Hg Temperature (Fahrenheit) 97.7 degrees F (96.0 - 99.9) Temperature (Calculated Celsius) 36.76382 degrees C Temperature Source Oral Pulse Pulse Rate: ED 90 bpm Respiratory Rate 16 breaths per minute [...] COMMENT: 01SOURCE: URINE, CLEAN CATCH Urine Specific [place] March 15, 2014 1:15pm 1.015 1.005-1.030 SOURCE [...] STANLEY M.D. THER/PROPH/DIAG INJ SC/IM completed 11/30/13 LIZETH,VICTORIANO Aviles M.D. THER/PROPH/DIAG INJ SC/IM completed 11/30/13 VICTORIANO [...] M.D. THER/PROPH/DIAG INJ SC/IM completed 03/27/14 VICTORIANO STANLYE M.D. THER/PROPH/DIAG INJ SC/IM completed 03/27/14 VICTORIANO [...] Encounters Encounter Location Date/Time Departed Emergency Room [facility] 07/26/14 3:57pm Departed Emergency Room [facility] 07/18/14 7:47am Departed Emergency Room [facility] 07/03/14 8:25am Departed Emergency Room [facility] 06/05/14 12:06pm Departed Emergency Room [facility] 05/16/14 11:13am Departed Emergency Room [facility] 05/11/14 8:24am Departed Emergency Room [facility] 05/08/14 7:22am Departed Emergency Room [facility] 05/04/14 11:11am Departed Emergency Room [facility] 04/27/14 11:11am Departed Emergency Room [facility] 04/23/14 9:41am Departed Emergency Room [facility] 04/07/14 12:34pm Departed Emergency Room [facility] 03/27/14 10:38am Departed Emergency Room [facility] 03/15/14 12:11pm Departed Emergency Room [facility] 03/02/14 10:49am Departed Emergency Room [facility] 01/16/14 8:33am Departed Emergency Room [facility] 12/20/13 12:20pm Departed Emergency Room [facility] 12/08/13 12:38pm Departed Emergency Room [facility] 12/01/13 5:06pm Departed Emergency Room [facility] 11/30/13 12:40pm Departed Emergency Room [facility] 11/01/13 3:13pm Departed Emergency Room [facility] 10/30/13 3:55pm Departed Emergency Room [facility] 10/08/13 9:00pm Departed Emergency Room [facility] 09/29/13 1:05pm Departed Emergency Room [facility] 09/27/13 4:56pm [facility] 8:17[facility] Emergency Room [facility] 08/24/13 10:10am Departed Emergency Room [facility] 08/04/13 5:24pm Departed Emergency Room [facility] 08/02/13 1:19pm Departed Emergency Room [facility] 08/01/13 12:56pm Recent Diagnosis
--- OUTSIDE RECORDS SUMMARY | 2017-01-06 01:47 | XMS REPORT | Continuity of Care Document ---
Author Author [facility] Organization [facility] Address Unknown Phone Unavailable Support Name Relationship Address Phone DUARTE SAINZ M.D. Caregiver [employer] [address] [place] [address] PINO FAULKNER Next Of Kin [address] [place] [address] CELL Insurance Providers Payer Name Policy Number Subscriber Name Relationship [facility] [id number] Aleksandar Garcia 02 Chief Complaint and Reason for Visit Chief Complaint Abscess Reason for Visit [id number] Problems Medical Problems Problem Onset Date Status [...] needed For MIGRAINE 20 Qty 01/13/15 Active Sulfamethoxazole-Trimethoprim 1 Tab PO TWICE A DAY For BACTINF 14 Qty 04/01/15 Active Hydrocodone-Acetaminophen 1-2 Tab PO Q4-6H PRN PAIN 10 Qty 04/01/15 Active Oxycodone/Acetaminophen 1 Tab PO Q6H PRN PAIN 12 Qty 04/01/15 Active Social History Social History Problem Response Recorded Date/Time Hx Alcohol Use No 12/22/2007 4:43pm Hx Substance Use No 09/30/2007 3:35pm Smoking Status Heavy Tobacco Smoker 04/01/2015 10:09pm Query Response Start Date Stop Date Smoking Status Heavy Tobacco Smoker Hospital Discharge Instructions No hospital discharge instructions. Plan of Care Discharge Date 04/01/15 11:18pm Disposition 01 HOME, SELF-CARE Condition at Discharge Stable Instructions/Education Provided Acute Wound Care (ED) Abscess (ED) Prescriptions See Medications Section Additional Instructions/Education Use Neosporin to the area 2x/day. Continue with Bactrim. Use Ibuprofen up to 800mg 3x/day. Use Percocet instead of [place] for pain. Return to the ER on Thursday to reassess your wound and pull the packing out. Return to the ER if with high fever, worsening redness, pain or swelling. Functional Status No functional status results. Allergies, Adverse Reactions, Alerts Allergen Type Severity Reaction Status Last Updated Codeine Adverse Reaction Unknown GI UPSET Active 01/13/15 Morphine Adverse Reaction Unknown Nausea/Vomiting Active 01/13/15 Tramadol Adverse Reaction Unknown SEIZURE Active 01/13/15 Quinolones Allergy Unknown SWELLING IN HANDS Active 01/13/15 Immunizations No immunization records. Vital Signs Acute Vital Signs Vital Response Date/Time Blood Pressure 115/70 mm Hg Blood Pressure Mean 85 mm Hg Temperature (Fahrenheit) 97.9 degrees F (96.0 - 99.9) Temperature (Calculated Celsius) 36.80831 degrees C Temperature Source Oral Pulse Pulse Rate: ED 92 bpm Respiratory Rate 18 breaths per minute [...] NONE SOURCE: URINE, CLEAN CATCH Urine Specific [place] September 28, 2014 12:00am >=1.030 1.005-1.030 SOURCE: [...] SAINZ M.D. THER/PROPH/DIAG INJ SC/IM completed 01/13/15 JAY JAYKORIN Rea M.D. THER/PROPH/DIAG INJ SC/IM completed 01/13/15 JAY JAYKORIN Rea M.D. THER/PROPH/DIAG INJ SC/IM completed 04/07/14 VICTORIANO [...] Encounters Encounter Location Date/Time Departed Emergency Room [facility] 04/01/15 10:03pm Departed Emergency Room [facility] 04/01/15 4:40am Departed Emergency Room [facility] 03/30/15 1:50am Departed Emergency Room [facility] 03/13/15 10:50am Departed Emergency Room [facility] 02/13/15 7:40am Departed Emergency Room [facility] 01/15/15 10:42am Departed Emergency Room [facility] 01/13/15 1:49pm Departed Emergency Room [facility] 01/12/15 1:08am Departed [facility] Room [facility] [place] 01/03/15 8:41am Departed Emergency Room [facility] [place] 12/01/14 10:41pm Departed Emergency Room [facility] [place] 11/30/14 10:32am Departed Emergency Room [facility] [place] 11/27/14 12:57pm Departed Emergency Room [facility] 11/26/14 4:07pm Departed Emergency Room [facility] [place] 11/03/14 5:04pm Departed Emergency Room [facility] 10/16/14 12:09pm Departed Emergency Room [facility] 09/28/14 3:12pm Departed Emergency Room [facility] [place] 09/26/14 8:40am Departed Emergency Room [facility] 09/22/14 12:44pm Departed Emergency Room [facility] 09/09/14 2:10am Departed Emergency Room [facility] 09/07/14 7:13pm Departed Emergency Room [facility] 09/07/14 2:25pm Departed Emergency Room [facility] 09/03/14 2:13pm Departed Emergency Room [facility] 08/19/14 2:57am Departed Emergency Room [facility] 08/09/14 1:57pm Departed Emergency Room [facility] [place] 07/30/14 8:44am Departed Emergency Room [facility] [place] 07/28/14 7:19pm Departed Emergency Room [facility] 07/28/14 4:19pm Departed Emergency Room [facility] 07/26/14 3:57pm Departed Emergency Room [facility] 07/18/14 7:47am Departed Emergency Room [facility] [place] 07/03/14 8:25am Departed Emergency Room [facility] 06/05/14 12:06pm [facility] 11:13[facility] Dep[facility]ed Emergency Room [facility] 05/11/14 8:24am Departed Emergency Room [facility] 05/08/14 7:22am Departed Emergency Room [facility] 05/04/14 11:11am Departed Emergency Room [facility] 04/27/14 11:11am Departed Emergency Room [facility] 04/23/14 9:41am Departed Emergency Room [facility] 04/07/14 12:34pm Recent Diagnosis
--- OUTSIDE RECORDS SUMMARY | 2017-01-06 01:47 | XMS REPORT | Continuity of Care Document ---
Author Author [facility] Organization [facility] Address Unknown Phone Unavailable Support Name Relationship Address Phone DUARTE SAINZ M.D. Caregiver [employer] [address] [place] [address] PINO FAULKNER Next Of Kin [address] [place] [address] CELL Insurance Providers Payer Name Policy Number Subscriber Name Relationship [facility] [id number] Aleksandar Gracia 02 Chief Complaint and Reason for Visit Chief Complaint Wrist Pain Reason for Visit [id number] Problems Medical Problems Problem Onset Date Status [...] as needed PRN PAIN 20 Qty Active Diclofenac Sodium 75 Mg PO TWICE A DAY PRN PAIN 20 Qty 10/16/14 Active Social History Social History Problem Response Recorded Date/Time Hx Alcohol Use No 12/22/2007 4:43pm Hx Substance Use No 09/30/2007 3:35pm Smoking Status Heavy Tobacco Smoker 10/16/2014 12:10pm Query Response Start Date Stop Date Smoking Status Heavy Tobacco Smoker Hospital Discharge Instructions No hospital discharge instructions. Plan of Care Discharge Date 10/16/14 12:36pm Disposition 01 HOME, SELF-CARE Condition at Discharge Stable Instructions/Education Provided Wrist Injury (ED) Prescriptions See Medications Section Additional Instructions/Education Use wrist splint x 1 week. Ice to help with swelling. Use Voltaren to help with pain. Follow up with a local doctor as needed. Functional Status No functional [...] Vital Signs Vital Response Date/Time Blood Pressure 144/105 mm Hg Blood Pressure Mean 118 mm Hg Temperature (Fahrenheit) 97.8 degrees F (96.0 - 99.9) Temperature (Calculated Celsius) 36.07041 degrees C Temperature Source Oral Pulse Pulse Rate: ED 108 bpm Respiratory Rate 20 breaths per minute (10 - 20) Height (Feet) 5 ft Height (Inches) 1 in. Weight (Pounds) 125 lbs Results Test Source Date Result Interp. [...] NONE SOURCE: URINE, CLEAN CATCH Urine Specific [place] September 28, 2014 12:00am >=1.030 1.005-1.030 SOURCE: [...] ALISTAIR,DUARTE Khan THER/PROPH/DIAG INJ SC/IM completed 07/26/14 SAINZ,DUARTE Khan THER/PROPH/DIAG INJ SC/IM completed 08/09/14 OMAR LIZ M.D. THER/PROPH/DIAG INJ SC/IM completed 09/03/14 SAINZ,DUARTE Khan THER/PROPH/DIAG INJ SC/IM completed 09/09/14 SAINZ,DUARTE Khan THER/PROPH/DIAG INJ SC/IM completed 09/09/14 SAINZ,DUARTE Khan THER/PROPH/DIAG INJ SC/IM completed 09/26/14 ALISTAIR,DUARTE Khan THER/PROPH/DIAG INJ SC/IM completed 09/26/14 SAINZ,DUARTE Khan THER/PROPH/DIAG INJ IV PUSH completed 09/28/14 RAFA GARCIA M.D. TX/PRO/DX INJ NEW DRUG ADDON completed 09/28/14 RAFA GARCIA M.D. TX/PRO/DX INJ NEW DRUG ADDON completed 09/28/14 RAFA GARCIA M.D. DRAINAGE OF SKIN ABSCESS completed 11/01/13 [...] completed 12/01/13 YASHALINI,GUANACO Treviño M.D. THER/PROPH/DIAG INJ SC/IM completed 12/01/13 GUANACO [...] Encounters Encounter Location Date/Time Departed Emergency Room [facility] 10/16/14 12:09pm Departed Emergency Room [facility] 09/28/14 3:12pm Departed Emergency Room [facility] 09/26/14 8:40am Departed Emergency Room [facility] 09/22/14 12:44pm Departed Emergency Room [facility] 09/09/14 2:10am Departed Emergency Room [facility] 09/07/14 7:13pm Departed Emergency Room [facility] 09/07/14 2:25pm Departed Emergency Room [facility] 09/03/14 2:13pm Departed Emergency Room [facility] 08/19/14 2:57am Departed Emergency Room [facility] 08/09/14 1:57pm Departed Emergency Room [facility] 07/30/14 8:44am Departed Emergency Room [facility] 07/28/14 7:19pm Departed Emergency Room [facility] 07/28/14 4:19pm Departed Emergency Room [facility] 07/26/14 3:57pm Departed Emergency Room [facility] 07/18/14 7:47am Departed Emergency Room [facility] 07/03/14 8:25am Departed Emergency Room [facility] 06/05/14 12:06pm Departed Emergency Room [facility] 05/16/14 11:13am Departed Emergency Room [facility] 05/11/14 8:24am Departed Emergency Room [facility] 05/08/14 7:22am Departed Emergency Room [facility] 05/04/14 11:11am Departed Emergency Room [facility] 04/27/14 11:11am Departed Emergency Room [facility] 04/23/14 9:41am Departed Emergency Room [facility] 04/07/14 12:34pm Departed Emergency Room [facility] 03/27/14 10:38am Departed Emergency Room [facility] 03/15/14 12:11pm Departed Emergency Room [facility] 03/02/14 10:49am Departed Emergency Room [facility] 01/16/14 8:33am Departed Emergency Room [facility] 12/20/13 12:20pm Departed Emergency Room [facility] 12/08/13 12:38pm Departed Emergency Room [facility] 12/01/13 5:06pm Departed Emergency Room [facility] 11/30/13 12:40pm Departed Emergency Room [facility] 11/01/13 3:13pm Departed Emergency Room [facility] 10/30/13 3:55pm Recent Diagnosis
--- OUTSIDE RECORDS SUMMARY | 2017-01-06 01:48 | XMS REPORT | Continuity of Care Document ---
Author Author [facility] Organization [facility] Address Unknown Phone Unavailable Support Name Relationship Address Phone LILA URIBE M.D. Caregiver [address] [place] [address] PINO FAULKNER Next Of Kin [address] [place] [address] CELL Insurance Providers Payer Name Policy Number Subscriber Name Relationship [facility] [id number] Aleksandar Garcia 02 Chief Complaint and Reason [...] PAIN 14 Qty for pain 03/30/15 Active Social History Social History Problem Response Recorded Date/Time Hx Alcohol Use No 12/22/2007 4:43pm Hx Substance Use No 09/30/2007 3:35pm Smoking Status Heavy Tobacco Smoker 03/30/2015 1:51am Query Response Start Date Stop Date Smoking Status Heavy Tobacco Smoker Hospital Discharge Instructions No hospital discharge instructions. Plan of Care Discharge Date 03/30/15 2:50am Disposition 01 HOME, SELF-CARE Condition at Discharge Stable Instructions/Education Provided Contusion (ED) Prescriptions See Medications Section Referrals CHAZ MCCLENDON MD Functional Status No functional status results. Allergies, Adverse Reactions, Alerts Allergen Type Severity Reaction Status Last Updated Codeine Adverse Reaction Unknown GI UPSET Active 01/13/15 Morphine Adverse Reaction Unknown Nausea/Vomiting Active 01/13/15 Tramadol Adverse Reaction Unknown SEIZURE Active 01/13/15 Quinolones Allergy Unknown SWELLING IN HANDS Active 01/13/15 Immunizations No immunization records. Vital Signs Acute Vital Signs Vital Response Date/Time Blood Pressure 134/78 mm Hg Blood Pressure Mean 96 mm Hg Temperature (Fahrenheit) 97.8 degrees F (96.0 - 99.9) Temperature (Calculated Celsius) 36.02226 degrees C Temperature Source Oral Pulse Pulse Rate: ED 91 bpm Respiratory Rate 20 breaths per minute [...] NONE SOURCE: URINE, CLEAN CATCH Urine Specific [place] September 28, 2014 12:00am >=1.030 1.005-1.030 SOURCE: [...] Encounters Encounter Location Date/Time Departed Emergency Room [facility] 03/30/15 1:50am Departed Emergency Room [facility] 03/13/15 10:50am Departed Emergency Room [facility] 02/13/15 7:40am Departed Emergency Room [facility] 01/15/15 10:42am Departed Emergency Room [facility] 01/13/15 1:49pm Departed Emergency Room [facility] 01/12/15 1:08am Departed Emergency Room [facility] 01/03/15 8:41am Departed Emergency Room [facility] 12/01/14 10:41pm Departed Emergency Room [facility] 11/30/14 10:32am Departed Emergency Room [facility] 11/27/14 12:57pm Departed Emergency Room [facility] 11/26/14 4:07pm Departed Emergency Room [facility] 11/03/14 5:04pm Departed Emergency Room [facility] 10/16/14 12:09pm Departed Emergency Room [facility] 09/28/14 3:12pm Departed Emergency Room [facility] 09/26/14 8:40am Departed Emergency Room [facility] 09/22/14 12:44pm Departed Emergency Room [facility] 09/09/14 2:10am Departed Emergency Room [facility] 09/07/14 7:13pm Departed Emergency Room [facility] 09/07/14 2:25pm Departed Emergency Room [facility] 09/03/14 2:13pm Departed Emergency Room [facility] 08/19/14 2:57am Departed Emergency Room [facility] 08/09/14 1:57pm Departed Emergency Room [facility] 07/30/14 8:44am Departed Emergency Room [facility] 07/28/14 7:19pm [facility] 07/28[facility]14 4:19pm [facility] 07/26/14 3:57pm Departed Emergency Room [facility] 07/18/14 7:47am Departed Emergency Room [facility] Josh [facility] 07/03/14 8:25am Departed Emergency Room [facility] 06/05/14 12:06pm Departed Emergency Room [facility] 05/16/14 11:13am Departed Emergency Room [facility] 05/11/14 8:24am Departed Emergency Room [facility] Thanh [facility] 05/08/14 7:22am Departed Emergency Room [facility] 05/04/14 11:11am Departed Emergency Room [facility] 04/27/14 11:11am Departed Emergency Room [facility] 04/23/14 9:41am Departed Emergency Room [facility] 04/07/14 12:34pm Recent Diagnosis
--- OUTSIDE RECORDS SUMMARY | 2017-01-06 01:48 | XMS REPORT | Continuity of Care Document ---
Author Author [facility] Organization [facility] Address Unknown Phone Unavailable Support Name Relationship Address Phone VICTORIANO STANLEY M.D. Caregiver [employer] [address] [place] [address] PINO FAULKNER Next Of Kin [address] [place] [address] CELL Insurance Providers Payer Name Policy Number Subscriber Name Relationship State [facility] [employer] [id number] Wong Garcia 01 Self / Same As Patient [facility] [id number] Aleksandar Garcia 02 Chief Complaint and Reason for Visit Chief Complaint Headache Reason for Visit Headache [id number] Problems Medical Problems Problem Onset Date Status [...] concussion syndrome Unknown Active Headache Unknown Active Medications Medication Dose Route Sig [...] DAY PRN SPASM 15 Qty 07/03/14 Discontinued Rhcrdfvges-Noakvitqlgtuc-Udvyj 1 Tab PO THREE TIMES A DAY For MIGRAINE 10 Qty 11/03/14 Active Aayfuyehtg-Ujgswfjwljpnc-Drejc 1 Tab PO Every 6 hours as needed For MIGRAINE 20 Qty 01/13/15 Active Amitriptyline Hcl 25 Mg PO BEDTIME For Headache 12 Qty 01/15/15 Active Promethazine Hcl 25 Mg PO Every 8 hours as needed For nausea 15 Qty 07/22 Active Ibuprofen 600 Mg PO Q6H PRN PAIN 15 Qty 01/15/15 Active Social History Social History Problem Response Recorded Date/Time Hx Alcohol Use No 12/22/2007 4:43pm Hx Substance Use No 09/30/2007 3:35pm Smoking Status Heavy Tobacco Smoker 01/15/2015 10:42am Query Response Start Date Stop Date Smoking Status Heavy Tobacco Smoker Hospital Discharge Instructions No hospital discharge instructions. Plan of Care Discharge Date 01/15/15 12:01pm Disposition 01 HOME, SELF-CARE Condition at Discharge Stable Instructions/Education Provided Concussion (ED) Acute Headache (ED) Prescriptions See Medications Section Referrals PANDA LU M.D. Additional Instructions/Education NO DRIVING UNTIL SEEN BY OR A NEUROLOGIST Dr. Solomon Waters MD [facility] [address], [address] [place], [place] [address] FAX:[phone] [facility] [address] , [address] [place] [address] Functional Status No functional status results. Allergies, Adverse Reactions, Alerts Allergen Type Severity Reaction Status Last Updated Codeine Adverse Reaction Unknown GI UPSET Active 01/13/15 Morphine Adverse Reaction Unknown Nausea/Vomiting Active 01/13/15 Tramadol Adverse Reaction Unknown SEIZURE Active 01/13/15 Quinolones Allergy Unknown SWELLING IN HANDS Active 01/13/15 Immunizations No immunization records. Vital Signs Acute Vital Signs Vital Response Date/Time Blood Pressure 120/66 mm Hg Blood Pressure Mean 84 mm Hg Temperature (Fahrenheit) 97.8 degrees F (96.0 - 99.9) Temperature (Calculated Celsius) 36.35105 degrees C Temperature Source Oral Pulse Pulse Rate: ED 98 bpm Respiratory Rate 18 breaths per minute [...] NONE SOURCE: URINE, CLEAN CATCH Urine Specific [place] September 28, 2014 12:00am >=1.030 1.005-1.030 SOURCE: [...] LIZ M.D. THER/PROPH/DIAG INJ SC/IM completed 09/03/14 DUARTE SAINZ M.D. THER/PROPH/DIAG INJ SC/IM completed [...] Encounters Encounter Location Date/Time Departed Emergency Room [facility] 01/15/15 10:42am Departed Emergency Room [facility] 01/13/15 1:49pm Departed Emergency Room [facility] 01/12/15 1:08am Departed Emergency Room [facility] E[facility] 01/03/15 8:41am Departed Emergency Room [facility] 12/01/14 10:41pm Departed Emergency Room [facility] 11/30/14 10:32am Departed Emergency Room [facility] Thanh [facility] 11/27/14 12:57pm Departed Emergency Room [facility] 11/26/14 4:07pm Departed Emergency Room [facility] 11/03/14 5:04pm Departed Emergency Room [facility] Thanh [facility] 10/16/14 12:09pm Departed Emergency Room [facility] 09/28/14 3:12pm Departed Emergency Room [facility] 09/26/14 8:40am Departed Emergency Room [facility] Thanh [facility] 09/22/14 12:44pm Departed Emergency Room [facility] 09/09/14 2:10am Departed Emergency Room [facility] 09/07/14 7:13pm Departed Emergency Room [facility] Thanh [facility] 09/07/14 2:25pm Departed Emergency Room [facility]h [facility] 09/03/14 2:13pm Departed Emergency Room [facility] 08/19/14 2:57am Departed Emergency Room [facility] 08/09/14 1:57pm Departed Emergency Room [facility] 07/30/14 8:44am Departed Emergency Room [facility] 07/28/14 7:19pm Departed Emergency Room [facility] 07/28/14 4:19pm Departed Emergency Room [facility] 07/26/14 3:57pm Departed Emergency Room [facility] 07/18/14 7:47am Departed Emergency Room [facility] 07/03/14 8:25am Departed Emergency Room [facility] 06/05/14 12:06pm Departed Emergency Room [facility] 05/16/14 11:13am Departed Emergency Room [facility] 05/11/14 8:24am Departed Emergency Room [facility] 05/08/14 7:22am Departed Emergency Room [facility] 05/04/14 11:11am Departed Emergency Room [facility] 04/27/14 11:11am Departed Emergency Room [facility] 04/23/14 9:41am Departed Emergency Room [facility] 04/07/14 12:34pm Departed Emergency Room [facility] 03/27/14 10:38am Departed Emergency Room [facility] 03/15/14 12:11pm Departed Emergency Room [facility] 03/02/14 10:49am Departed Emergency Room [facility] 01/16/14 8:33am Recent Diagnosis
--- OUTSIDE RECORDS SUMMARY | 2017-01-06 01:48 | XMS REPORT | Continuity of Care Document ---
Author Author [facility] Organization [facility] Address Unknown Phone Unavailable Support Name Relationship Address Phone VICTORIANO STANLEY M.D. Caregiver [employer] [address] [place], [place] [id number] PINO FAULKNER Next Of Kin [address] [place] [address] CELL Insurance Providers Payer Name Policy Number Subscriber Name Relationship Self Pay Insurance Wong Garcia 01 Self / Same As Patient Chief Complaint and Reason for Visit Chief Complaint Ear Pain Reason for Visit Otitis media acute Problems Medical Problems Problem Onset Date Status [...] sacroiliitis Unknown Active Bilateral sacroiliitis Unknown Active Medications [...] Mg PO TWICE A DAY 08/19/14 Active Amoxicillin 500 Mg PO THREE TIMES A DAY For otitis 10 Days 09/07/14 Active Social History Social History Problem Response Recorded Date/Time Hx Alcohol Use No 12/22/2007 4:43pm Hx Substance Use No 09/30/2007 3:35pm Smoking Status Heavy Tobacco Smoker 09/07/2014 7:17pm Query Response Start Date Stop Date Smoking Status Heavy Tobacco Smoker Hospital Discharge Instructions No hospital discharge instructions. Plan of Care Discharge Date 09/07/14 8:08pm Disposition 01 HOME, SELF-CARE Condition at Discharge Stable Instructions/Education Provided Otitis Media (ED) Prescriptions See Medications Section Referrals EMETERIO [...] Vital Signs Vital Response Date/Time Blood Pressure 125/85 mm Hg Blood Pressure Mean 98 mm Hg Temperature (Fahrenheit) 98.0 degrees F (96.0 - 99.9) Temperature (Calculated Celsius) 36.53071 degrees C Temperature Source Oral Pulse Pulse Rate: ED 105 bpm Respiratory Rate 20 breaths per minute [...] COMMENT: 01SOURCE: URINE, CLEAN CATCH Urine Specific [place] March 15, 2014 1:15pm 1.015 1.005-1.030 SOURCE [...] INJ SC/IM completed 09/03/14 DUARTE SAINZ M.D. DRAINAGE OF SKIN ABSCESS [...] Encounter Location Date/Time Departed Emergency Room [facility] 09/07/14 7:13pm Departed Emergency Room [facility] 09/07/14 2:25pm Departed Emergency Room [facility] 09/03/14 2:13pm Departed Emergency Room [facility] 08/19/14 2:57am Departed Emergency Room [facility] 08/09/14 1:57pm Departed Emergency Room [facility] 07/30/14 8:44am Departed Emergency Room [facility] 07/28/14 7:19pm Departed Emergency Room [facility] 07/28/14 4:19pm Departed Emergency Room [facility] 07/26/14 3:57pm Departed Emergency Room [facility] 07/18/14 7:47am Departed Emergency Room [facility] 07/03/14 8:25am Departed Emergency Room [facility] 06/05/14 12:06pm Departed Emergency Room [facility] 05/16/14 11:13am Departed Emergency Room [facility] 05/11/14 8:24am Departed Emergency Room [facility] 05/08/14 7:22am Departed Emergency Room [facility] 05/04/14 11:11am Departed Emergency Room [facility] 04/27/14 11:11am Departed Emergency Room [facility] 04/23/14 9:41am Departed Emergency Room [facility] 04/07/14 12:34pm Departed Emergency Room [facility] 03/27/14 10:38am Departed Emergency Room [facility] 03/15/14 12:11pm Departed Emergency Room [facility] 03/02/14 10:49am Departed Emergency Room [facility] 01/16/14 8:33am Departed Emergency Room Herminia Thanh [facility] 12/20/13 12:20pm Departed Emergency Room Brandon Thanh [facility] 12/08/13 12:38pm [facility] 12/01/13 5:06pm Departed Emergency Room [facility] 11/30/13 12:40pm [facility] 11/01/13 3:13pm [facility] 10/30/13 3:55pm Departed Emergency Room Brandon Thanh [facility] 10/08/13 9:00pm Departed Emergency Room Brandon Than[facility] 09/29/13 1:05pm [facility] 09/27/13 4:56pm [facility] 09/12/13 8:17am Recent Diagnosis Otitis media acute
--- OUTSIDE RECORDS SUMMARY | 2017-01-06 01:49 | XMS REPORT | Continuity of Care Document ---
Author Author [facility] Organization [facility] Address Unknown Phone Unavailable Support Name Relationship Address Phone VICTORIANO STANLEY M.D. Caregiver [employer] [address] [place] [address] PINO FAULKNER Next Of Kin [address] [place] [address] CELL Insurance Providers Payer Name Policy Number Subscriber Name Relationship [facility] [id number] Nicholas Garcia 02 Chief Complaint and Reason for Visit Chief Complaint Elbow Pain Reason for Visit [id number] Pain elbow Problems Medical Problems Problem Onset Date [...] Headache Unknown Active Ear pain Unknown Active Medications Medication Dose Route [...] DAY For otitis 10 Days 09/07/14 Active Azithromycin 250 Mg PO DAILY For BACTINF 4 Qty 09/09/14 Active Hydrocodone-Acetaminophen 1 Tab PO Every 6 hours as needed For Pain 8 Qty for pain 09/22/14 Active Social History Social History Problem Response Recorded Date/Time Hx Alcohol Use No 12/22/2007 4:43pm Hx Substance Use No 09/30/2007 3:35pm Smoking Status Heavy Tobacco Smoker 09/22/2014 12:46pm Query Response Start Date Stop Date Smoking Status Heavy Tobacco Smoker Hospital Discharge Instructions No hospital discharge instructions. Plan of Care Discharge Date 09/22/14 1:34pm Disposition 01 HOME, SELF-CARE Condition at Discharge Stable Instructions/Education Provided Contusions in Adults (ED) Elbow Sprain (ED) Prescriptions See Medications Section Referrals SHRUTHI PETERSON M.D. Additional Instructions/Education no fractures are seen ice and rest the arm see if not improving Functional Status No functional status results. Allergies, Adverse Reactions, Alerts Allergen Type Severity Reaction Status Last Updated Codeine Adverse Reaction Unknown GI UPSET Active 08/09/14 Morphine Adverse Reaction Unknown Nausea/Vomiting Active 08/09/14 Tramadol Adverse Reaction Unknown SEIZURE Active 08/09/14 Quinolones Allergy Unknown SWELLING IN HANDS Active 08/09/14 Immunizations No immunization records. Vital Signs Acute Vital Signs Vital Response Date/Time Blood Pressure 102/67 mm Hg Blood Pressure Mean 79 mm Hg Temperature (Fahrenheit) 97.9 degrees F (96.0 - 99.9) Temperature (Calculated Celsius) 36.26648 degrees C Temperature Source Oral Pulse Pulse Rate: ED 101 bpm Respiratory Rate 18 breaths per minute [...] COMMENT: 01SOURCE: URINE, CLEAN CATCH Urine Specific [place] March 15, 2014 1:15pm 1.015 1.005-1.030 SOURCE [...] INJ SC/IM completed 09/09/14 DUARTE SAINZ M.D. DRAINAGE OF SKIN ABSCESS completed 11/01/13 GEOVANNY,GUANACO Treviño M.D. Incision and drainage of soft tissue (procedure) completed 11/01/13 YASHALINI, GUANACO Treviño M.D. THER/PROPH/DIAG INJ SC/IM completed [...] Encounters Encounter Location Date/Time Departed Emergency Room [facility] 09/22/14 12:44pm Departed Emergency Room [facility] 09/09/14 2:10am Departed Emergency Room [facility] 09/07/14 7:13pm Departed Emergency Room [facility] 09/07/14 2:25pm Departed Emergency Room [facility] 09/03/14 2:13pm Departed Emergency Room [facility] 08/19/14 2:57am Departed Emergency Room [facility] 08/09/14 1:57pm Departed Emergency Room [facility] 07/30/14 8:44am Departed Emergency Room [facility] 07/28/14 7:19pm Departed Emergency Room [facility] 07/28/14 4:19pm Departed Emergency Room [facility] 07/26/14 3:57pm Departed Emergency Room [facility] 07/18/14 7:47am Departed Emergency Room [facility] 07/03/14 8:25am Departed Emergency Room [facility] 06/05/14 12:06pm Departed Emergency Room [facility] 05/16/14 11:13am Departed Emergency Room [facility] 05/11/14 8:24am Departed Emergency Room [facility] 05/08/14 7:22am Departed Emergency Room [facility] 05/04/14 11:11am Departed Emergency Room [facility] 04/27/14 11:11am Departed Emergency Room [facility] 04/23/14 9:41am Departed Emergency Room [facility] 04/07/14 12:34pm Departed Emergency Room [facility] 03/27/14 10:38am Departed Emergency Room [facility] 03/15/14 12:11pm Departed Emergency Room [facility] 03/02/14 10:49am Departed Emergency Room [facility] 01/16/14 8:33am Departed Emergency Room [facility] 12/20/13 12:20pm Departed Emergency Room [facility] 12/08/13 12:38pm Departed Emergency Room [facility] 12/01/13 5:06pm [facility]arted [facility] 11/30/13 12:40pm [facility] 11/01/13 3:13pm Departed [facility] 10/30/13 3:55pm Departed Emergency Room [facility] 10/08/13 9:00pm Departed Emergency Room [facility] 09/29/13 1:05pm Departed Emergency Room [facility] 09/27/13 4:56pm Recent Diagnosis
--- OUTSIDE RECORDS SUMMARY | 2017-01-06 01:49 | XMS REPORT | Continuity of Care Document ---
Author Author [facility] Organization [facility] Address Unknown Phone Unavailable Support Name Relationship Address Phone RAFA GARCIA M.D. Caregiver [employer] [address] [place] [address] PINO FAULKNER Next Of Kin [address] [place] [address] CE[employer] Insurance Providers Payer Name Policy Number [...] 09/30/2007 3:35pm Smoking Status Heavy Tobacco Smoker 05/16/2014 11:10am Query Response Start Date Stop Date Smoking Status Heavy Tobacco Smoker Hospital Discharge Instructions No hospital discharge instructions. Plan of Care Discharge Date 05/16/14 11:55am Disposition 01 HOME, SELF-CARE Condition at Discharge [...] Vital Signs Vital Response Date/Time Blood Pressure 125/74 mm Hg 05/16/2014 11:55am Blood Pressure Mean 91 mm Hg 05/16/2014 11:55am Pulse 05/16/2014 11:55am Pulse Rate: ED 98 bpm 05/16/2014 11:55am Respiratory Rate 16 breaths per minute (10 - 20) 05/16/2014 11:55am Results No known relevant diagnostic tests, laboratory [...] Treviño M.D. THER/PROPH/DIAG INJ SC/IM completed 11/30/13 STANLEYVICTORIANO M.D. THER/PROPH/DIAG INJ SC/IM completed 11/30/13 LIZETH,VICTORIANO [...] THER/PROPH/DIAG INJ SC/IM completed 05/08/14 VICTORIANO STANLEY M.D./ADILSON/MERISSA INJ SC/IM completed 05/11/14 SHILA TIDWELL D.O. Encounters Encounter Location Date/[facility]16[facility]14 11:[facility] 05/11/14 8:24am Departed Emergency Room [facility] 05/08/14 7:22am Departed Emergency Room [facility] 05/04/14 11:11am Departed Emergency Room [facility] 04/27/14 11:11am Departed Emergency Room [facility] 04/23/14 9:41am Departed Emergency Room [facility] 04/07/14 12:34pm Departed Emergency Room [facility] 03/27/14 10:38am Departed Emergency Room [facility] 03/15/14 12:11pm Departed Emergency Room [facility] 03/02/14 10:49am Departed Emergency Room [facility] 01/16/14 8:33am Departed Emergency Room [facility] 12/20/13 12:20pm Departed Emergency Room [facility] 12/08/13 12:38pm Departed Emergency Room [facility] 12/01/13 5:06pm Departed Emergency Room [facility] 11/30/13 12:40pm Departed Emergency Room [facility] 11/01/13 3:13pm Departed Emergency Room [facility] 10/30/13 3:55pm Departed Emergency Room [facility] 10/08/13 9:00pm Departed Emergency Room [facility] 09/29/13 1:05pm Departed Emergency Room [facility] 09/27/13 4:56pm Departed Emergency Room [facility] 09/12/13 8:17am Departed Emergency Room [facility] 08/24/13 10:10am Departed Emergency Room [facility] 08/04/13 5:24pm Departed Emergency Room [facility] 08/02/13 1:19pm Departed Emergency Room [facility] 08/01/13 12:56pm Departed Emergency Room [facility] 07/06/13 7:59am Departed Emergency Room [facility] 06/29/13 6:55pm Departed Emergency Room [facility] 06/18/13 9:18am Departed Emergency Room [facility] 06/16/13 4:13am Departed Emergency Room [facility] 06/06/13 1:44pm Recent Diagnosis
--- OUTSIDE RECORDS SUMMARY | 2017-01-06 01:49 | XMS REPORT | Continuity of Care Document ---
Author Author [facility] Organization [facility] Address Unknown Phone Unavailable Support Name Relationship Address Phone DUARTE SAINZ M.D. Caregiver [employer] [address] [place] [address] PINO FAULKNER Next Of Kin [address] [place] [address] CE[employer] Insurance Providers Payer Name Policy Number Subscriber Name Relationship [facility] [id number] Nicholas Garcia 02 Chief Complaint and Reason for Visit Chief Complaint Flank Pain Reason for Visit Low back pain Problems Medical Problems Problem Onset Date Status [...] Unknown Active Low back pain Unknown Active Medications Medication Dose Route [...] DAY PRN SPASM 12 Qty 09/26/14 Active Social History Social History Problem Response Recorded Date/Time Hx Alcohol Use No 12/22/2007 4:43pm Hx Substance Use No 09/30/2007 3:35pm Smoking Status Heavy Tobacco Smoker 09/26/2014 8:41am Query Response Start Date Stop Date Smoking Status Heavy Tobacco Smoker Hospital Discharge Instructions No hospital discharge instructions. Plan of Care Discharge Date 09/26/14 10:02am Disposition 01 HOME, SELF-CARE Condition at Discharge Stable Instructions/Education Provided Acute Low Back Pain (ED) Prescriptions See Medications Section Additional Instructions/Education No signs of a UTI or evidence to suggest a kidney stone was noted on your testing today. Your symptoms appear to be related to the muscles of the lower back. Continue with Ibuprofen up to 800mg 3x/day as needed for pain and Soma or heating pad for muscle spasms. Return to the ER if with worsening pain, persistent vomiting, high fever or development of abdominal pain. Functional Status No functional status results. Allergies, Adverse Reactions, Alerts Allergen Type Severity Reaction Status Last Updated Codeine Adverse Reaction Unknown GI UPSET Active 08/09/14 Morphine Adverse Reaction Unknown Nausea/Vomiting Active 08/09/14 Tramadol Adverse Reaction Unknown SEIZURE Active 08/09/14 Quinolones Allergy Unknown SWELLING IN HANDS Active 08/09/14 Immunizations No immunization records. Vital Signs Acute Vital Signs Vital Response Date/Time Blood Pressure 116/57 mm Hg Blood Pressure Mean 76 mm Hg Temperature (Fahrenheit) 97.9 degrees F (96.0 - 99.9) Temperature (Calculated Celsius) 36.77022 degrees C Temperature Source Oral Pulse Pulse Rate: ED 85 bpm Respiratory Rate 16 breaths per minute [...] 15, 2014 12:40pm 26 mEq/L N 22-34 Chlamydia trachomatis DNA (PCR) March 15, 2014 1:15pm Not detected NOT DETECTE Chloride Level March 15, 2014 12:40pm 103 mEq/L N 98-116 Cocaine Screen February 14, 2011 11:33am Negative NEGATIVE ROOM/COMMENTS 05 Creatine Kinase MB April 06, 2010 11:30pm 4.9 ng/mL N 0.0-6.0 ROOM/ COMMENTS 03 Creatine Kinase MB Relative Index April 06, 2010 11:30pm Not Performed 0.0-2.2 Creatinine March 15, 2014 12:40pm 0.72 mg/dL L 0.9-1.6 D-Dimer Quantitative (PE/DVT) June [...] 15, 2014 12:40pm 3.2 gm/dL H 2.0-3.0 Glomerular Filtration Rate Calc March 15, 2014 12:40pm > 60.00 mL/min MULTIPLY RESULT BY 1.210 IF THE PATIENT IS -AMERICANUnits are mL/min/ 1.73 m2 > 60 Normal kidney function 30-59 Moderately decreased kidney function 15-29 Severely decreased kidney function <15 End-stage kidney failure Hematocrit May 24, 2014 8:53am 41.3 % N 38.0-47.0 Hemoglobin May 24, 2014 8:53am 13.6 g/dL N 12.0-16.0 Human Chorionic Gonadotropin, Qual March 15, 2014 1:15pm Negative NEGATIVE Immature Blood Cells October 07, 2012 4:29pm 0.1 K/uL N 0-0.4 COMMENT: 10 Immature Granulocyte # (Auto) May 24, 2014 8:53am 0.02 K/uL N 0- 0.40 Immature Granulocyte % (Auto) May 24, 2014 8:53am 0.2 % N 0-0.5 Lipase March 15, 2014 12:40pm 29 U/L [...] 2013 1:20pm Positive NEGATIVE Urine Appearance September 26, 2014 9:30am Clear SOURCE: URINE, CLEAN CATCH Urine Bacteria April 07, 2012 2:10pm Trace /hpf H NONE COMMENT: 01SOURCE: URINE, CLEAN CATCH Urine Barbiturates February 14, 2011 11:33am Negative NEGATIVE ROOM/ COMMENTS 05 Urine Barbiturates Screen September 29, 2013 1:20pm Negative NEGATIVE Urine Benzodiazepines Screen September 29, 2013 1:20pm Positive NEGATIVE Urine Bilirubin September 26, 2014 9:30am Negative NEGATIVE SOURCE: URINE, CLEAN CATCH Urine Cannabinoids February 14, 2011 11:33am Negative NEGATIVE ROOM/ COMMENTS 05 Urine Casts December 17, 2010 11:45pm None /lpf NONE ROOM/COMMENTS 10Lab to draw N If applicable:TELEPHONE/VERBAL order by (other than ) Latoya SOURCE: URINE, CLEAN CATCH Urine Cocaine Screen September 29, 2013 1:20pm Negative NEGATIVE Urine Color September 26, 2014 9:30am Yellow SOURCE: URINE, CLEAN CATCH Urine Crystals December 17, 2010 11:45pm None /hpf NONE ROOM/COMMENTS 10Lab to draw N If applicable:TELEPHONE/VERBAL order by (other than ) Latoya SOURCE: URINE, CLEAN CATCH Urine Epithelial Cells April 07, 2012 2:10pm Many /lpf COMMENT: 01SOURCE: URINE, CLEAN CATCH Urine Glucose (UA) September 26, 2014 9:30am Negative NEGATIVE SOURCE: URINE, CLEAN CATCH Urine Human Chorionic Gonadotropin September 26, 2014 9:30am Negative NEGATIVE Urine Ketones September 26, 2014 9:30am Negative NEGATIVE SOURCE: URINE , CLEAN CATCH Urine Leukocyte Esterase September 26, 2014 9:30am Negative NEGATIVE SOURCE: URINE, CLEAN CATCH Urine Methadone Screen September 29, 2013 1:20pm Negative NEGATIVE Urine Methamphetamines Screen September 29, 2013 1:20pm Positive NEGATIVE Urine Mucus December 17, 2010 11:45pm None /lpf NONE ROOM/COMMENTS 10Lab to draw N If applicable:TELEPHONE/VERBAL order by (other than ) Latoya SOURCE: URINE, CLEAN CATCH Urine Nitrate September 26, 2014 9:30am Negative NEGATIVE SOURCE: URINE , CLEAN CATCH Urine Occult Blood September 26, 2014 9:30am Negative NEGATIVE SOURCE: URINE, CLEAN CATCH Urine Opiates Screen September 29, 2013 1:20pm Positive NEGATIVE Urine Other December 17, 2010 11:45pm N ROOM/COMMENTS 10Lab to draw N If applicable:TELEPHONE/VERBAL order by (other than ) Latoya SOURCE: URINE, CLEAN CATCH Urine Phencyclidine Screen September 29, 2013 1:20pm Negative NEGATIVE Urine Propoxyphene Screen September 29, 2013 1:20pm Positive NEGATIVE Urine Protein September 26, 2014 9:30am Negative NEGATIVE SOURCE: URINE , CLEAN CATCH Urine RBC April 07, 2012 2:10pm None /hpf NONE COMMENT: SOURCE: URINE, CLEAN CATCH Urine Specific [place] September 26, 2014 9:30am >=1.030 1.005-1.030 SOURCE: URINE, CLEAN CATCH Urine Urobilinogen September 26, 2014 9:30am 0.2 E.U./dL 0.2-1.0 SOURCE : URINE, CLEAN CATCH Urine WBC April 07, 2012 2:10pm 0-1 /hpf NONE COMMENT: 01SOURCE: URINE, CLEAN CATCH Urine WBC Clumps December 17, 2010 11:45pm None /hpf NONE ROOM/COMMENTS 10Lab to draw N If applicable:TELEPHONE/VERBAL order by (other than ) Latoya SOURCE: URINE, CLEAN CATCH Urine pH September 26, 2014 9:30am 5.5 4.5-8.0 SOURCE: URINE, CLEAN CATCH White Blood [...] Encounters Encounter Location Date/Time Departed Emergency Room [facility] 09/26/14 8:40am Departed Emergency Room [facility] 09/22/14 12:44pm Departed Emergency Room [facility] 09/09/14 2:10am Departed Emergency Room [facility] 09/07/14 7:13pm Departed Emergency Room [facility] 09/07/14 2:25pm Departed Emergency Room [facility] 09/03/14 2:13pm Departed Emergency Room [facility] 08/19/14 2:57am Departed Emergency Room [facility] 08/09/14 1:57pm Departed Emergency Room [facility] 07/30/14 8:44am Departed Emergency Room [facility] 07/28/14 7:19pm Departed Emergency Room [facility] 07/28/14 4:19pm Departed Emergency Room [facility] 07/26/14 3:57pm Departed Emergency Room [facility] 07/18/14 7:47am Departed Emergency Room [facility] 07/03/14 8:25am Departed Emergency Room [facility] 06/05/14 12:06pm Departed Emergency Room [facility] 05/16/14 11:13am Departed Emergency Room [facility] 05/11/14 8:24am Departed Emergency Room [facility] 05/08/14 7:22am Departed Emergency Room [facility] 05/04/14 11:11am Departed Emergency Room [facility] 04/27/14 11:11am Departed Emergency Room [facility] 04/23/14 9:41am Departed Emergency Room [facility] 04/07/14 12:34pm Departed Emergency Room [facility] 03/27/14 10:38am Departed Emergency Room [facility] 03/15/14 12:11pm Departed Emergency Room [facility] 03/02/14 10:49am Departed Emergency Room [facility] 01/16/14 8:33am Departed Emergency Room [facility] 12/20/13 12:20pm Departed Emergency Room [facility] 12/08/13 12:38pm Departed Emergency Room [facility] 12/01/13 5:06pm Departed Emergency Room [facility] 11/30/13 12:40pm Departed Emergency Room [facility] 11/01/13 3:13pm [facility]/30/13 3:55pm Dep[facility] Room [facility] 10/08/13 9:00pm Departed Emergency Room [facility] 09/29/13 1:05pm Departed Emergency Room [facility] 09/27/13 4:56pm Recent Diagnosis
--- OUTSIDE RECORDS SUMMARY | 2017-01-06 01:49 | XMS REPORT | Continuity of Care Document ---
Author Author [facility] Organization [facility] Address Unknown Phone Unavailable Support Name Relationship Address Phone VICTORIANO STANLEY M.D. Caregiver [employer] [address] [place] [address] PINO FAULKNER Next Of Kin [address] [place] [address] CELL Insurance Providers Payer Name Policy Number Subscriber Name Relationship [facility]-Other [id number] Aleksandar Garcia 02 Chief Complaint and Reason [...] Mg PO TWICE A DAY 08/19/14 Active Pfjafrhsdg-Kpwaqbjttmwon-Syxki 1 Tab PO THREE TIMES A DAY For MIGRAINE 10 Qty 11/03/14 Active Promethazine Hcl 25 Mg PO Q4H PRN NAUSEA 15 Qty 11/03/14 Active Social History Social History Problem Response Recorded Date/Time Hx Alcohol Use No 12/22/2007 4:43pm Hx Substance Use No 09/30/2007 3:35pm Smoking Status Heavy Tobacco Smoker 11/03/2014 5:09pm Query Response Start Date Stop Date Smoking Status Heavy Tobacco Smoker Hospital Discharge Instructions No hospital discharge instructions. Plan of Care Discharge Date 11/03/14 6:07pm Disposition 01 HOME, SELF-CARE Condition at Discharge Stable Instructions/Education Provided Acute Headache (ED) Prescriptions See Medications Section Additional Instructions/Education Use Phenergan as needed for nausea. Use Ibuprofen up to 800mg 3x/day as needed for pain. Use Fioricet for migraine headache. Establish care with local doctor. Functional Status No functional status results. Allergies, Adverse Reactions, Alerts Allergen Type Severity Reaction Status Last Updated Codeine Adverse Reaction Unknown GI UPSET Active 08/09/14 Morphine Adverse Reaction Unknown Nausea/Vomiting Active 08/09/14 Tramadol Adverse Reaction Unknown SEIZURE Active 08/09/14 Quinolones Allergy Unknown SWELLING IN HANDS Active 12/03/14 Immunizations No immunization records. Vital Signs Acute Vital Signs Vital Response Date/Time Blood Pressure 134/89 mm Hg Blood Pressure Mean 104 mm Hg Temperature (Fahrenheit) 98.6 degrees F (96.0 - 99.9) Temperature (Calculated Celsius) 37.63219 degrees C Temperature Source Oral Pulse Pulse Rate: ED 76 bpm Respiratory Rate 18 breaths per minute [...] If applicable:TELEPHONE/VERBAL order by (other than ) Laotya SOURCE: URINE, CLEAN CATCH Urine Cocaine Screen [...] NONE SOURCE: URINE, CLEAN CATCH Urine Specific [place] September 28, 2014 12:00am >=1.030 1.005-1.030 SOURCE: [...] SC/IM completed 09/26/14 ALISTAIR,DUARTE Khan THER/PROPH/DIAG INJ IV PUSH completed 09/28/14 RAFA GARCIA M.D. TX/PRO/DX INJ NEW DRUG ADDON completed 09/28/14 RAFA GARCIA M.D. TX/PRO/DX INJ NEW DRUG ADDON completed 09/28/14 RAFA GARCIA M.D. THER/PROPH/DIAG INJ SC/IM completed 11/30/13 VICTORIANO STANLEY M.D. THER/PROPH/DIAG INJ SC/IM completed 11/30/13 VICTORIANO STANLEY M.D. THER/PROPH/DIAG INJ SC/IM completed 11/30/13 VICTORIANO STANLEY M.D. THER/PROPH/DIAG INJ SC/IM completed 12/01/13 YASHALINI,GUANACO Treviño M.D. THER/PROPH/DIAG INJ SC/IM completed 12/01/13 YABUT,GUANACO Treviño M.D. THER/PROPH/DIAG INJ SC/IM completed 12/01/13 YASHALINI,GUANACO Treviño M.D. THER/PROPH/DIAG INJ IV PUSH completed 03/15/14 ALISTAIR,DUARTE Khan TX/PRO/DX INJ NEW [...] Location Date/Time Departed Emergency Room [facility] 11/03/14 5:04pm Departed Emergency Room [facility] 10/16/14 12:09pm Departed Emergency Room [facility] 09/28/14 3:12pm Departed Emergency Room [facility] 09/26/14 8:40am Departed Emergency Room [facility] 09/22/14 12:44pm Departed Emergency Room [facility] 09/09/14 2:10am Departed Emergency Room [facility] 09/07/14 7:13pm Departed Emergency Room [facility] 09/07/14 2:25pm Departed Emergency Room [facility] 09/03/14 2:13pm Departed Emergency Room [facility] 08/19/14 2:57am Departed Emergency Room [facility] 08/09/14 1:57pm Departed Emergency Room [facility] 07/30/14 8:44am Departed Emergency Room [facility] 07/28/14 7:19pm Departed Emergency Room [facility] BJosh E[facility] 07/28/14 4:19pm Departed Emergency Room [facility] 07/26/14 3:57pm Departed Emergency Room [facility] 07/18/14 7:47am Departed Emergency Room [facility] 07/03/14 8:25am Departed Emergency Room [facility] 06/05/14 12:06pm Departed Emergency Room [facility] 05/16/14 11:13am Departed Emergency Room [facility] 05/11/14 8:24am Departed Emergency Room [facility] 05/08/14 7:22am Departed Emergency Room [facility] 05/04/14 11:11am Departed Emergency Room [facility] 04/27/14 11:11am Departed Emergency Room [facility] 04/23/14 9:41am Departed Emergency Room [facility] Thanh [facility] 04/07/14 12:34pm Departed Emergency Room [facility] Thanh [facility] 03/27/14 10:38am Departed Emergency Room [facility] 03/15/14 12:11pm Departed Emergency Room [facility] 03/02/14 10:49am Departed Emergency Room [facility] 01/16/14 8:33am Departed Emergency Room [facility] BJosh E[facility] 12/20/13 12:20pm Departed Emergency Room [facility] BJosh Co[facility] 12/08/13 12:38pm Departed Emergency Room [facility] 12/01/13 5:06pm Departed Emergency Room [facility] 11/30/13 12:40pm Recent Diagnosis
--- OUTSIDE RECORDS SUMMARY | 2017-01-06 01:50 | XMS REPORT | Continuity of Care Document ---
Author Author [facility] Organization [facility] Address Unknown Phone Unavailable Support Name Relationship Address Phone RAFA GARCIA M.D. Caregiver [employer] [address] [place] [address] PINO FAULKNER Next Of Kin [address] [place] [address] CELL Insurance Providers Payer Name Policy Number Subscriber Name Relationship [facility]-Other [id number] Aleksandar Garcia 02 Chief Complaint and Reason for Visit Chief Complaint Back Pain Reason for Visit Low back strain Problems Medical Problems Problem Onset Date Status [...] Mg PO TWICE A DAY 08/19/14 Active Osbhgqjagf-Llnkuhvwygmqw-Hcmdd 1 Tab PO THREE TIMES A DAY For MIGRAINE 10 Qty 11/03/14 Active Diclofenac Sodium 75 Mg PO Every 12 hours as needed PRN PAIN 20 Qty Active Methocarbamol 1,000 Mg PO Every 8 hours as needed For MUSCLE SPASM 15 Qty 11/27/14 Active Social History Social History Problem Response Recorded Date/Time Hx Alcohol Use No 12/22/2007 4:43pm Hx Substance Use No 09/30/2007 3:35pm Smoking Status Heavy Tobacco Smoker 11/27/2014 12:58pm Query Response Start Date Stop Date Smoking Status Heavy Tobacco Smoker Hospital Discharge Instructions No hospital discharge instructions. Plan of Care Discharge Date 11/27/14 1:51pm Disposition 01 HOME, SELF-CARE Condition at Discharge Stable Instructions/Education Provided Acute Low Back Pain (ED) Prescriptions See Medications Section Additional Instructions/Education 1. Followup with your doctor in 2-3 days. 2. Use prescribed anti-inflammatories last pain medication and muscle relaxant as needed. 3. Rest. Functional Status No functional status results. Allergies, Adverse Reactions, Alerts Allergen Type Severity Reaction Status Last Updated Codeine Adverse Reaction Unknown GI UPSET Active 08/09/14 Morphine Adverse Reaction Unknown Nausea/Vomiting Active 08/09/14 Tramadol Adverse Reaction Unknown SEIZURE Active 08/09/14 Quinolones Allergy Unknown SWELLING IN HANDS Active 08/09/14 Immunizations No immunization records. Vital Signs Acute Vital Signs Vital Response Date/Time Blood Pressure 124/93 mm Hg Blood Pressure Mean 103 mm Hg Temperature (Fahrenheit) 97.8 degrees F (96.0 - 99.9) Temperature (Calculated Celsius) 36.87382 degrees C Temperature Source Oral Pulse Pulse Rate: ED 111 bpm Respiratory Rate 16 breaths per minute [...] NONE SOURCE: URINE, CLEAN CATCH Urine Specific [place] September 28, 2014 12:00am >=1.030 1.005-1.030 SOURCE: [...] SAINZ M.D. THER/PROPH/DIAG INJ SC/IM completed 07/03/14 ALISTAIR,DUARTE [...] Encounters Encounter Location Date/Time Departed Emergency Room [facility] 11/27/14 12:57pm Departed Emergency Room [facility] 11/26/14 4:07pm Departed Emergency Room [facility] 11/03/14 5:04pm Departed Emergency Room [facility] 10/16/14 12:09pm Departed Emergency Room [facility] 09/28/14 3:12pm Departed Emergency Room [facility] 09/26/14 8:40am Departed Emergency Room [facility] BJosh Eros [facility] 09/22/14 12:44pm Departed Emergency Room [facility] 09/09/14 2:10am Departed Emergency Room [facility] 09/07/14 7:13pm Departed Emergency Room [facility] 09/07/14 2:25pm Departed Emergency Room Herm[facility] BJosh Eros [facility] 09/03/14 2:13pm Departed Emergency Room [facility]inia [facility] 08/19/14 2:57am Departed Emergency Room [facility] 08/09/14 1:57pm Departed Emergency Room [facility]inia [facility] 07/30/14 8:44am Departed Emergency Room [facility] 07/28/14 7:19pm Departed Emergency Room [facility] 07/28/14 4:19pm Departed Emergency Room [facility] 07/26/14 3:57pm Departed Emergency Room [facility]inia B. [facility] 07/18/14 7:47am Departed Emergency Room [facility] 07/03/14 8:25am Departed Emergency Room [facility] B[facility] 06/05/14 12:06pm Departed Emergency Room [facility] 05/16/14 11:13am Departed Emergency Room [facility] Thanh Eros [facility] 05/11/14 8:24am Departed Emergency Room [facility] BJosh Eros [facility] 05/08/14 7:22am Departed Emergency Room [facility]inia [facility] 05/04/14 11:11am Departed Emergency Room Herminia YuJosh [facility] 04/27/14 11:11am Departed Emergency Room [facility]inia [facility] 04/23/14 9:41am Departed Emergency Room [facility]inia B. [facility] 04/07/14 12:34pm Departed Emergency Room Herminia Josh [facility] 03/27/14 10:38am [facility] 12:11[facility] Dep[facility] Emergency Room [facility] 03/02/14 10:49am Departed Emergency Room [facility] 01/16/14 8:33am Departed Emergency Room [facility] 12/20/13 12:20pm Departed Emergency Room [facility] 12/08/13 12:38pm Departed Emergency Room [facility] 12/01/13 5:06pm Departed Emergency Room [facility] 11/30/13 12:40pm Recent Diagnosis
--- OUTSIDE RECORDS SUMMARY | 2017-01-06 01:50 | XMS REPORT | Continuity of Care Document ---
Author Author [facility] Organization [facility] Address Unknown Phone Unavailable Support Name Relationship Address Phone DUARTE SAINZ M.D. Caregiver [employer] [address] [place] [address] PINO FAULKNER Next Of Kin [address] [place] [address] CELL Insurance Providers Payer Name Policy Number Subscriber Name Relationship Self Pay Insurance Wong Garcia 01 Self / Same As Patient Chief Complaint and Reason for Visit Chief Complaint Ear Pain Reason for Visit Ear pain Headache Problems Medical Problems Problem Onset Date [...] Ear pain Unknown Active Headache Unknown Active Medications Medication [...] DAILY For BACTINF 4 Qty 09/09/14 Active Social History Social History Problem Response Recorded Date/Time Hx Alcohol Use No 12/22/2007 4:43pm Hx Substance Use No 09/30/2007 3:35pm Smoking Status Heavy Tobacco Smoker 09/09/2014 2:10am Query Response Start Date Stop Date Smoking Status Heavy Tobacco Smoker Hospital Discharge Instructions No hospital discharge instructions. Plan of Care Discharge Date 09/09/14 3:07am Disposition 01 HOME, SELF-CARE Condition at Discharge Stable Instructions/Education Provided Acute Headache (ED) Earache (ED) Prescriptions See Medications Section Referrals LINDA MENDOZA MD Additional Instructions/Education Stop Amoxicillin and finish course of Zithromax. Use Ibuprofen up to 800mg 3x/day as needed for pain. Use OTC decongestants to help with sinus pain and congestion. Follow up with Dr. Mendoza should you continue to have ear pain. Functional Status No functional status results. Allergies, Adverse Reactions, Alerts Allergen Type Severity Reaction Status Last Updated Codeine Adverse Reaction Unknown GI UPSET Active 08/09/14 Morphine Adverse Reaction Unknown Nausea/Vomiting Active 08/09/14 Tramadol Adverse Reaction Unknown SEIZURE Active 08/09/14 Quinolones Allergy Unknown SWELLING IN HANDS Active 08/09/14 Immunizations No immunization records. Vital Signs Acute Vital Signs Vital Response Date/Time Blood Pressure 141/93 mm Hg Blood Pressure Mean 109 mm Hg Temperature (Fahrenheit) 97.9 degrees F (96.0 - 99.9) Temperature (Calculated Celsius) 36.93053 degrees C Temperature Source Oral Pulse Pulse Rate: ED 95 bpm Respiratory Rate 20 breaths per minute [...] COMMENT: 01SOURCE: URINE, CLEAN CATCH Urine Specific [place] March 15, 2014 1:15pm 1.015 1.005-1.030 SOURCE [...] M.D. THER/PROPH/DIAG INJ SC/IM completed 04/07/14 VICTORIANO STANLYE M.D. THER/PROPH/DIAG INJ SC/IM completed 04/07/14 VICTORIANO STANLEY M.D. THER/PROPH/DIAG INJ SC/IM completed 05/08/14 VICTORIANO STANLEY M.D. THER/PROPH/DIAG INJ SC/IM completed 05/08/14 VICTORIANO STANLEY M.D. THER/PROPH/DIAG INJ SC/IM completed 05/08/14 VICTORIANO STANLEY M.D. THER/PROPH/DIAG INJ SC/IM completed 05/11/14 SHILA TIDWELL D.O. THER/PROPH/DIAG INJ SC/IM completed 05/16/14 RAFA GARCIA M.D. Encounters Encounter Location Date/Time Departed Emergency Room [facility] 09/09/14 2:10am Departed Emergency Room [facility] 09/07/14 7:13pm Departed Emergency Room [facility] 09/07/14 2:25pm Departed Emergency Room [facility] 09/03/14 2:13pm Departed Emergency Room [facility] 08/19/14 2:57am Departed Emergency Room [facility] 08/09/14 1:57pm Departed Emergency Room [facility] 07/30/14 8:44am Departed Emergency Room [facility] 07/28/14 7:19pm Departed Emergency Room [facility] 07/28/14 4:19pm Departed Emergency Room [facility] 07/26/14 3:57pm Departed Emergency Room [facility] 07/18/14 7:47am Departed Emergency Room [facility] 07/03/14 8:25am Departed Emergency Room [facility] 06/05/14 12:06pm Departed Emergency Room [facility] 05/16/14 11:13am Departed Emergency Room [facility] 05/11/14 8:24am Departed Emergency Room [facility] BJosh Eros [facility] 05/08/14 7:22am Departed Emergency Room [facility] BJosh Eros [facility] 05/04/14 11:11am Departed Emergency Room [facility] Co[facility] 04/27/14 11:11am Departed Emergency Room [facility] BJosh Eros [facility] 04/23/14 9:41am Departed Emergency Room [facility] Co[facility] 04/07/14 12:34pm Departed Emergency Room [facility] B[facility] 03/27/14 10:38am Departed Emergency Room [facility] 03/15/14 12:11pm Departed Emergency Room [facility] 03/02/14 10:49am Departed Emergency Room [facility] 01/16/14 8:33am [facility] 12/20/13 12:20pm Departed Emergency Room [facility] YuJosh [facility] 12/08/13 12:38pm Departed Emergency Room [facility] 12/01/13 5:06pm [facility] 11/30/13 12:40pm [facility] 11/01/13 3:13pm Departed Emergency Room [facility] 10/30/13 3:55pm Departed Emergency Room [facility] Yu[facility] 10/08/13 9:00pm Departed Emergency Room [facility] Thanh [facility] 09/29/13 1:05pm [facility] 09/27/13 4:56pm Departed Emergency Room [facility] 09/12/13 8:17am Recent Diagnosis
--- OUTSIDE RECORDS SUMMARY | 2017-01-06 01:50 | XMS REPORT | Continuity of Care Document ---
Author Author [facility] Organization [facility] Address Unknown Phone Unavailable Support Name Relationship Address Phone DUARTE SAINZ M.D. Caregiver [employer] [address] [place] [address] PINO FAULKNER Next Of Kin [address] [place] [address] CELL Insurance Providers Payer Name Policy Number Subscriber Name Relationship Self Pay Insurance Wong Garcia 01 Self / Same As Patient Chief Complaint and Reason for Visit Chief Complaint Neck Injury Reason for Visit Headache [id number] Problems Medical Problems Problem Onset Date Status [...] Torticollis, acute Unknown Active Cervicalgia Unknown Active Medications Medication Dose Route Sig [...] 1 Tab PO THREE TIMES A DAY 15 Qty 07/03/14 Discontinued Carisoprodol 350 Mg PO THREE TIMES A DAY 15 Qty 07/03/14 Active Social History Social History Problem Response Recorded Date/Time Hx Alcohol Use No 12/22/2007 4:43pm Hx Substance Use No 09/30/2007 3:35pm Smoking Status Heavy Tobacco Smoker 07/03/2014 8:25am Query Response Start Date Stop Date Smoking Status Heavy Tobacco Smoker Hospital Discharge Instructions No hospital discharge instructions. Plan of Care Discharge Date 07/03/14 9:29am Disposition 01 HOME, SELF-CARE Condition at Discharge Stable Instructions/Education Provided Spasmodic Torticollis (ED) Acute Headache (ED) Prescriptions See Medications [...] Vital Signs Vital Response Date/Time Blood Pressure 126/75 mm Hg Blood Pressure Mean 92 mm Hg Temperature (Fahrenheit) 98.4 degrees F (96.0 - 99.9) Temperature (Calculated Celsius) 36.30281 degrees C Temperature Source Oral Pulse Pulse Rate: ED 81 bpm Respiratory Rate 18 breaths per minute [...] COMMENT: 01SOURCE: URINE, CLEAN CATCH Urine Specific [place] March 15, 2014 1:15pm 1.015 1.005-1.030 SOURCE [...] RAFA GARCIA M.D. THER/PROPH/DIAG INJ SC/IM completed 08/02/13 LILA [...] M.D. THER/PROPH/DIAG INJ SC/IM completed 12/01/13 GUANACO SMALL.D. THER/PROPH/DIAG INJ SC/IM completed 12/01/13 YABUT,GUANACO Treviño M.D. THER/PROPH/DIAG INJ SC/IM completed 12/01/13 YABUT,GUANACO Treviño M.D. THER/PROPH/DIAG INJ IV PUSH completed 03/15/14 DUARTE SAINZ M.D. TX/PRO/DX INJ NEW DRUG ADDON completed 03/15/14 DUARTE SAINZ M.D. TX/PRO/DX INJ NEW DRUG ADDON completed 03/15/14 DUARTE SAINZ M.D. Gynecologic examination (procedure) completed 03/15/14 DUARET SAINZ M.D. THER/PROPH/DIAG INJ SC/IM completed 03/27/14 [...] Encounters Encounter Location Date/Time Departed Emergency Room [facility] 07/03/14 8:25am Departed Emergency Room [facility] 06/05/14 12:06pm Departed Emergency Room [facility] 05/16/14 11:13am Departed Emergency Room [facility] 05/11/14 8:24am Departed Emergency Room [facility] 05/08/14 7:22am Departed Emergency Room [facility] 05/04/14 11:11am Departed Emergency Room [facility] Co[facility] 04/27/14 11:11am Departed Emergency Room [facility] Co[facility] 04/23/14 9:41am Departed Emergency Room Herminia BJosh Eros [facility] 04/07/14 12:34pm Departed Emergency Room [facility] BJosh Eros [facility] 03/27/14 10:38am Departed Emergency Room [facility] BJosh Eros [facility] 03/15/14 12:11pm Departed Emergency Room [facility] 03/02/14 10:49am Departed Emergency Room [facility] BJosh [facility] 01/16/14 8:33am Departed Emergency Room [facility] BJosh [facility] 12/20/13 12:20pm Departed Emergency Room [facility] YuJosh [facility] 12/08/13 12:38pm Departed Emergency Room [facility] YuJosh [facility] 12/01/13 5:06pm Departed Emergency Room [facility] 11/30/13 12:40pm Departed Emergency Room [facility]inia Josh [facility] 11/01/13 3:13pm Departed Emergency Room Herm[facility] Thanh [facility] 10/30/13 3:55pm Departed Emergency Room [facility] BJosh [facility] 10/08/13 9:00pm Departed Emergency Room [facility] YuJosh [facility] 09/29/13 1:05pm Departed Emergency Room [facility] B[facility] 09/27/13 4:56pm Departed Emergency Room [facility] B[facility] 09/12/13 8:17am [facility] 08/24/13 10:10am [facility] 08/04/13 5:24pm [facility] 08/02/13 1:19pm [facility] 08/01/13 12:56pm [facility] 07/06/13 7:59am Recent Diagnosis Headache
--- OUTSIDE RECORDS SUMMARY | 2017-01-06 01:51 | XMS REPORT | Continuity of Care Document ---
Author Author [facility] Organization [facility] Address Unknown Phone Unavailable Support Name Relationship Address Phone DUARTE SAINZ M.D. Caregiver [employer] [address] [place] [address] PINO FAULKNER Next Of Kin [address] [place] [address] CELL Insurance Providers Payer Name Policy Number Subscriber Name Relationship Self Pay Insurance Wong Garcia 01 Self / Same As Patient Chief Complaint and Reason for Visit Chief Complaint Abscess Reason for Visit Abscess of right forearm Problems Medical Problems Problem Onset Date Status [...] DAY For BACTINF 20 Qty 07/18/14 Active Social History Social History Problem Response Recorded Date/Time Hx Alcohol Use No 12/22/2007 4:43pm Hx Substance Use No 09/30/2007 3:35pm Smoking Status Heavy Tobacco Smoker 07/18/2014 7:51am Query Response Start Date Stop Date Smoking Status Heavy Tobacco Smoker Hospital Discharge Instructions No hospital discharge instructions. Plan of Care Discharge Date 07/18/14 8:32am Disposition 01 HOME, SELF-CARE Condition at Discharge Stable Instructions/Education Provided Abscess (ED) Prescriptions See Medications Section Functional Status [...] Vital Signs Vital Response Date/Time Blood Pressure 137/94 mm Hg Blood Pressure Mean 108 mm Hg Temperature (Fahrenheit) 97.4 degrees F (96.0 - 99.9) Temperature (Calculated Celsius) 36.02102 degrees C Temperature Source Oral Pulse Pulse Rate: ED 90 bpm Respiratory Rate 18 breaths per minute [...] COMMENT: 01SOURCE: URINE, CLEAN CATCH Urine Specific [place] March 15, 2014 1:15pm 1.015 1.005-1.030 SOURCE [...] Encounters Encounter Location Date/Time [facility]arted [facility] 07/18/14 7:47am Departed Emergency Room [facility] 07/03/14 8:25am Departed Emergency Room [facility] 06/05/14 12:06pm Departed Emergency Room [facility]lad Co[facility] 05/16/14 11:13am Departed Emergency Room [facility] 05/11/14 8:24am Departed Emergency Room [facility]inia[facility]lad Co[facility] 05/08/14 7:22am Departed Emergency Room [facility] 05/04/14 11:11am Departed Emergency Room [facility]inia[facility]lad Co[facility] 04/27/14 11:11am Departed Emergency Room [facility] 04/23/14 9:41am Departed Emergency Room [facility] 04/07/14 12:34pm Departed Emergency Room Herminiavlad Co[facility] 03/27/14 10:38am Departed Emergency Room [facility] 03/15/14 12:11pm Departed Emergency Room [facility] 03/02/14 10:49am Departed Emergency Room [facility] 01/16/14 8:33am Departed Emergency Room [facility] 12/20/13 12:20pm Departed Emergency Room [facility] 12/08/13 12:38pm Departed Emergency Room [facility] 12/01/13 5:06pm Departed Emergency Room [facility] 11/30/13 12:40pm Departed Emergency Room [facility] 11/01/13 3:13pm Departed Emergency Room [facility] 10/30/13 3:55pm Departed Emergency Room [facility] 10/08/13 9:00pm [facility] 09/29/13 1:05pm Departed Emergency Room [facility] 09/27/13 4:56pm Departed Emergency Room [facility] 09/12/13 8:17am [facility] 08/24/13 10:10am [facility] 08/04/13 5:24pm Departed Emergency Room [facility] 08/02/13 1:19pm [facility] 12:56pm Recent Diagnosis
--- OUTSIDE RECORDS SUMMARY | 2017-01-06 01:51 | XMS REPORT | Continuity of Care Document ---
Author Author [facility] Organization [facility] Address Unknown Phone Unavailable Support Name Relationship Address Phone OMAR LIZ M.D. Caregiver [address] [place] [address] [address] [place] [address] PINO FAULKNER Next Of Kin [address] [place] [address] CELL Insurance Providers Payer Name Policy Number [...] 09/30/2007 3:35pm Smoking Status Heavy Tobacco Smoker 08/09/2014 2:00pm Query Response Start Date Stop Date Smoking Status Heavy Tobacco Smoker Hospital Discharge Instructions No hospital discharge instructions. Plan of Care Discharge Date 08/09/14 3:38pm Disposition 01 HOME, SELF-CARE Condition at Discharge Stable Instructions/Education Provided Chronic Pain Management (ED) Prescriptions See Medications Section Additional Instructions/Education Please follow up with a primary doctor. The Emergency Department is the wrong place to manage chronic pain conditions. Dr. Villanueva is on-call for unassigned patients today. If you call and state you were seen in the ER he will set up a follow up appointment. Functional Status No functional status results. Allergies, Adverse Reactions, Alerts Allergen Type Severity Reaction Status Last Updated Codeine Adverse Reaction Unknown GI UPSET Active 06/05/14 Morphine Adverse Reaction Unknown Nausea/Vomiting Active 06/05/14 Quinolones Allergy Unknown SWELLING IN HANDS Active 06/05/14 Tramadol Adverse Reaction Unknown SEIZURE Active 06/05/14 Immunizations No immunization records. Vital Signs Acute Vital Signs Vital Response Date/Time Blood Pressure 109/56 mm Hg Blood Pressure Mean 73 mm Hg Temperature (Fahrenheit) 97.7 degrees F (96.0 - 99.9) Temperature (Calculated Celsius) 36.99946 degrees C Temperature Source Oral Pulse Pulse Rate: ED 83 bpm Respiratory Rate 16 breaths per minute (10 - 20) Height (Feet) 5 ft Height (Inches) 1 in. Weight (Pounds) 135 lbs Results Test Source Date Result Interp. [...] COMMENT: 01SOURCE: URINE, CLEAN CATCH Urine Specific [place] March 15, 2014 1:15pm 1.015 1.005-1.030 SOURCE [...] INJ SC/IM completed 07/26/14 DUARTE SAINZ M.D. DRAINAGE OF SKIN ABSCESS [...] Encounters Encounter Location Date/Time Departed Emergency Room [facility] 08/09/14 1:57pm Departed Emergency Room [facility] 07/30/14 8:44am Departed Emergency Room [facility] 07/28/14 7:19pm Departed Emergency Room [facility] 07/28/14 4:19pm Departed Emergency Room [facility] 07/26/14 3:57pm Departed Emergency Room [facility] 07/18/14 7:47am Departed Emergency Room [facility] 07/03/14 8:25am Departed Emergency Room [facility] 06/05/14 12:06pm Departed Emergency Room [facility] 05/16/14 11:13am Departed Emergency Room [facility] 05/11/14 8:24am Departed Emergency Room [facility] 05/08/14 7:22am Departed Emergency Room [facility] 05/04/14 11:11am Departed Emergency Room [facility] 04/27/14 11:11am Departed Emergency Room [facility] 04/23/14 9:41am Departed Emergency Room [facility] 04/07/14 12:34pm Departed Emergency Room [facility] 03/27/14 10:38am Departed Emergency Room [facility] 03/15/14 12:11pm Departed Emergency Room [facility] 03/02/14 10:49am Departed Emergency Room [facility] 01/16/14 8:33am Departed Emergency Room [facility] 12/20/13 12:20pm Departed Emergency Room [facility] 12/08/13 12:38pm Departed Emergency Room [facility] 12/01/13 5:06pm Departed Emergency Room [facility] 11/30/13 12:40pm [facility]/01[facility] 3:13pm [facility] 10/30/13 3:55pm Departed Emergency Room [facility] 10/08/13 9:00pm Departed Emergency Room [facility] 09/29/13 1:05pm Departed Emergency Room [facility] 09/27/13 4:56pm Departed Emergency Room [facility] 09/12/13 8:17am Departed Emergency Room [facility] 08/24/13 10:10am Recent Diagnosis
--- OUTSIDE RECORDS SUMMARY | 2017-01-06 01:51 | XMS REPORT | Continuity of Care Document ---
Author Author [facility] Organization [facility] Address Unknown Phone Unavailable Support Name Relationship Address Phone MEANS, LADY Mayberry M.D. Caregiver [facility] [address] [address], [address] [place] [address] PINO FAULKNER Next Of Kin [address] [place] [address] CELL Insurance Providers Payer Name Policy Number Subscriber Name Relationship Self Pay Insurance Wong Garcia 01 Self / Same As Patient Chief Complaint and Reason for Visit Chief Complaint Elbow Pain Reason for Visit [id number] Problems Medical Problems Problem Onset Date Status [...] Discontinued Oxycodone/Acetaminophen 1 Tab PO Q6H PRN 10 Qty 05/04/14 Active Social History Social History Problem Response Recorded Date/Time Hx Alcohol Use No 12/22/2007 4:43pm Hx Substance Use No 09/30/2007 3:35pm Smoking Status Heavy Tobacco Smoker 05/04/2014 11:15am Query Response Start Date Stop Date Smoking Status Heavy Tobacco Smoker Hospital Discharge Instructions No hospital discharge instructions. Plan of Care Discharge Date 05/04/14 12:02pm Disposition 01 HOME, SELF-CARE Condition at Discharge [...] Vital Signs Vital Response Date/Time Blood Pressure 120/82 mm Hg 05/04/2014 11:12am Blood Pressure Mean 95 mm Hg 05/04/2014 11:12am Temperature (Fahrenheit) 98.7 degrees F (96.0 - 99.9) 05/04/2014 11:12am Temperature (Calculated Celsius) 37.09783 degrees C 05/04/2014 11:12am Temperature Source Oral 05/04/2014 11:12am Pulse 05/04/2014 11:12am Pulse Rate: ED 100 bpm 05/04/2014 11:12am Respiratory Rate 18 breaths per minute (10 - 20) 05/04/2014 11:12am Results Test Source Date Result Interp. Ref. [...] Encounter Location Date/Time Departed Emergency Room [facility] 05/04/14 11:11am Departed Emergency Room [facility] 04/27/14 11:11am Departed Emergency Room [facility] 04/23/14 9:41am Departed Emergency Room [facility] 04/07/14 12:34pm Departed Emergency Room [facility] 03/27/14 10:38am Departed Emergency Room [facility] 03/15/14 12:11pm Departed Emergency Room [facility] 03/02/14 10:49am Departed Emergency Room [facility] 01/16/14 8:33am Departed Emergency Room [facility] 12/20/13 12:20pm Departed Emergency Room [facility] 12/08/13 12:38pm Departed Emergency Room [facility] 12/01/13 5:06pm Departed Emergency Room [facility] 11/30/13 12:40pm Departed Emergency Room [facility] 11/01/13 3:13pm Departed Emergency Room [facility] 10/30/13 3:55pm Departed Emergency Room [facility] 10/08/13 9:00pm Departed Emergency Room [facility] 09/29/13 1:05pm Departed Emergency Room [facility] 09/27/13 4:56pm Departed Emergency Room [facility]lad Co[facility] 09/12/13 8:17am Departed Emergency Room [facility] 08/24/13 10:10am Departed Emergency Room [facility] 08/04/13 5:24pm Departed Emergency Room [facility] 08/02/13 1:19pm Departed Emergency Room [facility] 08/01/13 12:56pm Departed Emergency Room [facility]lad Co[facility] 07/06/13 7:59am Departed Emergency Room [facility] Co[facility] 06/29/13 6:55pm Departed Emergency Room [facility] 06/18/13 9:18am Departed Emergency Room [facility] 06/16/13 4:13am Departed Emergency Room [facility] 06/06/13 1:44pm [facility] 05/05/13 3:52pm Departed Emergency Room [facility] 05/04/13 7:46pm Recent Diagnosis
--- OUTSIDE RECORDS SUMMARY | 2017-01-06 01:51 | XMS REPORT | Continuity of Care Document ---
Author Author [facility] Organization [facility] Address Unknown Phone Unavailable Support Name Relationship Address Phone RAFA GARCIA M.D. Caregiver [employer] [address] [place] [address] PINO FAULKNER Next Of Kin [address] [place] [address] CELL Insurance Providers Payer Name Policy Number [...] F (96.0 - 99.9) Temperature (Calculated Celsius) 36.04158 degrees C Temperature Source Oral Pulse Pulse [...] COMMENT: 01SOURCE: URINE, CLEAN CATCH Urine Specific [place] March 15, 2014 1:15pm 1.015 1.005-1.030 SOURCE [...] Provider(s) THER/PROPH/DIAG INJ SC/IM completed 06/05/14 RAFA GARICA M.D. THER/PROPH/DIAG INJ SC/IM completed 07/03/14 DUARTE [...] Encounters Encounter Location Date/Time Departed Emergency Room [facility] 07/30/14 8:44am Departed Emergency Room [facility] 07/28/14 7:19pm Departed Emergency Room [facility] 07/28/14 4:19pm Departed Emergency Room [facility] 07/26/14 3:57pm Departed Emergency Room [facility] 07/18/14 7:47am Departed Emergency Room [facility] 07/03/14 8:25am Departed Emergency Room [facility] 06/05/14 12:06pm Departed Emergency Room [facility] 05/16/14 11:13am Departed Emergency Room [facility] 05/11/14 8:24am Departed Emergency Room [facility] 05/08/14 7:22am Departed Emergency Room [facility] 05/04/14 11:11am Departed Emergency Room [facility] 04/27/14 11:11am Departed Emergency Room [facility] 04/23/14 9:41am Departed Emergency Room [facility] 04/07/14 12:34pm Departed Emergency Room [facility] 03/27/14 10:38am Departed Emergency Room [facility] 03/15/14 12:11pm Departed Emergency Room [facility] 03/02/14 10:49am Departed Emergency Room [facility] 01/16/14 8:33am Departed Emergency Room [facility] 12/20/13 12:20pm Departed Emergency Room [facility] 12/08/13 12:38pm Departed Emergency Room [facility] 12/01/13 5:06pm Departed Emergency Room [facility] 11/30/13 12:40pm Departed Emergency Room [place] [facility] 11/01/13 3:13pm Departed Emergency Room [place] [facility] 10/30/13 3:55pm Departed Emergency Room [place] [facility] 10/08/13 9:00pm [facility] 09/29/13 1:05pm Departed Emergency Room [facility] 09/27/13 4:56pm Departed Emergency Room [facility] 09/12/13 8:17am Departed Emergency Room [facility] 08/24/13 10:10am Departed Emergency Room [facility] 08/04/13 5:24pm Departed Emergency Room [place] [facility] 08/02/13 1:19pm Departed Emergency Room [facility] 08/01/13 12:56pm Recent Diagnosis
--- OUTSIDE RECORDS SUMMARY | 2017-01-06 01:51 | XMS REPORT | Continuity of Care Document ---
Author Author [facility] Organization [facility] Address Unknown Phone Unavailable Support Name Relationship Address Phone VICTORIANO STANLEY M.D. Caregiver [employer] [address] [place], [place] [id number] PINO FAULKNER Next Of Kin [address] [place] [address] CELL Insurance Providers Payer Name Policy Number Subscriber Name Relationship Self Pay Insurance Wong Garcia 01 Self / Same As Patient Chief Complaint and Reason for Visit Chief Complaint Throat Pain Reason for Visit Otitis media Problems Medical Problems Problem Onset Date Status [...] side Unknown Active Otitis media Unknown Active Medications Medication Dose Route Sig [...] Pregabalin 50 Mg PO DAILY 08/19/14 Active Amoxicillin 500 Mg OR THREE TIMES A DAY For . 30 Qty 08/19/14 Active Ibuprofen 600 Mg PO Every 6 hours as needed For Pain 15 Qty 08/19/14 Active Social History Social History Problem Response Recorded Date/Time Hx Alcohol Use No 12/22/2007 4:43pm Hx Substance Use No 09/30/2007 3:35pm Smoking Status Heavy Tobacco Smoker 08/19/2014 3:01am Query Response Start Date Stop Date Smoking Status Heavy Tobacco Smoker Hospital Discharge Instructions No hospital discharge instructions. Plan of Care Discharge Date 08/19/14 3:35am Disposition 01 HOME, SELF-CARE Condition at Discharge Stable Instructions/Education Provided Otitis Media (ED) Upper Respiratory Infection (ED) Prescriptions See Medications Section Referrals PANDA LU M.D. Functional Status No functional status results. Allergies, Adverse Reactions, Alerts Allergen Type Severity Reaction Status Last Updated Codeine Adverse Reaction Unknown GI UPSET Active 08/09/14 Morphine Adverse Reaction Unknown Nausea/Vomiting Active 08/09/14 Tramadol Adverse Reaction Unknown SEIZURE Active 08/09/14 Quinolones Allergy Unknown SWELLING IN HANDS Active 08/09/14 Immunizations No immunization records. Vital Signs Acute Vital Signs Vital Response Date/Time Blood Pressure 147/117 mm Hg Blood Pressure Mean 127 mm Hg Temperature (Fahrenheit) 98.0 degrees F (96.0 - 99.9) Temperature (Calculated Celsius) 36.25380 degrees C Temperature Source Oral Pulse Pulse [...] COMMENT: 01SOURCE: URINE, CLEAN CATCH Urine Specific [place] March 15, 2014 1:15pm 1.015 1.005-1.030 SOURCE [...] Encounters Encounter Location Date/Time Departed Emergency Room [facility] 08/19/14 2:57am Departed Emergency Room [facility] 08/09/14 1:57pm Departed Emergency Room [facility] 07/30/14 8:44am Departed Emergency Room [facility] 07/28/14 7:19pm Departed Emergency Room [facility] 07/28/14 4:19pm Departed Emergency Room [facility] 07/26/14 3:57pm Departed Emergency Room [facility] 07/18/14 7:47am Departed Emergency Room [facility] 07/03/14 8:25am Departed Emergency Room [facility] 06/05/14 12:06pm Departed Emergency Room [facility] 05/16/14 11:13am Departed Emergency Room [facility] 05/11/14 8:24am Departed Emergency Room [facility] 05/08/14 7:22am Departed Emergency Room [facility] 05/04/14 11:11am Departed Emergency Room [facility] 04/27/14 11:11am Departed Emergency Room [facility] 04/23/14 9:41am Departed Emergency Room [facility] 04/07/14 12:34pm Departed Emergency Room [facility] 03/27/14 10:38am Departed Emergency Room [facility] 03/15/14 12:11pm Departed Emergency Room [facility] 03/02/14 10:49am Departed Emergency Room [facility] 01/16/14 8:33am Departed Emergency Room [facility] 12/20/13 12:20pm Departed Emergency Room [facility] 12/08/13 12:38pm Departed Emergency Room [facility] 12/01/13 5:06pm Departed Emergency Room [facility] 11/30/13 12:40pm Departed Emergency Room [facility] 11/01/13 3:13pm Departed Emergency Room [facility] 10/30/13 3:55pm Departed Emergency Room [facility] 10/08/13 9:00pm Departed Emergency Room [facility] 09/29/13 1:05pm Departed Emergency Room [facility] 09/27/13 4:56pm Departed Emergency Room [facility] 09/12/13 8:17am Departed Emergency Room [facility] 08/24/13 10:10am Recent Diagnosis
--- OUTSIDE RECORDS SUMMARY | 2017-01-06 01:52 | XMS REPORT | Continuity of Care Document ---
Author Author [facility] Organization [facility] Address Unknown Phone Unavailable Support Name Relationship Address Phone VICTORIANO STANLEY M.D. Caregiver [employer] [address] [place], [place] [id number] PINO FAULKNER Next Of Kin [address] [place] [address] CELL Insurance Providers Payer Name Policy Number [...] Media (ED) Prescriptions See Medications Section Referrals EMETREIO LEONG M.D. Functional Status No functional status [...] F (96.0 - 99.9) Temperature (Calculated Celsius) 36.08222 degrees C Temperature Source Oral Pulse Pulse [...] 01SOURCE: URINE, CLEAN CATCH Urine Specific [place] March 15, 2014 1:15pm 1.015 1.005-1.030 SOURCE [...] Emergency Room [facility] 09/07/14 7:13pm Registered Emergency Room [facility] 09/07/14 2:25pm Departed Emergency Room [facility] 09/03/14 2:13pm Departed Emergency Room [facility] 08/19/14 2:57am [facility]ed [facility] 04/07/14 12:34pm Departed Emergency Room [facility] 03/27/14 10:38am Departed Emergency Room [facility] 03/15/14 12:11pm Departed Emergency Room [facility] 03/02/14 10:49am Departed Emergency Room [facility] 01/16/14 8:33am Departed Emergency Room [facility] 12/20/13 12:20pm Departed Emergency Room [facility] 12[facility]08/13 12:38pm [facility] 12/01/13 5:06pm Departed Emergency Room [facility] 11/30/13 12:40pm Departed Emergency Room [facility] 11/01/13 3:13pm [facility] 10/30/13 3:55pm [facility] 10/08/13 9:00pm Departed Emergency Room [facility] 09/29/13 1:05pm Departed Emergency Room [facility] 09/27/13 4:56pm Departed Emergency Room [facility] 09/12/13 8:17am Recent Diagnosis Otitis media acute
--- OUTSIDE RECORDS SUMMARY | 2017-01-06 02:15 | XMS REPORT | Continuity of Care Document ---
Author Author [facility] Organization [facility] Address Unknown Phone Unavailable Support Name Relationship Address Phone KORIN GOYAL M.D. Caregiver [address] [place] [id number] PINO FAULKNER Next Of Kin [address] [place] [address] CELL Insurance Providers Payer Name Policy Number Subscriber Name Relationship [facility] [id number] Aleksandar Garcia 02 Chief Complaint and Reason [...] DAY PRN SPASM 15 Qty 07/03/14 Discontinued Wjdhgvhawr-Tesnuxcxegcud-Pdtvw 1 Tab PO Every 6 hours as [...] F (96.0 - 99.9) Temperature (Calculated Celsius) 36.95950 degrees C Temperature Source Oral Pulse Pulse [...] NONE SOURCE: URINE, CLEAN CATCH Urine Specific [place] September 28, 2014 12:00am >=1.030 1.005-1.030 SOURCE: [...] Departed Emergency Room [facility] 02/13/15 7:40am Departed Emergency Room [facility] 01/15/15 10:42am Departed Emergency Room [facility] 01/13/15 1:49pm Departed Emergency Room [facility] 01/12/15 1:08am Departed Emergency Room [facility] 01/03/15 8:41am Departed Emergency Room [facility] 12/01/14 10:41pm Departed Emergency Room [facility] 11/30/14 10:32am Departed Emergency Room [facility] 11/27/14 12:57pm Departed Emergency Room [facility] 11/26/14 4:07pm Departed Emergency Room [facility] Co[facility] 11/03/14 5:04pm Departed Emergency Room Herminia BJosh Eros [facility] 10/16/14 12:09pm Departed Emergency Room Herminia BJosh E[facility] 09/28/14 3:12pm Departed Emergency Room [facility] 09/26/14 8:40am Departed Emergency Room [facility] Co[facility] 09/22/14 12:44pm Departed Emergency Room [facility] BJosh [facility] 09/09/14 2:10am Departed Emergency Room [facility] Co[facility] 09/07/14 7:13pm Departed Emergency Room [facility] 09/07/14 2:25pm Departed Emergency Room [facility] 09/03/14 2:13pm Departed Emergency Room [facility] 08/19/14 2:57am Departed Emergency Room [facility] 08/09/14 1:57pm Departed Emergency Room [facility] 07/30/14 8:44am Departed Emergency Room [facility] B[facility] 07/28/14 7:19pm Departed Emergency Room [facility] B[facility] 07/28/14 4:19pm Departed Emergency Room [facility] 07/26/14 3:57pm Departed Emergency Room [facility] B[facility] 07/18/14 7:47am Departed Emergency Room [facility] BJosh [facility] 07/03/14 8:25am Departed Emergency Room [facility] 06/05/14 12:06pm Departed Emergency Room Herminia Thanh [facility] 05/16/14 11:13am Departed Emergency Room [facility] 05/11/14 8:24am Departed Emergency Room [facility] 05/08/14 7:22am Departed Emergency Room [facility] 05/04/14 11:11am Departed Emergency Room [facility] 04/27/14 11:11am Departed Emergency Room [facility] 04/23/14 9:41am Departed Emergency Room [facility] 04/07/14 12:34pm Departed Emergency Room [facility] 03/27/14 10:38am Departed Emergency Room [facility] 03/15/14 12:11pm Departed Emergency Room [facility] 03/02/14 10:49am Recent Diagnosis
--- OUTSIDE RECORDS SUMMARY | 2017-01-06 02:15 | XMS REPORT | Continuity of Care Document ---
Author Author [facility] Organization [facility] Address Unknown Phone Unavailable Support Name Relationship Address Phone VICTORIANO STANLEY M.D. Caregiver [employer] [address] [place] [id number] PINO FAULKNER Next Of Kin [address] [place] [address] CELL Insurance Providers Payer Name Policy Number [...] F (96.0 - 99.9) Temperature (Calculated Celsius) 36.33708 degrees C Temperature Source Oral Pulse Pulse [...] COMMENT: 01SOURCE: URINE, CLEAN CATCH Urine Specific [place] March 15, 2014 1:15pm 1.015 1.005-1.030 SOURCE [...] Encounters Encounter Location Date/Time Departed Emergency Room [facility] 07/28/14 7:19pm Registered Emergency Room [facility] 07/28/14 4:19pm Departed Emergency Room [facility] 07/26/14 3:57pm Departed Emergency Room [facility] 07/18/14 7:47am Departed Emergency Room [facility] 07/03/14 8:25am Departed Emergency Room [facility] 06/05/14 12:06pm Departed Emergency Room [facility] 05/16/14 11:13am Departed Emergency Room [facility] 05/11/14 8:24am Departed Emergency Room [facility] 05/08/14 7:22am Departed Emergency Room [facility] 05/04/14 11:11am Departed Emergency Room [facility] 04/27/14 11:11am Departed Emergency Room [facility] 04/23/14 9:41am Departed Emergency Room [facility] 04/07/14 12:34pm Departed Emergency Room [facility] 03/27/14 10:38am Departed Emergency Room [facility] 03/15/14 12:11pm Departed Emergency Room [facility] 03/02/14 10:49am Departed Emergency Room [facility] 01/16/14 8:33am Departed Emergency Room [facility] 12/20/13 12:20pm Departed Emergency Room [facility] 12/08/13 12:38pm Departed Emergency Room [facility] 12/01/13 5:06pm Departed Emergency Room [facility] 11/30/13 12:40pm Departed Emergency Room [facility] 11/01/13 3:13pm Departed Emergency Room [facility] 10/30/13 3:55pm Departed Emergency Room [facility] 10/08/13 9:00pm Departed Emergency Room [facility] 09/29/13 1:05pm Departed Emergency Room [facility] 09/27/13 4:56pm Departed Emergency Room [facility] 09/12/13 8:17am Departed Emergency Room [facility] 08/24/13 10:10am Departed Emergency Room [facility] 08/04/13 5:24pm Departed Emergency Room [facility] 08/02/13 1:19pm Departed Emergency Room [facility] 08/01/13 12:56pm Recent Diagnosis
--- OUTSIDE RECORDS SUMMARY | 2017-01-06 02:15 | XMS REPORT | Continuity of Care Document ---
Author Author [facility] Organization [facility] Address Unknown Phone Unavailable Support Name Relationship Address Phone DUARTE SAINZ M.D. Caregiver [employer] [address] [place] [address] PINO FAULKNER Next Of Kin [address] [place] [address] CELL Insurance Providers Payer Name Policy Number Subscriber Name Relationship Self Pay Insurance Wong Garcia 01 Self / Same As Patient Chief Complaint and Reason for Visit Chief Complaint Fall Reason for Visit [id number] Problems Medical Problems Problem Onset Date Status [...] F (96.0 - 99.9) Temperature (Calculated Celsius) 36.58695 degrees C Temperature Source Oral Pulse Pulse [...] COMMENT: 01SOURCE: URINE, CLEAN CATCH Urine Specific [place] March 15, 2014 1:15pm 1.015 1.005-1.030 SOURCE [...] M.D. DRAINAGE OF SKIN ABSCESS completed 07/18/14 UDARTE SAINZ M.D. Incision and drainage of soft [...] Encounters Encounter Location Date/Time Departed Emergency Room [facility] 09/03/14 2:13pm Departed Emergency Room [facility] 08/19/14 2:57am Departed Emergency Room [facility] 08/09/14 1:57pm Departed Emergency Room [facility] 07/30/14 8:44am Departed Emergency Room [facility] 07/28/14 7:19pm Departed Emergency Room [facility] 07/28/14 4:19pm Departed Emergency Room [facility] 07/26/14 3:57pm Departed Emergency Room [facility] 07/18/14 7:47am Departed Emergency Room [facility] 07/03/14 8:25am Departed Emergency Room [facility] 06/05/14 12:06pm Departed Emergency Room [facility] 05/16/14 11:13am Departed Emergency Room [facility] 05/11/14 8:24am Departed Emergency Room [facility] 05/08/14 7:22am Departed Emergency Room [facility] 05/04/14 11:11am Departed Emergency Room [facility] 04/27/14 11:11am Departed Emergency Room [facility] 04/23/14 9:41am Departed Emergency Room [facility] 04/07/14 12:34pm Departed Emergency Room [facility] 03/27/14 10:38am Departed Emergency Room [facility] 03/15/14 12:11pm Departed Emergency Room [facility]lad Co[facility] 03/02/14 10:49am Departed Emergency Room [facility] Co[facility] 01/16/14 8:33am Departed Emergency Room [facility] Co[facility] 12/20/13 12:20pm Departed Emergency Room [facility] Co[facility] 12/08/13 12:38pm Departed Emergency Room [facility] Co[facility] 12/01/13 5:06pm Departed Emergency Room [facility] 11/30/13 12:40pm Departed Emergency Room Herminia Thanh Co[facility] 11/01/13 3:13pm Departed Emergency Room [place] [facility] 10/30/13 3:55pm Departed Emergency Room [facility] Co[facility] 10/08/13 9:00pm Departed Emergency Room [facility] 09/29/13 1:05pm Departed Emergency Room [facility] 09/27/13 4:56pm Departed Emergency Room [facility] 09/12/13 8:17am Recent Diagnosis
--- OUTSIDE RECORDS SUMMARY | 2017-01-06 02:16 | XMS REPORT | Continuity of Care Document ---
Author Author [facility] Organization [facility] Address Unknown Phone Unavailable Support Name Relationship Address Phone VICTORIANO STANLEY M.D. Caregiver [employer] [address] [place] [address] PINO FAULKNER Next Of Kin [address] [place] [address] CELL Insurance Providers Payer Name Policy Number [...] Encounters Encounter Location Date/Time Departed Emergency Room [facility] 04/07/14 12:34pm Departed Emergency Room [facility] 03/27/14 10:38am Departed Emergency Room [facility] 03/15/14 12:11pm Departed Emergency Room [facility] 03/02/14 10:49am Departed Emergency Room [facility] 01/16/14 8:33am Departed Emergency Room [facility] Co[facility] 12/20/13 12:20pm Departed Emergency Room [facility] 12/08/13 12:38pm Departed Emergency Room [facility]lad Co[facility] 12/01/13 5:06pm Departed Emergency Room [facility] Co[facility] 11/30/13 12:40pm Departed Emergency Room Herminia BJosh Eros [facility] 11/01/13 3:13pm Departed Emergency Room [facility] 10/30/13 3:55pm Departed Emergency Room [facility] 10/08/13 9:00pm Departed Emergency Room Herminia BJosh [facility] 09/29/13 1:05pm Departed Emergency Room [facility] 09/27/13 4:56pm Departed Emergency Room [facility] 09/12/13 8:17am Departed Emergency Room Herminia YuJosh [facility] 08/24/13 10:10am Departed Emergency Room [facility] 08/04/13 5:24pm Departed Emergency Room Herminia Thanh [facility] 08/02/13 1:19pm Departed Emergency [facility] 08/01/13 12:56pm Departed Emergency Room [facility]lad Cooney [facility] 07/06/13 7:59am Departed Emergency Room [facility] 06/29/13 6:55pm Departed Emergency Room Herminia Thanh [facility] 06/18/13 9:18am Departed Emergency Room Herminia BJosh [facility] 06/16/13 4:13am Departed Emergency Room [facility] 06/06/13 1:44pm Departed Emergency Room [facility] 05/05/13 3:52pm Departed Emergency Room [facility] 05/04/13 7:46pm Departed Emergency Room [place] [facility] 04/07/13 11:59pm Recent Diagnosis Migraine
--- OUTSIDE RECORDS SUMMARY | 2017-01-06 02:16 | XMS REPORT | Continuity of Care Document ---
Author Author [facility] Organization [facility] Address Unknown Phone Unavailable Support Name Relationship Address Phone KORIN GOYAL M.D. Caregiver [facility] [place] [id number] PINO FAULKNER Next Of Kin [address] [place] [address] CELL Insurance Providers Payer Name Policy Number Subscriber Name Relationship [employer] [id number] Wong Garcia 01 Self / Same As Patient [facility] [id number] Aleksandar Garcia 02 Chief Complaint and Reason [...] DAY PRN SPASM 15 Qty 07/03/14 Discontinued Nnwpkqtvti-Yzgxpltyufnnd-Mjoyg 1 Tab PO THREE TIMES A DAY For MIGRAINE 10 Qty 11/03/14 Active Tleujurbhc-Timgmbobordjp-Qxzri 1 Tab PO Every 6 hours as [...] F (96.0 - 99.9) Temperature (Calculated Celsius) 36.73035 degrees C Temperature Source Oral Pulse Pulse [...] NONE SOURCE: URINE, CLEAN CATCH Urine Specific [place] September 28, 2014 12:00am >=1.030 1.005-1.030 SOURCE: [...] Encounters Encounter Location Date/Time Departed Emergency Room [facility] 01/13/15 1:49pm Departed Emergency Room [facility] 01/12/15 1:08am Departed Emergency Room [facility] 01/03/15 8:41am Departed Emergency Room [facility] 12/01/14 10:41pm Departed Emergency Room [facility] 11/30/14 10:32am Departed Emergency Room [facility] 11/27/14 12:57pm Departed Emergency Room [facility] 11/26/14 4:07pm Departed Emergency Room [facility] 11/03/14 5:04pm Departed Emergency Room [facility] 10/16/14 12:09pm Departed Emergency Room [facility] 09/28/14 3:12pm Departed Emergency Room [facility] 09/26/14 8:40am Departed Emergency Room [facility] 09/22/14 12:44pm Departed Emergency Room [facility] 09/09/14 2:10am Departed Emergency Room [facility] 09/07/14 7:13pm Departed Emergency Room [facility] 09/07/14 2:25pm Departed Emergency Room [facility] 09/03/14 2:13pm Departed Emergency Room [facility] 08/19/14 2:57am Departed Emergency Room [facility] 08/09/14 1:57pm Departed Emergency Room [facility] 07/30/14 8:44am Departed Emergency Room [facility] Co[facility] 07/28/14 7:19pm Departed Emergency Room [facility] 07/28/14 4:19pm Departed Emergency Room [facility] 07/26/14 3:57pm Departed Emergency Room [facility] 07/18/14 7:47am Departed Emergency Room [facility] 07/03/14 8:25am Departed Emergency Room [facility] 06/05/14 12:06pm Departed Emergency Room [facility] 05/16/14 11:13am Departed Emergency Room [facility] Co[facility] 05/11/14 8:24am Departed Emergency Room [facility] 05/08/14 7:22am Departed Emergency Room [facility] 05/04/14 11:11am Departed Emergency Room [facility] 04/27/14 11:11am Departed Emergency Room [facility] 04/23/14 9:41am Departed Emergency Room [facility] 04/07/14 12:34pm Departed Emergency Room [facility] Co[facility] 03/27/14 10:38am Departed Emergency Room [facility] 03/15/14 12:11pm Departed Emergency Room [facility] 03/02/14 10:49am Departed Emergency Room [facility] Co[facility] 01/16/14 8:33am Recent Diagnosis Headache
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
--- OUTSIDE RECORDS SUMMARY | 2017-01-06 02:16 | XMS REPORT | Continuity of Care Document ---
Author Author [facility] Organization [facility] Address Unknown Phone Unavailable Support Name Relationship Address Phone VICTORIANO STANLEY M.D. Caregiver [employer] [address] [place] [address] PINO FAULKNER Next Of Kin [address] [place] [address] CELL Insurance Providers Payer Name Policy Number Subscriber Name Relationship [facility] [id number] Aleksandar Garcia 02 Chief Complaint and Reason for Visit Chief Complaint Abscess Reason for Visit [id number] Problems Medical Problems Problem Onset Date Status [...] Mg PO TWICE A DAY 08/19/14 Active Izgwtvnczu-Conwbvdvgptsa-Bgnac 1 Tab PO THREE TIMES A DAY [...] F (96.0 - 99.9) Temperature (Calculated Celsius) 36.42296 degrees C Temperature Source Oral Pulse Pulse [...] NONE SOURCE: URINE, CLEAN CATCH Urine Specific [place] September 28, 2014 12:00am >=1.030 1.005-1.030 SOURCE: [...] Encounters Encounter Location Date/Time Departed Emergency Room [facility] 11/30/14 10:32am Departed Emergency Room [facility] 11/27/14 12:57pm Departed Emergency Room [facility] 11/26/14 4:07pm Departed Emergency Room [facility] 11/03/14 5:04pm Departed Emergency Room [facility] 10/16/14 12:09pm Departed Emergency Room Tyronza BJosh E[facility] 09/28/14 3:12pm Departed Emergency Room Herminia BJosh Eros [facility] 09/26/14 8:40am Departed Emergency Room Herminia BJosh Eros [facility] 09/22/14 12:44pm Departed Emergency Room Herminiavlad Cooney [facility] 09/09/14 2:10am Departed Emergency Room Herminia BJosh [facility] 09/07/14 7:13pm Departed Emergency Room Herminia BJosh Eros [facility] 09/07/14 2:25pm Departed Emergency Room Herminia BJosh Eros [facility] 09/03/14 2:13pm Departed Emergency Room Herminia BJosh E[facility] 08/19/14 2:57am Departed Emergency Room Herminia BJosh [facility] 08/09/14 1:57pm Departed Emergency Room Herminia BJosh [facility] 07/30/14 8:44am Departed Emergency Room Herminia BJosh [facility] 07/28/14 7:19pm Departed Emergency Room Herminia BJosh [facility] 07/28/14 4:19pm Departed Emergency Room Herminiavlad Cooney [facility] 07/26/14 3:57pm Departed Emergency Room Herminiavlad Cooney [facility] 07/18/14 7:47am Departed Emergency Room Herminiavlad Cooney [facility] 07/03/14 8:25am Departed Emergency Room Herminiavlad Cooney [facility] 06/05/14 12:06pm Departed Emergency Room Herminia BJosh E[facility] 05/16/14 11:13am Departed Emergency Room Herminia Thanh Eros [facility] 05/11/14 8:24am Departed Emergency Room Herminia BJosh E[facility] 05/08/14 7:22am Departed Emergency Room Herminia B. [facility] 05/04/14 11:11am Departed Emergency Room Herminia B. [facility] 04/27/14 11:11am Departed Emergency Room Herminia BJosh Eros [facility] 04/23/14 9:41am Departed Emergency Room Herminia B. [facility] 04/07/14 12:34pm Departed Emergency Room Herminia BJosh [facility] 03/27/14 10:38am Departed Emergency Room Herminia B. [facility] 03/15/14 12:11pm Departed Emergency Room Tyronza Thanh [facility] 03/02/14 10:49am Departed Emergency Room Tyronza Thanh [facility] 01/16/14 8:33am Departed Emergency Room Tyronza Thanh [facility] 12/20/13 12:20pm Departed Emergency Room Tyronza Thanh [facility] 12/08/13 12:38pm Departed Emergency Room Tyronza Thanh [facility] 12/01/13 5:06pm [facility] 12:40[facility] Recent Diagnosis
--- OUTSIDE RECORDS SUMMARY | 2017-01-06 02:16 | XMS REPORT | Continuity of Care Document ---
Author Author [facility] Organization [facility] Address Unknown Phone Unavailable Support Name Relationship Address Phone SHILA TIDWELL D.O. Caregiver [employer] [address] [place] [address] PINO FAULKNER Next Of Kin [address] [place] [address] CELL Insurance Providers Payer Name Policy Number [...] Encounters Encounter Location Date/[facility] 8:24am [facility] 05/08/14 7:22am Departed Emergency Room [facility] 05/04/14 11:11am Departed Emergency Room [facility] 04/27/14 11:11am Departed Emergency Room [facility] 04/23/14 9:41am Departed Emergency Room [facility] 04/07/14 12:34pm Departed Emergency Room [facility] 03/27/14 10:38am Departed Emergency Room [facility] 03/15/14 12:11pm Departed Emergency Room [facility] 03/02/14 10:49am Departed Emergency Room [facility] 01/16/14 8:33am Departed Emergency Room [facility] 12/20/13 12:20pm Departed Emergency Room [facility] 12/08/13 12:38pm Departed Emergency Room [facility] 12/01/13 5:06pm Departed Emergency Room [facility] 11/30/13 12:40pm Departed Emergency Room [facility] 11/01/13 3:13pm Departed Emergency Room [facility] 10/30/13 3:55pm Departed Emergency Room [facility] 10/08/13 9:00pm Departed Emergency Room [facility] 09/29/13 1:05pm Departed Emergency Room [facility] 09/27/13 4:56pm Departed Emergency Room [facility] 01/06/14 8:17am Departed Emergency Room [facility] 08/24/13 10:10am Departed Emergency Room [facility] 08/04/13 5:24pm Departed Emergency Room [facility] 08/02/13 1:19pm Departed Emergency Room [facility] 08/01/13 12:56pm Departed Emergency Room [facility] 07/06/13 7:59am Departed Emergency Room [facility] 06/29/13 6:55pm Departed Emergency Room [facility] 06/18/13 9:18am Departed Emergency Room [facility] 06/16/13 4:13am Departed Emergency Room [facility] 06/06/13 1:44pm Recent Diagnosis
--- OUTSIDE RECORDS SUMMARY | 2017-01-06 02:17 | XMS REPORT | Continuity of Care Document ---
Author Author [facility] Organization [facility] Address Unknown Phone Unavailable Support Name Relationship Address Phone VICTORIANO STANLEY M.D. Caregiver [employer] [address] [place] [address] PINO FAULKNER Next Of Kin [address] [place] [address] CELL Insurance Providers Payer Name Policy Number [...] - 99.9) 03/27/2014 10:39am Temperature (Calculated Celsius) 37.61415 degrees C 03/27/2014 10:39am Temperature Source Oral [...] Location Date/Time Departed Emergency Room Herminiavlad Cooney [facility] 03/27/14 10:38am Departed Emergency Room Herminia BJosh Eros [facility] 03/15/14 12:11pm Departed Emergency Room Herminia BJosh Eros [facility] 03/02/14 10:49am Departed Emergency Room Herminia BJosh Eros [facility] 01/16/14 8:33am Departed Emergency Room Herminia BJosh Eros [facility] 12/20/13 12:20pm Departed Emergency Room Herminia BJosh Eros [facility] 12/08/13 12:38pm Departed Emergency Room Herminia BJosh Eros [facility] 12/01/13 5:06pm Departed Emergency Room Herminia BJosh Eros [facility] 11/30/13 12:40pm Departed Emergency Room Herminia BJosh Eros [facility] 11/01/13 3:13pm Departed Emergency Room Herminia BJosh Eros [facility] 10/30/13 3:55pm Departed Emergency Room Herminia BJosh Eros [facility] 10/08/13 9:00pm Departed Emergency Room Herminia BJosh Eros [facility] 09/29/13 1:05pm Departed Emergency Room Herminia BJosh Eros [facility] 09/27/13 4:56pm Departed Emergency Room Herminia BJosh Eros [facility] 09/12/13 8:17am Departed Emergency Room Herminia BJosh Eros [facility] 08/24/13 10:10am Departed Emergency Room Herminia BJosh Eros [facility] 08/04/13 5:24pm Departed Emergency Room Herminia B. Eros [facility] 08/02/13 1:19pm Departed Emergency Room Herminia B. Eros [facility] 08/01/13 12:56pm Departed Emergency Room Herminia Thanh Eros [facility] 07/06/13 7:59am Departed Emergency Room Herminiavlad Cooney [facility] 06/29/13 6:55pm Departed Emergency Room Herminiavlad Cooney [facility] 06/18/13 9:18am Departed Emergency Room Hreminiavlad Cooney [facility] 06/16/13 4:13am Departed Emergency Room Herminiavlad Cooney [facility] 06/06/13 1:44pm Departed Emergency Room Herminiavlad Cooney [facility] 05/05/13 3:52pm Departed Emergency Room Herminia Cooney [facility] 05/04/13 7:46pm Departed Emergency Room Herminia B. [facility] 04/07/13 11:59pm Departed Emergency Room Herminiavlad Cooney [facility] 04/04/13 5:09am Departed Emergency Room V[place] Thanh [facility] 04/03/13 9:52pm Recent Diagnosis Headache
--- OUTSIDE RECORDS SUMMARY | 2017-01-06 02:17 | XMS REPORT | Continuity of Care Document ---
Author Author [facility] Organization [facility] Address Unknown Phone Unavailable Support Name Relationship Address Phone RAFA GARCIA M.D. Caregiver [employer] [address] [place] [address] PINO FAULKNER Next Of Kin [address] [place] [address] CELL Insurance Providers Payer Name Policy Number Subscriber Name Relationship [facility] [id number] Nicholas Garcia 02 Chief Complaint and Reason for Visit Chief Complaint Abdominal Pain Reason for Visit [id number] Problems Medical Problems Problem Onset Date Status [...] F (96.0 - 99.9) Temperature (Calculated Celsius) 36.41486 degrees C Temperature Source Oral Pulse Pulse [...] NONE SOURCE: URINE, CLEAN CATCH Urine Specific [place] September 28, 2014 12:00am >=1.030 1.005-1.030 SOURCE: [...] Encounters Encounter Location Date/Time Departed Emergency Room [facility] 09/28/14 3:12pm Departed Emergency Room [facility] 09/26/14 8:40am Departed Emergency Room [facility] 09/22/14 12:44pm Departed Emergency Room [facility] 09/09/14 2:10am Departed Emergency Room [facility] 09/07/14 7:13pm Departed Emergency Room [facility] 09/07/14 2:25pm Departed Emergency Room [facility] 09/03/14 2:13pm Departed Emergency Room [facility] 08/19/14 2:57am Departed Emergency Room [facility] 08/09/14 1:57pm Departed Emergency Room [facility] 07/30/14 8:44am Departed Emergency Room [facility] 07/28/14 7:19pm Departed Emergency Room Herminiavlad Cooney [facility] 07/28/14 4:19pm Departed Emergency Room Herminiavlad Cooney [facility] 07/26/14 3:57pm Departed Emergency Room Herminiavlad Cooney [facility] 07/18/14 7:47am Departed Emergency Room Herminiavlad Cooney [facility] 07/03/14 8:25am Departed Emergency Room Herminia BJosh Eros [facility] 06/05/14 12:06pm Departed Emergency Room Herminiavlad Cooney [facility] 05/16/14 11:13am Departed Emergency Room Herminiavlad Cooney [facility] 05/11/14 8:24am Departed Emergency Room Herminiavlad Cooney [facility] 05/08/14 7:22am Departed Emergency Room Herminiavlad Cooney [facility] 05/04/14 11:11am Departed Emergency Room Herminiavlad Cooney [facility] 04/27/14 11:11am Departed Emergency Room Herminiavlad Cooney [facility] 04/23/14 9:41am Departed Emergency Room Herminiavlad Cooney [facility] 04/07/14 12:34pm Departed Emergency Room Herminiavlad Coonye [facility] 03/27/14 10:38am Departed Emergency Room Herminiavlad Cooney [facility] 03/15/14 12:11pm Departed Emergency Room Herminiavlad Cooney [facility] 03/02/14 10:49am Departed Emergency Room Herminia BJosh Eros [facility] 01/16/14 8:33am Departed Emergency Room Herminia BJosh Eros [facility] 12/20/13 12:20pm Departed Emergency Room Herminia BJosh Eros [facility] 12/08/13 12:38pm Departed Emergency Room Herminia BJosh [facility] 12/01/13 5:06pm Departed Emergency Room Herminia BJosh [facility] 11/30/13 12:40pm Departed Emergency Room Herminia BJosh [facility] 11/01/13 3:13pm Departed Emergency Room Herminia BJosh Eros [facility] 10/30/13 3:55pm Departed Emergency Room Herminia B. [facility] 10/08/13 9:00pm Departed Emergency Room Herminia Cooney [facility] 09/29/13 1:05pm Recent Diagnosis
--- OUTSIDE RECORDS SUMMARY | 2017-01-06 02:17 | XMS REPORT | Continuity of Care Document ---
Author Author [facility] Organization [facility] Address Unknown Phone Unavailable Support Name Relationship Address Phone RAFA GARCIA M.D. Caregiver [employer] [address] [place] [address] PINO FAULKNER Next Of Kin [address] [place] [address] CELL Insurance Providers Payer Name Policy Number [...] F (96.0 - 99.9) Temperature (Calculated Celsius) 36.60059 degrees C Temperature Source Oral Pulse Pulse [...] COMMENT: 01SOURCE: URINE, CLEAN CATCH Urine Specific [place] March 15, 2014 1:15pm 1.015 1.005-1.030 SOURCE [...] of soft tissue (procedure) completed 07/18/14 DUARTE SAIZN M.D. THER/PROPH/DIAG INJ SC/IM completed 07/26/14 DUARTE [...] Encounters Encounter Location Date/Time Departed Emergency Room [facility] 07/30/14 8:44am Departed Emergency Room [facility] 07/28/14 7:19pm Registered Emergency Room [facility] 07/28/14 4:19pm Departed Emergency Room [facility] 07/26/14 3:57pm Departed Emergency Room [facility] 07/18/14 7:47am Departed Emergency Room [facility] 07/03/14 8:25am Departed Emergency Room [facility] 06/05/14 12:06pm Departed Emergency Room [facility] 05/16/14 11:13am Departed Emergency Room [facility] 05/11/14 8:24am Departed Emergency Room [facility] 05/08/14 7:22am Departed Emergency Room [facility] 05/04/14 11:11am Departed Emergency Room [facility] 04/27/14 11:11am Departed Emergency Room [facility] 04/23/14 9:41am Departed Emergency Room [facility] 04/07/14 12:34pm Departed Emergency Room [facility] 03/27/14 10:38am Departed Emergency Room [facility] 03/15/14 12:11pm Departed Emergency Room [facility] 03/02/14 10:49am Departed Emergency Room [facility] 01/16/14 8:33am Departed Emergency Room [facility] 12/20/13 12:20pm Departed Emergency Room [facility] 12/08/13 12:38pm Departed Emergency Room Herminiavlad Cooney [facility] 12/01/13 5:06pm Departed Emergency Room Herminia B. [facility] 11/30/13 12:40pm Departed Emergency Room Gil[place] Thanh [facility] 11/01/13 3:13pm Departed Emergency Room Herminiavlad Cooney [facility] 10/30/13 3:55pm Departed Emergency Room Gil[facility] Thanh [facility] 10/08/13 9:00pm Departed Emergency Room Gilman Thanh Cooney [facility] 09/29/13 1:05pm Departed Emergency Room Herminia B. [facility] 09/27/13 4:56pm Departed Emergency Room Gilman Thanh [facility] 09/12/13 8:17am Departed Emergency Room Gilman Thanh [facility] 08/24/13 10:10am Departed Emergency Room Gilman Thanh [facility] 08/04/13 5:24pm Departed Emergency Room Gilman Thanh Cooney [facility] 08/02/13 1:19pm Departed Emergency Room Gilman Thanh [facility] 08/01/13 12:56pm Recent Diagnosis
--- OUTSIDE RECORDS SUMMARY | 2017-01-06 02:17 | XMS REPORT | Continuity of Care Document ---
Author Author [facility] Organization [facility] Address Unknown Phone Unavailable Support Name Relationship Address Phone VICTORIANO STANLEY M.D. Caregiver [employer] [address] [place] [address] PINO FAULKNER Next Of Kin [address] [place] [address] CELL Insurance Providers Payer Name Policy Number Subscriber Name Relationship [facility] [employer] [id number] Wong Garcia 01 Self / Same As Patient [facility] [id number] Aleksandar Garcia 02 Problems Medical Problems Problem [...] DAY PRN SPASM 15 Qty 07/03/14 Discontinued Ndyblbeduv-Fxqujhceytcaq-Iwxwy 1 Tab PO THREE TIMES A DAY [...] F (96.0 - 99.9) Temperature (Calculated Celsius) 36.62036 degrees C Temperature Source Oral Pulse Pulse [...] NONE SOURCE: URINE, CLEAN CATCH Urine Specific [place] September 28, 2014 12:00am >=1.030 1.005-1.030 SOURCE: [...] Encounters Encounter Location Date/Time Registered Emergency Room [facility] 01/12/15 1:08am Departed Emergency Room [facility] 01/03/15 8:41am Departed Emergency Room [facility] 12/01/14 10:41pm Departed Emergency Room [facility] 11/30/14 10:32am Departed Emergency Room [facility] 11/27/14 12:57pm Departed Emergency Room [facility] 11/26/14 4:07pm Departed Emergency Room [facility] 11/03/14 5:04pm Departed Emergency Room [facility] 10/16/14 12:09pm Departed Emergency Room [facility] 09/28/14 3:12pm Departed Emergency Room [facility] 09/26/14 8:40am Departed Emergency Room [facility] 09/22/14 12:44pm Departed Emergency Room [facility] 09/09/14 2:10am Departed Emergency Room [facility] 09/07/14 7:13pm Departed Emergency Room [facility] 01/01/15 2:25pm Departed Emergency Room Herminiavlad Cooney [facility] 09/03/14 2:13pm Departed Emergency Room Herminiavlad Cooney [facility] 08/19/14 2:57am Departed Emergency Room Herminiavlad Cooney [facility] 08/09/14 1:57pm Departed Emergency Room Herminiavlad Cooney [facility] 07/30/14 8:44am Departed Emergency Room Herminiavlad Cooney [facility] 07/28/14 7:19pm Departed Emergency Room Herminiavlad Cooney [facility] 07/28/14 4:19pm Departed Emergency Room Herminiavlad Cooney [facility] 07/26/14 3:57pm Departed Emergency Room Herminia B. [facility] 07/18/14 7:47am Departed Emergency Room Herminiavlad Cooney [facility] 07/03/14 8:25am Departed Emergency Room Herminiavlad Cooney [facility] 06/05/14 12:06pm Departed Emergency Room Herminia B. [facility] 05/16/14 11:13am Departed Emergency Room Herminia B. [facility] 05/11/14 8:24am Departed Emergency Room Herminia B. [facility] 05/08/14 7:22am Departed Emergency Room Herminia B. [facility] 05/04/14 11:11am Departed Emergency Room Herminia B. [facility] 04/27/14 11:11am Departed Emergency Room Herminiavlad Cooney [facility] 04/23/14 9:41am Departed Emergency Room Herminia B. [facility] 04/07/14 12:34pm Departed Emergency Room Herminia B. [facility] 03/27/14 10:38am Departed Emergency Room Herminia B. [facility] 03/15/14 12:11pm Departed Emergency Room [facility] 03/02/14 10:49am Departed Emergency Room Herminia . [facility] 01/16/14 8:33am
--- OUTSIDE RECORDS SUMMARY | 2017-01-06 02:17 | XMS REPORT | Continuity of Care Document ---
Author Author [facility] Organization [facility] Address Unknown Phone Unavailable Support Name Relationship Address Phone VICTORIANO STANLEY M.D. Caregiver [employer] [address] [place] [address] PINO FAULKNER Next Of Kin [address] [place] [address] CELL Insurance Providers Payer Name Policy Number [...] Departed Emergency Room [facility] 04/23/14 9:41am Departed Emergency Room [facility] 04/07/14 12:34pm Departed Emergency Room [facility] 03/27/14 10:38am Departed Emergency Room Herminia BJosh Eros [facility] 03/15/14 12:11pm Departed Emergency Room Herminia BJosh Eros [facility] 03/02/14 10:49am Departed Emergency Room Herminia BJosh Eros [facility] 01/16/14 8:33am Departed Emergency Room Herminia BJosh Eros [facility] 12/20/13 12:20pm Departed Emergency Room Herminia BJosh Eros [facility] 12/08/13 12:38pm Departed Emergency Room Herminia BJosh Eros [facility] 12/01/13 5:06pm Departed Emergency Room Herminia BJosh Eros [facility] 11/30/13 12:40pm Departed Emergency Room Herminia BJosh Eros [facility] 11/01/13 3:13pm Departed Emergency Room Herminia BJosh Eros [facility] 10/30/13 3:55pm Departed Emergency Room Herminia BJosh Eros [facility] 10/08/13 9:00pm Departed Emergency Room Herminia BJosh Reos [facility] 09/29/13 1:05pm Departed Emergency Room Herminia BJosh Eros [facility] 09/27/13 4:56pm Departed Emergency Room Herminia BJosh Eros [facility] 09/12/13 8:17am Departed Emergency Room Herminia BJosh Eros [facility] 08/24/13 10:10am Departed Emergency Room Herminia BJosh Eros [facility] 08/04/13 5:24pm Departed Emergency Room Herminia BJosh Eros [facility] 08/02/13 1:19pm Departed Emergency Room Herminia B. E[facility] 08/01/13 12:56pm Departed Emergency Room Herminia B. E[facility] 07/06/13 7:59am Departed Emergency Room Herminia B. E[facility] 06/29/13 6:55pm Departed Emergency Room Herminia BJosh [facility] 06/18/13 9:18am Departed Emergency Room Herminia BJosh [facility] 06/16/13 4:13am Departed Emergency Room Herminia B. E[facility] 06/06/13 1:44pm Departed Emergency Room Herminia BJosh Cooney [facility] 05/05/13 3:52pm Departed Emergency Room Herminia B. [facility] 05/04/13 7:46pm Recent Diagnosis
--- OUTSIDE RECORDS SUMMARY | 2017-01-06 02:18 | XMS REPORT | Continuity of Care Document ---
Author Author [facility] Organization [facility] Address Unknown Phone Unavailable Support Name Relationship Address Phone RAFA GARCIA M.D. Caregiver [employer] [address] [place] [address] PINO FAULKNER Next Of Kin [address] [place] [address] CELL Insurance Providers Payer Name Policy Number Subscriber Name Relationship [facility]-Other [id number] Aleksandar Garcia 02 Problems Medical Problems Problem [...] Mg PO TWICE A DAY 08/19/14 Active Dzfacesjks-Ysasqcpqnbxqc-Tdhfx 1 Tab PO THREE TIMES A DAY [...] F (96.0 - 99.9) Temperature (Calculated Celsius) 36.69324 degrees C Temperature Source Oral Pulse Pulse [...] NONE SOURCE: URINE, CLEAN CATCH Urine Specific [place] September 28, 2014 12:00am >=1.030 1.005-1.030 SOURCE: [...] M.D. Gynecologic examination (procedure) completed 03/15/14 DUARTE SIANZ M.D. THER/PROPH/DIAG INJ SC/IM completed 03/27/14 VICTORIANO [...] Date/Time Departed Emergency Room [facility] 11/26/14 4:07pm Departed Emergency Room [facility] 11/03/14 5:04pm Departed Emergency Room [facility] 10/16/14 12:09pm Departed Emergency Room [facility] 09/28/14 3:12pm Departed Emergency Room [facility] 09/26/14 8:40am Departed Emergency Room [facility] 09/22/14 12:44pm Departed Emergency Room [facility] 09/09/14 2:10am Departed Emergency Room [facility] 09/07/14 7:13pm Departed Emergency Room [facility] 09/07/14 2:25pm Departed Emergency Room [facility] 09/03/14 2:13pm Departed Emergency Room [facility] 08/19/14 2:57am Departed Emergency Room [facility] 08/09/14 1:57pm Departed Emergency Room [facility] 07/30/14 8:44am Departed Emergency Room [facility] 07/28/14 7:19pm Departed Emergency Room [facility] 07/28/14 4:19pm Departed Emergency Room [facility] 07/26/14 3:57pm Departed Emergency Room [facility] 07/18/14 7:47am Departed Emergency Room [facility] 07/03/14 8:25am Departed Emergency Room [facility] 06/05/14 12:06pm Departed Emergency Room [facility] 05/16/14 11:13am Departed Emergency Room [facility] 05/11/14 8:24am Departed Emergency Room [facility] 05/08/14 7:22am Departed Emergency Room [facility] 05/04/14 11:11am Departed Emergency Room [facility] 04/27/14 11:11am Departed Emergency Room [facility] 04/23/14 9:41am Departed Emergency Room [facility] 04/07/14 12:34pm Departed Emergency Room [facility] 03/27/14 10:38am Departed Emergency Room [facility] 03/15/14 12:11pm Departed Emergency Room [facility] 03/02/14 10:49am Departed Emergency Room [facility] 01/16/14 8:33am Departed Emergency Room [facility] 12/20/13 12:20pm Departed Emergency Room [facility] 12/08/13 12:38pm Departed Emergency Room [facility] 12/01/13 5:06pm Departed Emergency Room [facility] 11/30/13 12:40pm
--- OUTSIDE RECORDS SUMMARY | 2017-01-06 02:18 | XMS REPORT | Continuity of Care Document ---
Author Author [facility] Organization [facility] Address Unknown Phone Unavailable Support Name Relationship Address Phone OMAR LIZ M.D. Caregiver [address] [place] [address] [address] [place] [address] PINO FAULKNER Next Of Kin [address] [place] [address] CELL Insurance Providers Payer Name Policy Number [...] - 99.9) 03/02/2014 10:51am Temperature (Calculated Celsius) 37.64224 degrees C 03/02/2014 10:51am Temperature Source Oral [...] Encounters Encounter Location Date/Time Departed Emergency Room [facility] 03/02/14 10:49am Departed Emergency Room [facility] 01/16/14 8:33am Departed Emergency Room [facility] 12/20/13 12:20pm Departed Emergency Room [facility] 12/08/13 12:38pm Departed Emergency Room [facility] 12/01/13 5:06pm Departed Emergency Room [facility] 11/30/13 12:40pm Departed Emergency Room [facility] 11/01/13 3:13pm Departed Emergency Room [facility] 10/30/13 3:55pm Departed Emergency Room [facility] 10/08/13 9:00pm Departed Emergency Room [facility] 09/29/13 1:05pm Departed Emergency Room [facility] 09/27/13 4:56pm Departed Emergency Room [facility] 09/12/13 8:17am Departed Emergency Room [facility] 08/24/13 10:10am Departed Emergency Room [facility] 08/04/13 5:24pm Departed Emergency Room [facility] 08/02/13 1:19pm [facility] 08/01/13 12:56pm [facility] 07/06/13 7:59am [facility] 06/29/13 6:55pm [facility] 06/18/13 9:18am [facility] 06/16/13 4:13am Departed Emergency Room [place] [facility] 06/06/13 1:44pm [facility] 05/05/13 3:52pm [facility] 05/04/13 7:46pm Departed Emergency Room [facility] 04/07/13 11:59pm Departed Emergency Room [facility] 04/04/13 5:09am [facility] 04/03/13 9:52pm Recent Diagnosis
--- OUTSIDE RECORDS SUMMARY | 2017-01-06 02:18 | XMS REPORT | Continuity of Care Document ---
Author Author [facility] Organization [facility] Address Unknown Phone Unavailable Support Name Relationship Address Phone VICTORIANO STANLEY M.D. Caregiver [employer] [address] [place], [place] [id number] PINO FAULKNER Next Of Kin [address] [place] [address] CELL Insurance Providers Payer Name Policy Number [...] M.D. THER/PROPH/DIAG INJ SC/IM completed 11/30/13 VICTORIANO TSANLEY M.D. THER/PROPH/DIAG INJ SC/IM completed 11/30/13 VICTORIANO [...] Encounters Encounter Location Date/Time Departed Emergency Room [facility] 05/08/14 7:22am Departed Emergency Room [facility] 05/04/14 11:11am Departed Emergency Room [facility] 04/27/14 11:11am Departed Emergency Room [facility] 04/23/14 9:41am Departed Emergency Room [facility] 04/07/14 12:34pm Departed Emergency Room [facility] 03/27/14 10:38am Departed Emergency Room [facility] 03/15/14 12:11pm Departed Emergency Room [facility] 03/02/14 10:49am Departed Emergency Room [facility] 01/16/14 8:33am Departed Emergency Room [facility] 12/20/13 12:20pm Departed Emergency Room [facility] 12/08/13 12:38pm [facility] 12/01/13 5:06pm Departed Emergency Room [facility] 11/30/13 12:40pm Departed Emergency Room [facility] 11/01/13 3:13pm [facility] 10/30/13 3:55pm [facility] 10/08/13 9:00pm Departed Emergency Room [facility] 09/29/13 1:05pm [facility] 09/27/13 4:56pm Departed Emergency Room [facility] 09/12/13 8:17am [facility] 08/24/13 10:10am [facility] 08/04/13 5:24pm [facility] 08/02/13 1:19pm [facility] 08/01/13 12:56pm [facility] 07/06/13 7:59am Departed Emergency Room [facility] 06/29/13 6:55pm Departed Emergency Room [facility] 06/18/13 9:18am Departed Emergency Room [facility] 06/16/13 4:13am Departed Emergency Room [facility] 06/06/13 1:44pm Recent Diagnosis Migraine
--- OUTSIDE RECORDS SUMMARY | 2017-01-06 02:18 | XMS REPORT | Continuity of Care Document ---
Author Author [facility] Organization [facility] Address Unknown Phone Unavailable Support Name Relationship Address Phone RAFA GARCIA M.D. Caregiver [employer] [address] [place] [address] PINO FAULKNER Next Of Kin [address] [place] [address] CELL Insurance Providers Payer Name Policy Number Subscriber Name Relationship [facility] [id number] Aleksandar Garcia 02 Chief Complaint and Reason for Visit Chief Complaint Abscess Reason for Visit [id number] Problems Medical Problems Problem Onset Date Status [...] F (96.0 - 99.9) Temperature (Calculated Celsius) 36.22989 degrees C Temperature Source Oral Pulse Pulse [...] NONE SOURCE: URINE, CLEAN CATCH Urine Specific [place] September 28, 2014 12:00am >=1.030 1.005-1.030 SOURCE: [...] SAINZ M.D. THER/PROPH/DIAG INJ SC/IM completed [facility]13[facility]DIAG INJ [facility]/IM completed 01/13/15 KORIN [...] Encounters Encounter Location Date/Time Departed Emergency Room [facility] 04/01/15 4:40am Departed Emergency Room [facility] 03/30/15 1:50am Departed Emergency Room [facility] 03/13/15 10:50am Departed Emergency Room [facility] 02/13/15 7:40am Departed Emergency Room [facility] 01/15/15 10:42am Departed Emergency Room [facility] 01/13/15 1:49pm Departed Emergency Room [facility] 01/12/15 1:08am Departed Emergency Room [facility] 01/03/15 8:41am Departed Emergency Room [facility] 12/01/14 10:41pm Departed Emergency Room [facility] 11/30/14 10:32am Departed Emergency Room [facility] 11/27/14 12:57pm Departed Emergency Room [facility] 11/26/14 4:07pm Departed Emergency Room [facility] 11/03/14 5:04pm Departed Emergency Room [facility] 10/16/14 12:09pm Departed Emergency Room [facility] 09/28/14 3:12pm Departed Emergency Room [facility] 09/26/14 8:40am Departed Emergency Room [facility] 09/22/14 12:44pm Departed Emergency Room [facility] 09/09/14 2:10am Departed Emergency Room [facility] 09/07/14 7:13pm Departed Emergency Room [facility] 09/07/14 2:25pm Departed Emergency Room [facility] 09/03/14 2:13pm Departed Emergency Room [facility] 08/19/14 2:57am Departed Emergency Room [facility] 08/09/14 1:57pm Departed Emergency Room [facility] 07/30/14 8:44am Departed Emergency Room [facility] 07/28/14 7:19pm Departed Emergency Room [facility] 07/28/14 4:19pm Departed Emergency Room [facility] 07/26/14 3:57pm Departed Emergency Room [facility] 07/18/14 7:47am Departed Emergency Room [facility] Josh [facility] 07/03/14 8:25am Departed Emergency Room [facility] 06/05/14 12:06pm Departed Emergency Room [facility] 05/16/14 11:13am Departed Emergency Room [facility] 05/11/14 8:24am Departed Emergency Room [facility] 05/08/14 7:22am Departed Emergency Room [facility] Co[facility] 05/04/14 11:11am Departed Emergency Room [facility] 04/27/14 11:11am Departed Emergency Room [facility] 04/23/14 9:41am Departed Emergency Room [facility] 04/07/14 12:34pm Recent Diagnosis
--- OUTSIDE RECORDS SUMMARY | 2017-01-06 02:19 | XMS REPORT | Continuity of Care Document ---
Author Author [facility] Organization [facility] Address Unknown Phone Unavailable Support Name Relationship Address Phone RAFA GARCIA M.D. Caregiver [employer] [address] [place] [address] PINO FAULKNER Next Of Kin [address] [place] [address] CELL Insurance Providers Payer Name Policy Number [...] Encounters Encounter Location Date/Time Registered Emergency Room [facility] 06/05/14 12:06pm Departed Emergency Room [facility] 05/16/14 11:13am Departed Emergency Room [facility] 05/11/14 8:24am Departed Emergency Room [facility] 05/08/14 7:22am Departed Emergency Room [facility] 05/04/14 11:11am Departed Emergency Room [facility] 04/27/14 11:11am Departed Emergency Room [facility] 04/23/14 9:41am Departed Emergency Room [facility] 04/07/14 12:34pm [facility] 10/08/13 9:00pm Departed Emergency Room [facility] 09/29/13 1:05pm Departed Emergency Room [place] [facility] 09/27/13 4:56pm Departed Emergency Room [place] [facility] 09/12/13 8:17am Departed Emergency Room [facility] 08/24/13 10:10am Departed Emergency Room [place] [facility] 08/04/13 5:24pm Departed Emergency [facility] 08/02/13 1:19pm Departed Emergency [facility] 08/01/13 12:56pm Departed Emergency [facility] 07/06/13 7:59am Departed Emergency Room [facility] 06/29/13 6:55pm Departed Emergency Room [facility] 06/18/13 9:18am Departed Emergency Room [facility] 06/16/13 4:13am Departed Emergency [facility] 06/06/13 1:44pm Recent Diagnosis
--- OUTSIDE RECORDS SUMMARY | 2017-01-06 02:19 | XMS REPORT | Continuity of Care Document ---
Author Author [facility] Organization [facility] Address Unknown Phone Unavailable Support Name Relationship Address Phone LILA URIBE M.D. Caregiver [address] [place] [address] PINO FAULKNER Next Of Kin [address] [place] [address] CELL Insurance Providers Payer Name Policy Number Subscriber Name Relationship [facility]-Other [id number] Aleksandar Garcia 02 Chief Complaint and Reason for Visit Chief Complaint Ankle Pain Reason for Visit [id number] Problems Medical Problems Problem Onset Date Status [...] F (96.0 - 99.9) Temperature (Calculated Celsius) 36.89668 degrees C Temperature Source Oral Pulse Pulse [...] SOURCE: URINE, CLEAN CATCH Urine Specific [place] September 28, 2014 12:00am >=1.030 1.005-1.030 SOURCE: [...] Encounters Encounter Location Date/Time Departed Emergency Room [facility] 03/13/15 10:50am Departed Emergency Room [facility] 02/13/15 7:40am Departed Emergency Room [facility] 01/15/15 10:42am Departed Emergency Room [facility] 01/13/15 1:49pm Departed Emergency Room [facility] 01/12/15 1:08am Departed Emergency Room [facility] 01/03/15 8:41am Departed Emergency Room [facility] 12/01/14 10:41pm Departed Emergency Room [facility] 11/30/14 10:32am Departed Emergency Room [facility] 11/27/14 12:57pm Departed Emergency Room [facility] Co[facility] 11/26/14 4:07pm Departed Emergency Room [facility] 11/03/14 5:04pm Departed Emergency Room [facility] 10/16/14 12:09pm Departed Emergency Room [facility] B[facility] 09/28/14 3:12pm Departed Emergency Room [facility] 09/26/14 8:40am Departed Emergency Room [facility] 09/22/14 12:44pm Departed Emergency Room [facility] 09/09/14 2:10am Departed Emergency Room [facility] 09/07/14 7:13pm Departed Emergency Room [facility] 09/07/14 2:25pm Departed Emergency Room [facility] 09/03/14 2:13pm Departed Emergency Room [facility] 08/19/14 2:57am Departed Emergency Room [facility] 08/09/14 1:57pm Departed Emergency Room [facility] 07/30/14 8:44am Departed Emergency Room [facility] 07/28/14 7:19pm Departed Emergency Room [facility] 07/28/14 4:19pm Departed Emergency Room [facility] 07/26/14 3:57pm Departed Emergency Room [facility] Josh [facility] 07/18/14 7:47am [facility] 07/03/14 8:25am Departed Emergency Room Herm[facility] Josh [facility] 06/05/14 12:06pm [facility] 05/16/14 11:13am Departed Emergency Room [facility] 05/11/14 8:24am Departed Emergency Room [facility] 05/08/14 7:22am Departed Emergency Room [facility] 05/04/14 11:11am Departed Emergency Room [facility] 04/27/14 11:11am Departed Emergency Room [facility] 04/23/14 9:41am Departed Emergency Room [facility] 04/07/14 12:34pm Departed Emergency Room [facility] 03/27/14 10:38am Departed Emergency Room [facility] 03/15/14 12:11pm Recent Diagnosis
--- OUTSIDE RECORDS SUMMARY | 2017-01-06 02:19 | XMS REPORT | Continuity of Care Document ---
Author Author [facility] Organization [facility] Address Unknown Phone Unavailable Support Name Relationship Address Phone DUARTE SAINZ M.D. Caregiver [employer] [address] [place] [address] PINO FAULKNER Next Of Kin [address] [place] [address] CELL Insurance Providers Payer Name Policy Number [...] [id number] [id number] [id number] 15 Qty 07/26/14 Active Hjovowbadc-Koqfrpldesqus-Hkynq 1 Tab PO THREE TIMES A DAY [...] F (96.0 - 99.9) Temperature (Calculated Celsius) 36.97133 degrees C Temperature Source Oral Pulse Pulse [...] COMMENT: 01SOURCE: URINE, CLEAN CATCH Urine Specific [place] March 15, 2014 1:15pm 1.015 1.005-1.030 SOURCE [...] Location Date/Time Departed Emergency Room [facility] 07/26/14 3:57pm Departed Emergency Room [facility] 07/18/14 7:47am Departed Emergency Room [facility] 07/03/14 8:25am Departed Emergency Room [facility] 06/05/14 12:06pm Departed Emergency Room [facility] 05/16/14 11:13am Departed Emergency Room [facility] 05/11/14 8:24am Departed Emergency Room [facility] 05/08/14 7:22am Departed Emergency Room [facility] 05/04/14 11:11am Departed Emergency Room [facility] 04/27/14 11:11am Departed Emergency Room [facility] 04/23/14 9:41am Departed Emergency Room [facility] 04/07/14 12:34pm Departed Emergency Room [facility] 03/27/14 10:38am Departed Emergency Room [facility] 03/15/14 12:11pm Departed Emergency Room [facility] 03/02/14 10:49am Departed Emergency Room [facility] 01/16/14 8:33am Departed Emergency Room [facility] 12/20/13 12:20pm Departed Emergency Room [facility] 12/08/13 12:38pm Departed Emergency Room [facility] 12/01/13 5:06pm Departed Emergency Room [facility] 11/30/13 12:40pm Departed Emergency Room [facility] 11/01/13 3:13pm Departed Emergency Room [facility] 10/30/13 3:55pm Departed Emergency Room [place] [facility] 10/08/13 9:00pm Departed Emergency Room [facility] 09/29/13 1:05pm Departed Emergency Room [facility] 09/27/13 4:56pm [facility] [place] [facility] 09/12[facility] 8:17am Dep[facility] Emergency Room [facility] 08/24/13 10:10am Departed Emergency Room [facility] 08/04/13 5:24pm Departed Emergency Room [facility] 08/02/13 1:19pm Departed Emergency Room [facility] 08/01/13 12:56pm Recent Diagnosis
--- OUTSIDE RECORDS SUMMARY | 2017-01-06 02:19 | XMS REPORT | Continuity of Care Document ---
Author Author [facility] Organization [facility] Address Unknown Phone Unavailable Support Name Relationship Address Phone DUARTE SAINZ M.D. Caregiver [employer] [address] [place] [address] PINO FAULKNER Next Of Kin [address] [place] [address] CELL Insurance Providers Payer Name Policy Number [...] Encounters Encounter Location Date/Time Departed Emergency Room [facility] 03/15/14 12:11pm Departed Emergency Room [facility] 03/02/14 10:49am Departed Emergency Room [facility] 01/16/14 8:33am Departed Emergency Room [facility] 12/20/13 12:20pm Departed Emergency Room [facility] 12/08/13 12:38pm Departed Emergency Room [facility] 12/01/13 5:06pm Departed Emergency Room [facility] 11/30/13 12:40pm Departed Emergency Room [facility] 11/01/13 3:13pm Departed Emergency Room [facility] 10/30/13 3:55pm Departed Emergency Room [facility] 10/08/13 9:00pm Departed Emergency Room [facility] 09/29/13 1:05pm Departed Emergency Room [facility] 09/27/13 4:56pm Departed Emergency Room [facility] 09/12/13 8:17am Departed Emergency Room [facility] 08/24/13 10:10am Departed Emergency Room [facility] 08/04/13 5:24pm Departed Emergency Room [facility] 08/02/13 1:19pm Departed Emergency Room [facility] 08/01/13 12:56pm Departed Emergency Room [facility] 07/06/13 7:59am Departed Emergency Room [facility] 06/29/13 6:55pm Departed Emergency Room [facility] 06/18/13 9:18am Departed Emergency Room [facility] 06/16/13 4:13am [facility] 06/06/13 1:44pm Departed [facility] Room [facility] 05/05/13 3:52pm Departed Emergency Room [facility] 05/04/13 7:46pm Departed Emergency Room [facility] 04/07/13 11:59pm Departed Emergency Room [facility] 04/04/13 5:09am Departed Emergency Room [facility] 04/03/13 9:52pm Recent Diagnosis
--- OUTSIDE RECORDS SUMMARY | 2017-01-06 02:19 | XMS REPORT | Continuity of Care Document ---
Author Author [facility] Organization [facility] Address Unknown Phone Unavailable Support Name Relationship Address Phone DUARTE SAINZ M.D. Caregiver [employer] [address] [place] [address] PINO FAULKNER Next Of Kin [address] [place] [address] CELL Insurance Providers Payer Name Policy Number Subscriber Name Relationship [facility] [id number] Aleksandar Garcia 02 Chief Complaint and Reason for Visit Chief Complaint Abscess Reason for Visit [id number] Problems Medical Problems Problem Onset Date Status [...] Mg PO TWICE A DAY 08/19/14 Active Mmbgptkxlw-Gmflszbiezcga-Tmady 1 Tab PO THREE TIMES A DAY [...] F (96.0 - 99.9) Temperature (Calculated Celsius) 36.78569 degrees C Temperature Source Oral Pulse Pulse [...] NONE SOURCE: URINE, CLEAN CATCH Urine Specific [place] September 28, 2014 12:00am >=1.030 1.005-1.030 SOURCE: [...] Date/Time Departed Emergency Room [facility] 12/01/14 10:41pm Departed Emergency Room [facility] 11/30/14 10:32am Departed Emergency Room [facility] 11/27/14 12:57pm Departed Emergency Room [facility] 11/26/14 4:07pm Departed Emergency Room [facility] 11/03/14 5:04pm Departed Emergency Room [facility] 10/16/14 12:09pm Departed Emergency Room [facility] 09/28/14 3:12pm Departed Emergency Room [facility] 09/26/14 8:40am Departed Emergency Room [facility] 09/22/14 12:44pm Departed Emergency Room [facility] 09/09/14 2:10am Departed Emergency Room [facility] 09/07/14 7:13pm Departed Emergency Room [facility] 09/07/14 2:25pm Departed Emergency Room [facility] 09/03/14 2:13pm Departed Emergency Room [facility] 08/19/14 2:57am Departed Emergency Room [facility] 08/09/14 1:57pm Departed Emergency Room [facility] 07/30/14 8:44am Departed Emergency Room [facility] 07/28/14 7:19pm Departed Emergency Room [facility] 07/28/14 4:19pm Departed Emergency Room [facility] 07/26/14 3:57pm Departed Emergency Room [facility] 07/18/14 7:47am Departed Emergency Room [facility] 07/03/14 8:25am Departed Emergency Room [facility] 06/05/14 12:06pm Departed Emergency Room [facility] 05/16/14 11:13am Departed Emergency Room [facility] 05/11/14 8:24am Departed Emergency Room [facility] 05/08/14 7:22am Departed Emergency Room [facility] 05/04/14 11:11am Departed Emergency Room [facility] 04/27/14 11:11am Departed Emergency Room [facility] 04/23/14 9:41am Departed Emergency Room [facility] 04/07/14 12:34pm Departed Emergency Room [facility] 03/27/14 10:38am Departed Emergency Room [facility] 03/15/14 12:11pm Departed Emergency Room [facility] 03/02/14 10:49am Departed Emergency Room [facility] 01/16/14 8:33am Departed Emergency Room [facility] 12/20/13 12:20pm Departed Emergency Room [facility] 12/08/13 12:38pm Recent Diagnosis
--- OUTSIDE RECORDS SUMMARY | 2017-01-06 02:19 | XMS REPORT | Continuity of Care Document ---
Author Author [facility] Organization [facility] Address Unknown Phone Unavailable Support Name Relationship Address Phone DUARTE SAINZ M.D. Caregiver [employer] [address], [address] [place] [address] PINO FAULKNER Next Of Kin [address] [place] [address] CELL Insurance Providers Payer Name Policy Number Subscriber Name Relationship Self Pay Insurance Wong Garcia 01 Self / Same As Patient Chief Complaint and Reason for Visit Chief Complaint Fall Reason for Visit [id number] Problems Medical Problems Problem Onset Date Status [...] Encounters Encounter Location Date/Time Departed Emergency Room [facility] 04/27/14 11:11am Departed Emergency Room [facility] 04/23/14 9:41am Departed Emergency Room [facility] 04/07/14 12:34pm Departed Emergency Room [facility] 03/27/14 10:38am Departed Emergency Room [facility] 03/15/14 12:11pm Departed Emergency Room [facility] 03/02/14 10:49am Departed Emergency Room [facility] Co[facility] 01/16/14 8:33am Departed Emergency Room [facility] 12/20/13 12:20pm Departed Emergency Room [facility] 12/08/13 12:38pm Departed Emergency Room [facility] 12/01/13 5:06pm Departed Emergency Room [facility] 11/30/13 12:40pm Departed Emergency Room [facility]Josh [facility] 11/01/13 3:13pm Departed Emergency Room [facility] 10/30/13 3:55pm Departed Emergency Room [facility] 10/08/13 9:00pm Departed Emergency Room [facility] 09/29/13 1:05pm Departed Emergency Room [facility] 09/27/13 4:56pm Departed Emergency Room [facility] 09/12/13 8:17am Departed Emergency Room [facility] 08/24/13 10:10am Departed Emergency Room [facility] 08/04/13 5:24pm Departed Emergency Room [facility] 08/02/13 1:19pm Departed Emergency Room [facility] 08/01/13 12:56pm Departed Emergency Room [facility]h [facility] 07/06/13 7:59am Departed Emergency Room [facility] 06/29/13 6:55pm Departed Emergency Room [facility] Thanh [facility] 06/18/13 9:18am Departed Emergency Room [facility] 06/16/13 4:13am Departed Emergency Room [facility] 06/06/13 1:44pm Departed Emergency Room [facility] 05/05/13 3:52pm Departed Emergency Room [facility] 05/04/13 7:46pm Recent Diagnosis
--- OUTSIDE RECORDS SUMMARY | 2017-01-06 02:20 | XMS REPORT | Continuity of Care Document ---
Author Author [facility] Organization [facility] Address Unknown Phone Unavailable Support Name Relationship Address Phone DUARTE SAINZ M.D. Caregiver [employer] [address] [place] [address] PINO FAULKNER Next Of Kin [address] [place] [address] CELL Insurance Providers Payer Name Policy Number Subscriber Name Relationship [facility] [id number] Aleksandar Garcia 02 Chief Complaint and Reason for Visit Chief Complaint Abscess Reason for Visit [id number] Problems Medical Problems Problem Onset Date Status [...] to 800mg 3x/day. Use Percocet instead of [place] for pain. Return to the ER on [...] F (96.0 - 99.9) Temperature (Calculated Celsius) 36.47825 degrees C Temperature Source Oral Pulse Pulse [...] NONE SOURCE: URINE, CLEAN CATCH Urine Specific [place] September 28, 2014 12:00am >=1.030 1.005-1.030 SOURCE: [...] Encounters Encounter Location Date/Time Departed Emergency Room [facility] 04/01/15 10:03pm Departed Emergency Room [facility] 04/01/15 4:40am Departed Emergency Room [facility] 03/30/15 1:50am Departed Emergency Room [facility] 03/13/15 10:50am Departed Emergency Room [facility] 02/13/15 7:40am Departed Emergency Room [facility] 01/15/15 10:42am Departed Emergency Room [facility] 01/13/15 1:49pm Departed Emergency Room [facility] 01/12/15 1:08am Departed Emergency Room [facility] 01/03/15 8:41am Departed Emergency Room [facility] 12/01/14 10:41pm Departed Emergency Room [facility] 11/30/14 10:32am Departed Emergency Room [facility] 11/27/14 12:57pm Departed Emergency Room [facility]h [facility] 11/26/14 4:07pm Departed Emergency Room Herminia[facility]lad Conoey [facility] 11/03/14 5:04pm Departed Emergency Room [facility] 10/16/14 12:09pm Departed Emergency Room [facility] 09/28/14 3:12pm Departed Emergency Room [facility]Josh [facility] 09/26/14 8:40am Departed Emergency Room [facility] 09/22/14 12:44pm Departed Emergency Room Herm[facility] Thanh [facility] 09/09/14 2:10am Departed Emergency Room [facility] 09/07/14 7:13pm Departed Emergency Room [facility] 09/07/14 2:25pm Departed Emergency Room [facility] 09/03/14 2:13pm Departed Emergency Room [facility] 08/19/14 2:57am Departed Emergency Room [facility] 08/09/14 1:57pm Departed Emergency Room [facility] 07/30/14 8:44am Departed Emergency Room [facility] 07/28/14 7:19pm Departed Emergency Room Herm[facility] Thanh [facility] 07/28/14 4:19pm Departed Emergency Room [facility] 07/26/14 3:57pm Departed Emergency Room [facility] 07/18/14 7:47am Departed Emergency Room [facility] 07/03/14 8:25am Departed Emergency Room [facility] 06/05/14 12:06pm [facility] 05[facility] 11:13am Departed Emergency Room [facility] 05/11/14 8:24am Departed Emergency Room [facility] 05/08/14 7:22am Departed Emergency Room [facility] 05/04/14 11:11am Departed Emergency Room [facility] 04/27/14 11:11am Departed Emergency Room [facility] 04/23/14 9:41am Departed Emergency Room [facility] 04/07/14 12:34pm Recent Diagnosis
--- OUTSIDE RECORDS SUMMARY | 2017-01-06 02:20 | XMS REPORT | Continuity of Care Document ---
Author Author [facility] Organization [facility] Address Unknown Phone Unavailable Support Name Relationship Address Phone DUARTE SAINZ M.D. Caregiver [employer] [address], [address] [place] [address] PINO FAULKNER Next Of Kin [address] [place] [address] CELL Insurance Providers Payer Name Policy Number Subscriber Name Relationship [facility] [id number] Aleksandar Garcia 02 Chief Complaint and Reason for Visit Chief Complaint Wrist Pain Reason for Visit [id number] Problems Medical Problems Problem Onset Date Status [...] F (96.0 - 99.9) Temperature (Calculated Celsius) 36.48178 degrees C Temperature Source Oral Pulse Pulse [...] N If applicable:TELEPHONE/VERBAL order by (other than EKSHIA Klein SOURCE: URINE, CLEAN CATCH Urine Epithelial [...] NONE SOURCE: URINE, CLEAN CATCH Urine Specific [place] September 28, 2014 12:00am >=1.030 1.005-1.030 SOURCE: [...] M.D. THER/PROPH/DIAG INJ SC/IM completed 05/08/14 VICTORIANO STALNEY M.D. THER/PROPH/DIAG INJ SC/IM completed 05/11/14 SHILA TIDWELL D.O. THER/PROPH/DIAG INJ SC/IM completed 05/16/14 RAFA GARCIA M.D. Encounters Encounter Location Date/Time Departed Emergency Room [facility] 10/16/14 12:09pm Departed Emergency Room [facility] 09/28/14 3:12pm Departed Emergency Room [facility] 09/26/14 8:40am Departed Emergency Room [facility] 09/22/14 12:44pm Departed Emergency Room [facility] 09/09/14 2:10am Departed Emergency Room [facility] 09/07/14 7:13pm Departed Emergency Room [facility] 09/07/14 2:25pm Departed Emergency Room [facility] 09/03/14 2:13pm Departed Emergency Room [facility] 08/19/14 2:57am Departed Emergency Room [facility] 08/09/14 1:57pm Departed Emergency Room [facility] 07/30/14 8:44am Departed Emergency Room [facility] 07/28/14 7:19pm Departed Emergency Room [facility] 07/28/14 4:19pm Departed Emergency Room [facility] 07/26/14 3:57pm Departed Emergency Room [facility] 07/18/14 7:47am Departed Emergency Room [facility] 07/03/14 8:25am Departed Emergency Room [facility] 06/05/14 12:06pm Departed Emergency Room [facility] 05/16/14 11:13am Departed Emergency Room [facility] 05/11/14 8:24am Departed Emergency Room [facility] 05/08/14 7:22am Departed Emergency Room [facility] 05/04/14 11:11am Departed Emergency Room [facility] 04/27/14 11:11am Departed Emergency Room [facility] 04/23/14 9:41am Departed Emergency Room [facility] 04/07/14 12:34pm Departed Emergency Room [facility] 03/27/14 10:38am Departed Emergency Room [facility] 03/15/14 12:11pm Departed Emergency Room [facility] 03/02/14 10:49am Departed Emergency Room [facility] 01/16/14 8:33am Departed Emergency Room [facility] 12/20/13 12:20pm Departed Emergency Room [facility] Josh [facility] 12/08/13 12:38pm Departed Emergency Room [facility] 12/01/13 5:06pm Departed Emergency Room [facility] 11/30/13 12:40pm Departed Emergency Room [facility] 11/01/13 3:13pm Departed Emergency Room [facility] 10/30/13 3:55pm Recent Diagnosis
--- OUTSIDE RECORDS SUMMARY | 2017-01-06 02:20 | XMS REPORT | Continuity of Care Document ---
Author Author [facility] Organization [facility] Address Unknown Phone Unavailable Support Name Relationship Address Phone LILA URIBE M.D. Caregiver [address] [place] [address] PINO FAULKNER Next Of Kin [address] [place] [address] CELL Insurance Providers Payer Name Policy Number Subscriber Name Relationship [facility] [id number] Aleksandar Garcia 02 Chief Complaint and Reason [...] F (96.0 - 99.9) Temperature (Calculated Celsius) 36.35437 degrees C Temperature Source Oral Pulse Pulse [...] NONE SOURCE: URINE, CLEAN CATCH Urine Specific [place] September 28, 2014 12:00am >=1.030 1.005-1.030 SOURCE: [...] Encounters Encounter Location Date/Time Departed Emergency Room [facility] 03/30/15 1:50am Departed Emergency Room [facility] 03/13/15 10:50am Departed Emergency Room [facility] 02/13/15 7:40am Departed Emergency Room [facility] 01/15/15 10:42am Departed Emergency Room [facility] 01/13/15 1:49pm Departed Emergency Room [facility] 01/12/15 1:08am Departed Emergency Room [facility] 01/03/15 8:41am Departed Emergency Room [facility] 12/01/14 10:41pm Departed Emergency Room [facility] 11/30/14 10:32am Departed Emergency Room [facility] 11/27/14 12:57pm Departed Emergency Room [facility] 11/26/14 4:07pm Departed Emergency Room [facility] 11/03/14 5:04pm Departed Emergency Room [facility] 10/16/14 12:09pm Departed Emergency Room [facility] 09/28/14 3:12pm Departed Emergency Room [facility] 09/26/14 8:40am Departed Emergency Room [facility] 09/22/14 12:44pm Departed Emergency Room [facility] 09/09/14 2:10am Departed Emergency Room [facility] 09/07/14 7:13pm Departed Emergency Room [facility] 09/07/14 2:25pm Departed Emergency Room [facility] 09/03/14 2:13pm Departed Emergency Room [facility] 08/19/14 2:57am Departed Emergency Room [facility] 08/09/14 1:57pm Departed Emergency Room [facility] 07/30/14 8:44am Departed Emergency Room [facility] 07/28/14 7:19pm [facility]arted [facility] 07/28/14 4:19pm Departed Emergency [facility] 07/26/14 3:57pm Departed Emergency Room [facility] 07/18/14 7:47am Departed Emergency Room Herminia Josh [facility] 07/03/14 8:25am Departed Emergency Room [facility] 06/05/14 12:06pm Departed Emergency Room [facility] 05/16/14 11:13am Departed Emergency Room [facility] 05/11/14 8:24am Departed Emergency Room Herminia Thanh [facility] 05/08/14 7:22am Departed Emergency Room [facility] 05/04/14 11:11am Departed Emergency Room [facility] 04/27/14 11:11am Departed Emergency Room [facility] 04/23/14 9:41am Departed Emergency Room [facility] 04/07/14 12:34pm Recent Diagnosis
--- OUTSIDE RECORDS SUMMARY | 2017-01-06 02:21 | XMS REPORT | Continuity of Care Document ---
Author Author [facility] Organization [facility] Address Unknown Phone Unavailable Support Name Relationship Address Phone VICTORIANO STANLEY M.D. Caregiver [employer] [address] [place] [address] PINO FAULKNER Next Of Kin [address] [place] [address] CELL Insurance Providers Payer Name Policy Number Subscriber Name Relationship [facility] [id number] Nicholas Garcia 02 Chief Complaint and Reason for Visit Chief Complaint Elbow Pain Reason for Visit [id number] Pain elbow Problems Medical Problems Problem Onset [...] F (96.0 - 99.9) Temperature (Calculated Celsius) 36.57272 degrees C Temperature Source Oral Pulse Pulse [...] COMMENT: 01SOURCE: URINE, CLEAN CATCH Urine Specific [place] March 15, 2014 1:15pm 1.015 1.005-1.030 SOURCE [...] Encounter Location Date/Time Departed Emergency Room [facility] 09/22/14 12:44pm Departed Emergency Room [facility] 09/09/14 2:10am Departed Emergency Room [facility] 09/07/14 7:13pm Departed Emergency Room [facility] 09/07/14 2:25pm Departed Emergency Room [facility] 09/03/14 2:13pm Departed Emergency Room [facility] 08/19/14 2:57am Departed Emergency Room [facility] 08/09/14 1:57pm Departed Emergency Room [facility] 07/30/14 8:44am Departed Emergency Room [facility] 07/28/14 7:19pm Departed Emergency Room [facility] 07/28/14 4:19pm Departed Emergency Room [facility] 07/26/14 3:57pm Departed Emergency Room [facility] 07/18/14 7:47am Departed Emergency Room [facility] 07/03/14 8:25am Departed Emergency Room [facility] 06/05/14 12:06pm Departed Emergency Room [facility] 05/16/14 11:13am Departed Emergency Room [facility] 05/11/14 8:24am Departed Emergency Room [facility] 05/08/14 7:22am Departed Emergency Room [facility] 05/04/14 11:11am Departed Emergency Room [facility] 04/27/14 11:11am Departed Emergency Room [facility] 04/23/14 9:41am Departed Emergency Room [facility] 04/07/14 12:34pm Departed Emergency Room [facility] 03/27/14 10:38am Departed Emergency Room [facility] 03/15/14 12:11pm Departed Emergency Room [facility] 03/02/14 10:49am Departed Emergency Room [facility] 01/16/14 8:33am Departed Emergency Room [facility] 12/20/13 12:20pm Departed Emergency Room [facility] 12/08/13 12:38pm Departed Emergency Room [facility] 12/01/13 5:06pm Departed Emergency Room [facility] 11/30/13 12:40pm Departed Emergency Room [facility] 11/01/13 3:13pm Departed Emergency Room [facility] 10/30/13 3:55pm Departed Emergency Room [facility] 10/08/13 9:00pm Departed Emergency Room [facility] 09/29/13 1:05pm Departed Emergency Room [facility] 09/27/13 4:56pm Recent Diagnosis
--- OUTSIDE RECORDS SUMMARY | 2017-01-06 02:21 | XMS REPORT | Continuity of Care Document ---
Author Author [facility] Organization [facility] Address Unknown Phone Unavailable Support Name Relationship Address Phone VICTORIANO STANLEY M.D. Caregiver [employer] [address] [place] [id number] PINO FAULKNER Next Of Kin [address] [place] [address] CELL Insurance Providers Payer Name Policy Number [...] F (96.0 - 99.9) Temperature (Calculated Celsius) 36.32856 degrees C Temperature Source Oral Pulse Pulse [...] COMMENT: 01SOURCE: URINE, CLEAN CATCH Urine Specific [place] March 15, 2014 1:15pm 1.015 1.005-1.030 SOURCE [...] Encounters Encounter Location Date/Time Departed Emergency Room [facility] 09/07/14 7:13pm Departed Emergency Room [facility] 09/07/14 2:25pm Departed Emergency Room [facility] 09/03/14 2:13pm Departed Emergency Room [facility] 08/19/14 2:57am Departed Emergency Room [facility] 08/09/14 1:57pm Departed Emergency Room [facility] 07/30/14 8:44am Departed Emergency Room [facility] 07/28/14 7:19pm Departed Emergency Room [facility] 07/28/14 4:19pm Departed Emergency Room [facility] 07/26/14 3:57pm Departed Emergency Room [facility] 07/18/14 7:47am Departed Emergency Room [facility] 07/03/14 8:25am Departed Emergency Room [facility] 06/05/14 12:06pm Departed Emergency Room [facility] 05/16/14 11:13am Departed Emergency Room [facility] 05/11/14 8:24am Departed Emergency Room [facility] 05/08/14 7:22am Departed Emergency Room [facility] 05/04/14 11:11am Departed Emergency Room [facility] 04/27/14 11:11am Departed Emergency Room [facility] 04/23/14 9:41am Departed Emergency Room [facility] 04/07/14 12:34pm Departed Emergency Room [facility] 03/27/14 10:38am Departed Emergency Room [facility] 03/15/14 12:11pm Departed Emergency Room [facility] 03/02/14 10:49am Departed Emergency Room [facility] 01/16/14 8:33am Departed Emergency Room [facility] 12/20/13 12:20pm Departed Emergency Room [place] [facility] 12/08/13 12:38pm [facility] 12/01/13 5:06pm Departed Emergency Room [facility] 11/30/13 12:40pm [facility] 11/01/13 3:13pm [facility] 10/30/13 3:55pm Departed Emergency Room [place] [facility] 10/08/13 9:00pm Departed Emergency Room [place] [facility] 09/29/13 1:05pm [facility] 09/27/13 4:56pm [facility] 09/12/13 8:17am Recent Diagnosis Otitis media acute
--- OUTSIDE RECORDS SUMMARY | 2017-01-06 02:21 | XMS REPORT | Continuity of Care Document ---
Author Author [facility] Organization [facility] Address Unknown Phone Unavailable Support Name Relationship Address Phone DUARTE SAINZ M.D. Caregiver [employer] [address] [place] [address] PINO FAULKNER Next Of Kin [address] [place] [address] CELL Insurance Providers Payer Name Policy Number Subscriber Name Relationship [facility] [id number] Nicholas Garcia 02 Chief Complaint and Reason [...] F (96.0 - 99.9) Temperature (Calculated Celsius) 36.46352 degrees C Temperature Source Oral Pulse Pulse [...] COMMENT: SOURCE: URINE, CLEAN CATCH Urine Specific [place] September 26, 2014 9:30am >=1.030 1.005-1.030 SOURCE: [...] M.D. THER/PROPH/DIAG INJ IV PUSH completed 03/15/14 DUATRE SAINZ M.D. TX/PRO/DX INJ NEW DRUG ADDON [...] [facility] 09/26/14 8:40am Departed Emergency Room [facility] 09/22/14 12:44pm Departed Emergency Room [facility] 09/09/14 2:10am Departed Emergency Room [facility] 09/07/14 7:13pm Departed Emergency Room [facility] 09/07/14 2:25pm Departed Emergency Room [facility] 09/03/14 2:13pm Departed Emergency Room [facility] 08/19/14 2:57am Departed Emergency Room [facility] 08/09/14 1:57pm Departed Emergency Room [facility] 07/30/14 8:44am Departed Emergency Room [facility] 07/28/14 7:19pm Departed Emergency Room [facility] 07/28/14 4:19pm Departed Emergency Room [facility] 07/26/14 3:57pm Departed Emergency Room [facility] 07/18/14 7:47am Departed Emergency Room [facility] 07/03/14 8:25am Departed Emergency Room [facility] 06/05/14 12:06pm Departed Emergency Room [facility] 05/16/14 11:13am Departed Emergency Room [facility] 05/11/14 8:24am Departed Emergency Room [facility] 05/08/14 7:22am Departed Emergency Room [facility] 05/04/14 11:11am Departed Emergency Room [facility] 04/27/14 11:11am Departed Emergency Room [facility] 04/23/14 9:41am Departed Emergency Room [facility] 04/07/14 12:34pm Departed Emergency Room [facility] 03/27/14 10:38am Departed Emergency Room [facility] 03/15/14 12:11pm Departed Emergency Room [facility] 03/02/14 10:49am Departed Emergency Room [facility] 01/16/14 8:33am Departed Emergency Room [facility] 12/20/13 12:20pm Departed Emergency Room [facility] 12/08/13 12:38pm Departed Emergency Room [facility] 12/01/13 5:06pm Departed Emergency Room [facility] 11/30/13 12:40pm Departed Emergency Room [facility] 11/01/13 3:13pm [facility] 10/30/13 3:55pm Departed Emergency Room [facility] 10/08/13 9:00pm Departed Emergency Room [facility] 09/29/13 1:05pm Departed Emergency Room [facility] 09/27/13 4:56pm Recent Diagnosis
--- OUTSIDE RECORDS SUMMARY | 2017-01-06 02:21 | XMS REPORT | Continuity of Care Document ---
Author Author [facility] Organization [facility] Address Unknown Phone Unavailable Support Name Relationship Address Phone VICTORIANO STANLEY M.D. Caregiver [employer] [address] [place] [address] PINO FAULKNER Next Of Kin [address] [place] [address] CELL Insurance Providers Payer Name Policy Number Subscriber Name Relationship State [facility] [id number] Wong Garcia 01 Self / Same As Patient [facility] [id number] Aleksandar Garcia 02 Chief Complaint and Reason for Visit Chief Complaint Headache Reason for Visit Headache [id number] Problems Medical Problems Problem Onset Date Status [...] DAY PRN SPASM 15 Qty 07/03/14 Discontinued Qddexjidto-Igahblgwqvkbz-Yzgvg 1 Tab PO THREE TIMES A DAY For MIGRAINE 10 Qty 11/03/14 Active Rsgzwhyisf-Ryspzjnfimdol-Dnseu 1 Tab PO Every 6 hours as [...] OR A NEUROLOGIST Dr. Solomon Waters MD [facility] [address], [address] [place], [place] [address] FAX:[phone] [facility] [address] , [address] [place] [address] Functional Status No functional status results. Allergies, [...] F (96.0 - 99.9) Temperature (Calculated Celsius) 36.04916 degrees C Temperature Source Oral Pulse Pulse [...] NONE SOURCE: URINE, CLEAN CATCH Urine Specific [place] September 28, 2014 12:00am >=1.030 1.005-1.030 SOURCE: [...] Medical Center 01/13/15 1:49pm Departed Emergency Room [facility] 01/12/15 1:08am Departed Emergency Room [facility] 01/03/15 8:41am Departed Emergency Room [facility] 12/01/14 10:41pm Departed Emergency Room [facility] 11/30/14 10:32am Departed Emergency Room [facility] 11/27/14 12:57pm Departed Emergency Room [facility] 11/26/14 4:07pm Departed Emergency Room [facility] 11/03/14 5:04pm Departed Emergency Room [facility] 10/16/14 12:09pm Departed Emergency Room [facility] 09/28/14 3:12pm Departed Emergency Room [facility] 09/26/14 8:40am Departed Emergency Room [facility] 09/22/14 12:44pm Departed Emergency Room [facility] 09/09/14 2:10am Departed Emergency Room [facility] 09/07/14 7:13pm Departed Emergency Room [facility] 09/07/14 2:25pm Departed Emergency Room [facility] 09/03/14 2:13pm Departed Emergency Room [facility] 08/19/14 2:57am Departed Emergency Room [facility] 08/09/14 1:57pm Departed Emergency Room [facility] 07/30/14 8:44am Departed Emergency Room [facility] 07/28/14 7:19pm Departed Emergency Room [facility] 07/28/14 4:19pm Departed Emergency Room [facility] 07/26/14 3:57pm Departed Emergency Room [facility] 07/18/14 7:47am Departed Emergency Room [facility] 07/03/14 8:25am Departed Emergency Room [facility] 06/05/14 12:06pm Departed Emergency Room [facility] 05/16/14 11:13am Departed Emergency Room [facility] 05/11/14 8:24am Departed Emergency Room [facility] 05/08/14 7:22am Departed Emergency Room [facility] 05/04/14 11:11am Departed Emergency Room [facility] 04/27/14 11:11am Departed Emergency Room [facility] 04/23/14 9:41am Departed Emergency Room [facility] 04/07/14 12:34pm Departed Emergency Room [facility] 03/27/14 10:38am Departed Emergency Room [facility] 03/15/14 12:11pm Departed Emergency Room [facility] 03/02/14 10:49am Departed Emergency Room [facility] 01/16/14 8:33am Recent Diagnosis
--- OUTSIDE RECORDS SUMMARY | 2017-01-06 02:22 | XMS REPORT | Continuity of Care Document ---
Author Author [facility] Organization [facility] Address Unknown Phone Unavailable Support Name Relationship Address Phone RAFA GARCIA M.D. Caregiver [employer] [address] [place] [address] PINO FAULKNER Next Of Kin [address] [place] [address] CELL Insurance Providers Payer Name Policy Number [...] Encounter Location Date/Time [facility] 11[facility]13am [facility] 05/11/14 8:24am Departed Emergency Room [facility] 05/08/14 7:22am Departed Emergency Room [facility] 05/04/14 11:11am Departed Emergency Room [facility] 04/27/14 11:11am Departed Emergency Room [facility] 04/23/14 9:41am Departed Emergency Room [facility] 04/07/14 12:34pm Departed Emergency Room [facility] 03/27/14 10:38am Departed Emergency Room [facility] 03/15/14 12:11pm Departed Emergency Room [facility] 03/02/14 10:49am Departed Emergency Room [facility] 01/16/14 8:33am Departed Emergency Room [facility] 12/20/13 12:20pm Departed Emergency Room [facility] 12/08/13 12:38pm Departed Emergency Room [facility] 12/01/13 5:06pm Departed Emergency Room [facility] 11/30/13 12:40pm Departed Emergency Room [facility] 11/01/13 3:13pm Departed Emergency Room [facility] 10/30/13 3:55pm Departed Emergency Room [facility] 10/08/13 9:00pm Departed Emergency Room [facility] 09/29/13 1:05pm Departed Emergency Room [facility] 09/27/13 4:56pm Departed Emergency Room [facility] 09/12/13 8:17am Departed Emergency Room [facility] 08/24/13 10:10am Departed Emergency Room [facility] 08/04/13 5:24pm Departed Emergency Room [facility] 08/02/13 1:19pm Departed Emergency Room [facility] 08/01/13 12:56pm Departed Emergency Room [facility] 07/06/13 7:59am Departed Emergency Room [facility] 06/29/13 6:55pm Departed Emergency Room [facility] 06/18/13 9:18am Departed Emergency Room [facility] 06/16/13 4:13am Departed Emergency Room [facility] 06/06/13 1:44pm Recent Diagnosis
--- OUTSIDE RECORDS SUMMARY | 2017-01-06 02:22 | XMS REPORT | Continuity of Care Document ---
Author Author [facility] Organization [facility] Address Unknown Phone Unavailable Support Name Relationship Address Phone RAFA GARCIA M.D. Caregiver [employer] [address] [place] [address] PINO FAULKNER Next Of Kin [address] [place] [address] CELL Insurance Providers Payer Name Policy Number Subscriber Name Relationship [facility] [id number] Aleksandar Garcia 02 Chief Complaint and Reason [...] Mg PO TWICE A DAY 08/19/14 Active Spvqqzauao-Rbazxtcrfdgku-Mlxhh 1 Tab PO THREE TIMES A DAY [...] F (96.0 - 99.9) Temperature (Calculated Celsius) 36.01807 degrees C Temperature Source Oral Pulse Pulse [...] NONE SOURCE: URINE, CLEAN CATCH Urine Specific [place] September 28, 2014 12:00am >=1.030 1.005-1.030 [...] SAINZ,DUARTE Khan THER/PROPH/DIAG INJ SC/IM completed 09/26/14 ALISTAIR,UDARTE Khan THER/PROPH/DIAG INJ IV PUSH completed 09/28/14 RAFA GARCIA M.D. TX/PRO/DX INJ NEW DRUG ADDON completed 09/28/14 RAFA GARICA M.D. TX/PRO/DX INJ NEW DRUG ADDON completed [...] Date/Time Departed Emergency Room [facility] 11/27/14 12:57pm Departed Emergency Room [facility] 11/26/14 4:07pm Departed Emergency Room [facility] 11/03/14 5:04pm Departed Emergency Room [facility] 10/16/14 12:09pm Departed Emergency Room [facility] 09/28/14 3:12pm Departed Emergency Room [facility] 09/26/14 8:40am Departed Emergency Room [facility] 09/22/14 12:44pm Departed Emergency Room [facility] 09/09/14 2:10am Departed Emergency Room [facility] 09/07/14 7:13pm Departed Emergency Room [facility] 09/07/14 2:25pm Departed Emergency Room [facility] 09/03/14 2:13pm Departed Emergency Room [facility] 08/19/14 2:57am Departed Emergency Room [facility] 08/09/14 1:57pm Departed Emergency Room [facility] 07/30/14 8:44am Departed Emergency Room [facility] 07/28/14 7:19pm Departed Emergency Room [facility] 07/28/14 4:19pm Departed Emergency Room [facility] 07/26/14 3:57pm Departed Emergency Room [facility] 07/18/14 7:47am Departed Emergency Room [facility] 07/03/14 8:25am Departed Emergency Room [facility] 06/05/14 12:06pm Departed Emergency Room [facility] 05/16/14 11:13am Departed Emergency Room [facility] 05/11/14 8:24am Departed Emergency Room [facility] 05/08/14 7:22am Departed Emergency Room [facility] 05/04/14 11:11am Departed Emergency Room [facility] 04/27/14 11:11am Departed Emergency Room [facility] 04/23/14 9:41am Departed Emergency Room [facility] 04/07/14 12:34pm Departed Emergency Room [facility] 03/27/14 10:38am [facility] 03/[facility]14 12:11pm Departed Emergency Room [facility] 03/02/14 10:49am Departed Emergency Room [facility] 01/16/14 8:33am Departed Emergency Room [facility] 12/20/13 12:20pm Departed Emergency Room [facility] 12/08/13 12:38pm Departed Emergency Room [facility] 12/01/13 5:06pm Departed Emergency Room [facility] 11/30/13 12:40pm Recent Diagnosis
--- OUTSIDE RECORDS SUMMARY | 2017-01-06 02:22 | XMS REPORT | Continuity of Care Document ---
Author Author [facility] Organization [facility] Address Unknown Phone Unavailable Support Name Relationship Address Phone VICTORIANO STANLEY M.D. Caregiver [employer] [address] [place] [address] PINO FAULKNER Next Of Kin [address] [place] [address] CELL Insurance Providers Payer Name Policy Number Subscriber Name Relationship [facility] [id number] Aleksandar Garcia 02 Chief Complaint and Reason [...] Mg PO TWICE A DAY 08/19/14 Active [id number] 1 Tab PO THREE TIMES A DAY [...] F (96.0 - 99.9) Temperature (Calculated Celsius) 37.35990 degrees C Temperature Source Oral Pulse Pulse [...] NONE SOURCE: URINE, CLEAN CATCH Urine Specific [place] September 28, 2014 12:00am >=1.030 1.005-1.030 SOURCE: [...] Encounters Encounter Location Date/Time Departed Emergency Room [facility] 11/03/14 5:04pm Departed Emergency Room [facility] 10/16/14 12:09pm Departed Emergency Room [facility] 09/28/14 3:12pm Departed Emergency Room [facility] 09/26/14 8:40am Departed Emergency Room [facility] 09/22/14 12:44pm Departed Emergency Room [facility] 09/09/14 2:10am Departed Emergency Room [facility] 09/07/14 7:13pm Departed Emergency Room [facility] 09/07/14 2:25pm Departed Emergency Room [facility] 09/03/14 2:13pm Departed Emergency Room [facility] 08/19/14 2:57am Departed Emergency Room [facility] Cooney [facility] 08/09/14 1:57pm Departed Emergency Room [facility]lad Cooney [facility] 07/30/14 8:44am Departed Emergency Room [facility]inia[facility]lad Cooney [facility] 07/28/14 7:19pm Departed Emergency Room Herminia BJosh Eros [facility] 07/28/14 4:19pm Departed Emergency Room [facility]lad Cooney [facility] 07/26/14 3:57pm Departed Emergency Room [facility]lad Cooney [facility] 07/18/14 7:47am Departed Emergency Room Herminia BJosh Eros [facility] 07/03/14 8:25am Departed Emergency Room Herminiavlad Cooney [facility] 06/05/14 12:06pm Departed Emergency Room Herminia BJosh E[facility] 05/16/14 11:13am Departed Emergency Room Herminia BJosh Eros [facility] 05/11/14 8:24am Departed Emergency Room [facility]inia[facility]lad Cooney [facility] 05/08/14 7:22am Departed Emergency Room [facility]inia[facility]lad Cooney [facility] 05/04/14 11:11am Departed Emergency Room [facility]inia[facility]lad Cooney [facility] 04/27/14 11:11am Departed Emergency Room [facility]inia[facility]lad Cooney [facility] 04/23/14 9:41am Departed Emergency Room Herminia Thanh [facility] 04/07/14 12:34pm Departed Emergency Room Herminia Thanh [facility] 03/27/14 10:38am Departed Emergency Room Herminia BJosh Eros [facility] 03/15/14 12:11pm Departed Emergency Room Herminia BJosh Eros [facility] 03/02/14 10:49am Departed Emergency Room Herminia B. Eros [facility] 01/16/14 8:33am Departed Emergency Room Herminia BJosh Eros [facility] 12/20/13 12:20pm Departed Emergency Room Herminia BJosh Cooney [facility] 12/08/13 12:38pm Departed Emergency Room [facility]inia[facility]lad Cooney [facility] 12/01/13 5:06pm Departed Emergency Room Herminia Cooney [facility] 11/30/13 12:40pm Recent Diagnosis
--- OUTSIDE RECORDS SUMMARY | 2017-01-06 02:23 | XMS REPORT | Continuity of Care Document ---
Author Author [facility] Organization [facility] Address Unknown Phone Unavailable Support Name Relationship Address Phone OMAR LIZ M.D. Caregiver [address] [place] [address] [address] [place] [id number] PINO FAULKNER Next Of Kin [address] [place] [address] CELL Insurance Providers Payer Name Policy Number [...] F (96.0 - 99.9) Temperature (Calculated Celsius) 36.18450 degrees C Temperature Source Oral Pulse Pulse [...] COMMENT: 01SOURCE: URINE, CLEAN CATCH Urine Specific [place] March 15, 2014 1:15pm 1.015 1.005-1.030 SOURCE [...] Encounters Encounter Location Date/Time Departed Emergency Room [facility] 08/09/14 1:57pm Departed Emergency Room [facility] 07/30/14 8:44am Departed Emergency Room [facility] 07/28/14 7:19pm Departed Emergency Room [facility] 07/28/14 4:19pm Departed Emergency Room [facility] 07/26/14 3:57pm Departed Emergency Room [facility] 07/18/14 7:47am Departed Emergency Room [facility] 07/03/14 8:25am Departed Emergency Room [facility] 06/05/14 12:06pm Departed Emergency Room [facility] 05/16/14 11:13am Departed Emergency Room [facility] 05/11/14 8:24am Departed Emergency Room [facility] 05/08/14 7:22am Departed Emergency Room [facility] 05/04/14 11:11am Departed Emergency Room [facility] 04/27/14 11:11am Departed Emergency Room [facility] 04/23/14 9:41am Departed Emergency Room [facility] 04/07/14 12:34pm Departed Emergency Room [facility] 03/27/14 10:38am Departed Emergency Room [facility] 03/15/14 12:11pm Departed Emergency Room [facility] 03/02/14 10:49am Departed Emergency Room [facility] 01/16/14 8:33am Departed Emergency Room [facility] 12/20/13 12:20pm Departed Emergency Room [facility] 12/08/13 12:38pm Departed Emergency Room [facility] 12/01/13 5:06pm Departed Emergency Room [facility] 11/30/13 12:40pm [facility] 11/01[facility] 3:13[facility] 10/30/13 3:55pm Departed Emergency Room [facility] 10/08/13 9:00pm Departed Emergency Room [facility] 09/29/13 1:05pm Departed Emergency Room [facility] 09/27/13 4:56pm Departed Emergency Room [facility] 09/12/13 8:17am Departed Emergency Room [facility] 08/24/13 10:10am Recent Diagnosis
--- OUTSIDE RECORDS SUMMARY | 2017-01-06 02:23 | XMS REPORT | Continuity of Care Document ---
Author Author [facility] Organization [facility] Address Unknown Phone Unavailable Support Name Relationship Address Phone DUARTE SAINZ M.D. Caregiver [employer] [address] [place] [address] PINO FAULKNER Next Of Kin [address] [place] [address] CELL Insurance Providers Payer Name Policy Number Subscriber Name Relationship Self Pay Insurance Wong Garcia 01 Self / Same As Patient Chief Complaint and Reason for Visit Chief Complaint Neck Injury Reason for Visit Headache [id number] Problems Medical Problems Problem Onset Date Status [...] F (96.0 - 99.9) Temperature (Calculated Celsius) 36.29464 degrees C Temperature Source Oral Pulse Pulse [...] COMMENT: 01SOURCE: URINE, CLEAN CATCH Urine Specific [place] March 15, 2014 1:15pm 1.015 1.005-1.030 SOURCE [...] Encounters Encounter Location Date/Time Departed Emergency Room [facility] 07/03/14 8:25am Departed Emergency Room [facility] 06/05/14 12:06pm Departed Emergency Room [facility] 05/16/14 11:13am Departed Emergency Room [facility] 05/11/14 8:24am Departed Emergency Room [facility] 05/08/14 7:22am Departed Emergency Room Herminia[facility]lad Cooney [facility] 05/04/14 11:11am Departed Emergency Room Herminia[facility]lad Cooney [facility] 04/27/14 11:11am Departed Emergency Room Herminiavlad Cooney [facility] 04/23/14 9:41am Departed Emergency Room Herminia BJosh Eros [facility] 04/07/14 12:34pm Departed Emergency Room Herminia BJosh Eros [facility] 03/27/14 10:38am Departed Emergency Room Herminia BJosh Eros [facility] 03/15/14 12:11pm Departed Emergency Room [facility] B. [facility] 03/02/14 10:49am Departed Emergency Room Herminia BJosh [facility] 01/16/14 8:33am Departed Emergency Room Herminia BJosh [facility] 12/20/13 12:20pm Departed Emergency Room Herminia YuJosh [facility] 12/08/13 12:38pm Departed Emergency Room Herminia YuJosh [facility] 12/01/13 5:06pm Departed Emergency Room [facility] B[facility] 11/30/13 12:40pm Departed Emergency Room Herminia Josh [facility] 11/01/13 3:13pm Departed Emergency Room Herminia Thanh [facility] 10/30/13 3:55pm Departed Emergency Room Herminia BJosh [facility] 10/08/13 9:00pm Departed Emergency Room Herminia Yu[facility] 09/29/13 1:05pm Departed Emergency Room Herminia BJosh [facility] 09/27/13 4:56pm Departed Emergency Room Herminia BJosh [facility] 09/12/13 8:17am [facility] 08/24/13 10:10am [facility] 08/04/13 5:24pm [facility] 08/02/13 1:19pm [facility] 08/01/13 12:56pm [facility] 07/06/13 7:59am Recent Diagnosis Headache
--- OUTSIDE RECORDS SUMMARY | 2017-01-06 02:23 | XMS REPORT | Continuity of Care Document ---
Author Author [facility] Organization [facility] Address Unknown Phone Unavailable Support Name Relationship Address Phone DUARTE SAINZ M.D. Caregiver [employer] [address] [place] [address] PINO FAULKNER Next Of Kin [address] [place] [address] CELL Insurance Providers Payer Name Policy Number [...] F (96.0 - 99.9) Temperature (Calculated Celsius) 36.15640 degrees C Temperature Source Oral Pulse Pulse [...] COMMENT: 01SOURCE: URINE, CLEAN CATCH Urine Specific [place] March 15, 2014 1:15pm 1.015 1.005-1.030 SOURCE [...] Encounter Location Date/Time Departed Emergency Room [facility] 09/09/14 2:10am Departed Emergency Room [facility] 09/07/14 7:13pm Departed Emergency Room [facility] 09/07/14 2:25pm Departed Emergency Room [facility] 09/03/14 2:13pm Departed Emergency Room [facility] 08/19/14 2:57am Departed Emergency Room [facility] 08/09/14 1:57pm Departed Emergency Room [facility] 07/30/14 8:44am Departed Emergency Room [facility] 07/28/14 7:19pm Departed Emergency Room [facility] 07/28/14 4:19pm Departed Emergency Room [facility] 07/26/14 3:57pm Departed Emergency Room [facility] 07/18/14 7:47am Departed Emergency Room [facility] 07/03/14 8:25am Departed Emergency Room [facility] 06/05/14 12:06pm Departed Emergency Room [facility] 05/16/14 11:13am Departed Emergency Room [facility] 05/11/14 8:24am Departed Emergency Room Herminia BJosh Eros [facility] 05/08/14 7:22am Departed Emergency Room Herminia BJosh Eros [facility] 05/04/14 11:11am Departed Emergency Room Herminia[facility]lad Cooney [facility] 04/27/14 11:11am Departed Emergency Room Herminia BJosh [facility] 04/23/14 9:41am Departed Emergency Room [facility]inia[facility]lad Cooney [facility] 04/07/14 12:34pm Departed Emergency Room Herminia BJosh [facility] 03/27/14 10:38am Departed Emergency Room Herminia BJosh [facility] 03/15/14 12:11pm Departed Emergency Room Herminia BJosh [facility] 03/02/14 10:49am Departed Emergency Room Herminia B. [facility] 01/16/14 8:33am [facility] 12/20/13 12:20pm Departed Emergency Room Herminia YuJosh [facility] 12/08/13 12:38pm Departed Emergency Room Herminia YuJosh [facility] 12/01/13 5:06pm [facility] 11/30/13 12:40pm [facility] 11/01/13 3:13pm Departed Emergency Room [facility] B. [facility] 10/30/13 3:55pm Departed Emergency Room Herminia YuJosh [facility] 10/08/13 9:00pm Departed Emergency Room Herminia Thanh [facility] 09/29/13 1:05pm [facility] 09/27/13 4:56pm Departed Emergency Room [facility] 09/12/13 8:17am Recent Diagnosis
--- OUTSIDE RECORDS SUMMARY | 2017-01-06 02:24 | XMS REPORT | Continuity of Care Document ---
Author Author [facility] Organization [facility] Address Unknown Phone Unavailable Support Name Relationship Address Phone DUARTE SAINZ M.D. Caregiver [employer] [address] [place] [address] PINO FAULKNER Next Of Kin [address] [place] [address] CELL Insurance Providers Payer Name Policy Number [...] F (96.0 - 99.9) Temperature (Calculated Celsius) 36.24496 degrees C Temperature Source Oral Pulse Pulse [...] COMMENT: 01SOURCE: URINE, CLEAN CATCH Urine Specific [place] March 15, 2014 1:15pm 1.015 1.005-1.030 SOURCE [...] Encounters Encounter Location Date/[facility] 7:47am Departed Emergency Room [facility] 07/03/14 8:25am Departed Emergency Room [facility] Co[facility] 06/05/14 12:06pm Departed Emergency Room [facility]inia[facility] Cooney [facility] 05/16/14 11:13am Departed Emergency Room Herminiavlad Cooney [facility] 05/11/14 8:24am Departed Emergency Room [facility]lad Cooney [facility] 05/08/14 7:22am Departed Emergency Room Herminia BJosh Eros [facility] 05/04/14 11:11am Departed Emergency Room [facility] Cooney [facility] 04/27/14 11:11am Departed Emergency Room [facility] B. [facility] 04/23/14 9:41am Departed Emergency Room Herminia BJosh [facility] 04/07/14 12:34pm Departed Emergency Room [facility]inia[facility]lad Cooney [facility] 03/27/14 10:38am Departed Emergency Room Herminia B. [facility] 03/15/14 12:11pm Departed Emergency Room Herminia BJosh [facility] 03/02/14 10:49am Departed Emergency Room Herminia BJosh [facility] 01/16/14 8:33am Departed Emergency Room Herminia B. [facility] 12/20/13 12:20pm Departed Emergency Room Herminia B. [facility] 12/08/13 12:38pm Departed Emergency Room Herminia B. [facility] 12/01/13 5:06pm Departed Emergency Room Herminia BJosh [facility] 11/30/13 12:40pm Departed Emergency Room Herminia BJosh [facility] 11/01/13 3:13pm Departed Emergency Room Herminia BJosh [facility] 10/30/13 3:55pm Departed Emergency Room Herminia BJosh [facility] 10/08/13 9:00pm [facility] 09/29/13 1:05pm Departed Emergency Room Herminia YuJosh [facility] 09/27/13 4:56pm Departed Emergency Room Herminia B. [facility] 09/12/13 8:17am [facility] 08/24/13 10:10am [facility] 08/04/13 5:24pm Departed Emergency Room Herminia B. [facility] 08/02/13 1:19pm [facility]/01[facility] 12:56pm Recent Diagnosis
--- OUTSIDE RECORDS SUMMARY | 2017-01-06 02:24 | XMS REPORT | Continuity of Care Document ---
Author Author [facility] Organization [facility] Address Unknown Phone Unavailable Support Name Relationship Address Phone VICTORIANO STANLEY M.D. Caregiver [employer] [address] [place], [place] [id number] PINO FAULKNER Next Of Kin [address] [place] [address] CELL Insurance Providers Payer Name Policy Number [...] F (96.0 - 99.9) Temperature (Calculated Celsius) 36.24045 degrees C Temperature Source Oral Pulse Pulse [...] COMMENT: 01SOURCE: URINE, CLEAN CATCH Urine Specific [place] March 15, 2014 1:15pm 1.015 1.005-1.030 SOURCE [...] Encounters Encounter Location Date/Time Departed Emergency Room [facility] 09/07/14 7:13pm Registered Emergency Room [facility] 09/07/14 2:25pm Departed Emergency Room [facility] 09/03/14 2:13pm Departed Emergency Room [facility] 08/19/14 2:57am Departed Emergency Room [facility] 08/09/14 1:57pm Departed Emergency Room [facility] 07/30/14 8:44am Departed Emergency Room [facility] 07/28/14 7:19pm Departed Emergency Room [facility] 07/28/14 4:19pm Departed Emergency Room [facility] 07/26/14 3:57pm Departed Emergency Room [facility] 07/18/14 7:47am Departed Emergency Room [facility] 07/03/14 8:25am Departed Emergency Room [facility] 06/05/14 12:06pm Departed Emergency Room [facility] 05/16/14 11:13am Departed Emergency Room [facility] 05/11/14 8:24am Departed Emergency Room [facility] 05/08/14 7:22am Departed Emergency Room [facility] 05/04/14 11:11am Departed Emergency Room [facility] 04/27/14 11:11am Departed Emergency Room [facility] 04/23/14 9:41am Departed Emergency Room [facility] 04/07/14 12:34pm Departed Emergency Room Herminia Thanh [facility] 03/27/14 10:38am Departed Emergency Room [facility] B. [facility] 03/15/14 12:11pm Departed Emergency Room Herminia Thanh [facility] 03/02/14 10:49am Departed Emergency Room Herminia Thanh [facility] 01/16/14 8:33am Departed Emergency Room Herminia Thanh [facility] 12/20/13 12:20pm Departed Emergency Room [facility] 12/08/13 12:38pm [facility] 12/01/13 5:06pm Departed Emergency Room [facility] 11/30/13 12:40pm Departed Emergency Room [facility] 11/01/13 3:13pm [facility] 10[facility]30/13 3:55pm [facility] 10/08/13 9:00pm Departed Emergency Room [facility] 09/29/13 1:05pm Departed Emergency Room [facility] 09/27/13 4:56pm Departed Emergency Room [facility] 09/12/13 8:17am Recent Diagnosis Otitis media acute
--- OUTSIDE RECORDS SUMMARY | 2017-01-06 02:24 | XMS REPORT | Continuity of Care Document ---
Author Author [facility] Organization [facility] Address Unknown Phone Unavailable Support Name Relationship Address Phone RAFA GARCIA M.D. Caregiver [employer] [address] [place] [address] PINO FAULKNER Next Of Kin [address] [place] [address] CELL Insurance Providers Payer Name Policy Number [...] F (96.0 - 99.9) Temperature (Calculated Celsius) 36.59754 degrees C Temperature Source Oral Pulse Pulse [...] COMMENT: 01SOURCE: URINE, CLEAN CATCH Urine Specific [place] March 15, 2014 1:15pm 1.015 1.005-1.030 SOURCE [...] Encounters Encounter Location Date/Time Departed Emergency Room [facility] 07/30/14 8:44am Departed Emergency Room [facility] 07/28/14 7:19pm Departed Emergency Room [facility] 07/28/14 4:19pm Departed Emergency Room [facility] 07/26/14 3:57pm Departed Emergency Room [facility] 07/18/14 7:47am Departed Emergency Room [facility] 07/03/14 8:25am Departed Emergency Room [facility] 06/05/14 12:06pm Departed Emergency Room [facility] 05/16/14 11:13am Departed Emergency Room [facility] 05/11/14 8:24am Departed Emergency Room [facility] 05/08/14 7:22am Departed Emergency Room [facility] 05/04/14 11:11am Departed Emergency Room [facility] 04/27/14 11:11am Departed Emergency Room [facility] 04/23/14 9:41am Departed Emergency Room [facility] 04/07/14 12:34pm Departed Emergency Room [facility] 03/27/14 10:38am Departed Emergency Room [facility] 03/15/14 12:11pm Departed Emergency Room [facility] 03/02/14 10:49am Departed Emergency Room [facility] 01/16/14 8:33am Departed Emergency Room [facility] 12/20/13 12:20pm Departed Emergency Room [facility] 12/08/13 12:38pm Departed Emergency Room Herm[facility] Thanh [facility] 12/01/13 5:06pm Departed Emergency Room [facility] B. [facility] 11/30/13 12:40pm Departed Emergency Room [facility] 11/01/13 3:13pm Departed Emergency Room [facility] 10/30/13 3:55pm Departed Emergency Room [facility] 10/08/13 9:00pm [facility] 09/29/13 1:05pm Departed Emergency Room [facility] 09/27/13 4:56pm Departed Emergency Room [facility] 09/12/13 8:17am Departed Emergency Room [facility] 08/24/13 10:10am Departed Emergency Room [facility] 08/04/13 5:24pm Departed Emergency Room [facility] 08/02/13 1:19pm Departed Emergency Room [facility] 08/01/13 12:56pm Recent Diagnosis
--- OUTSIDE RECORDS SUMMARY | 2017-01-06 02:24 | XMS REPORT | Continuity of Care Document ---
Author Author [facility] Organization [facility] Address Unknown Phone Unavailable Support Name Relationship Address Phone VICTORIANO STANLEY M.D. Caregiver [employer] [address] [place], [place] [id number] PINO FAULKNER Next Of Kin [address] [place] [address] [employer] Insurance Providers Payer Name Policy Number [...] F (96.0 - 99.9) Temperature (Calculated Celsius) [phone] degrees C Temperature Source Oral Pulse Pulse [...] COMMENT: 01SOURCE: URINE, CLEAN CATCH Urine Specific [place] March 15, 2014 1:15pm 1.015 1.005-1.030 SOURCE [...] Encounters Encounter Location Date/Time Departed Emergency Room [facility] 08/19/14 2:57am Departed Emergency Room [facility] 08/09/14 1:57pm Departed Emergency Room [facility] 07/30/14 8:44am Departed Emergency Room [facility] 07/28/14 7:19pm Departed Emergency Room [facility] 07/28/14 4:19pm Departed Emergency Room [facility] 07/26/14 3:57pm Departed Emergency Room [facility] 07/18/14 7:47am Departed Emergency Room [facility] 07/03/14 8:25am Departed Emergency Room [facility] 06/05/14 12:06pm Departed Emergency Room [facility] 05/16/14 11:13am Departed Emergency Room [facility] 05/11/14 8:24am Departed Emergency Room [facility] 05/08/14 7:22am Departed Emergency Room [facility] 05/04/14 11:11am Departed Emergency Room [facility] 04/27/14 11:11am Departed Emergency Room [facility] 04/23/14 9:41am Departed Emergency Room [facility] 04/07/14 12:34pm Departed Emergency Room [facility] 03/27/14 10:38am Departed Emergency Room [facility] 03/15/14 12:11pm Departed Emergency Room [facility] 03/02/14 10:49am Departed Emergency Room [facility] 01/16/14 8:33am Departed Emergency Room [facility] 12/20/13 12:20pm Departed Emergency Room [facility] 12/08/13 12:38pm Departed Emergency Room [facility] 12/01/13 5:06pm Departed Emergency Room [facility] 11/30/13 12:40pm Departed Emergency Room [facility] 11/01/13 3:13pm Departed Emergency Room [facility] 10/30/13 3:55pm Departed Emergency Room [facility] 10/08/13 9:00pm Departed Emergency Room [facility] 09/29/13 1:05pm Departed Emergency Room [facility] 09/27/13 4:56pm Departed Emergency Room [facility] 09/12/13 8:17am Departed Emergency Room [facility] 08/24/13 10:10am Recent Diagnosis
--- OUTSIDE RECORDS SUMMARY | 2017-01-06 02:24 | XMS REPORT | Continuity of Care Document ---
Author Author [facility] Organization [facility] Address Unknown Phone Unavailable Support Name Relationship Address Phone MEANS, LADY Mayberry M.D. Caregiver [facility] [address] [place] [address], [address] [place] [address] PINO FAULKNER Next Of Kin [address] [place] [address] CELL Insurance Providers Payer Name Policy Number Subscriber Name Relationship Self Pay Insurance Wong Garcia 01 Self / Same As Patient Chief Complaint and Reason for Visit Chief Complaint Elbow Pain Reason for Visit [id number] Problems Medical Problems Problem Onset Date Status [...] - 99.9) 05/04/2014 11:12am Temperature (Calculated Celsius) 37.12830 degrees C 05/04/2014 11:12am Temperature Source Oral [...] Location Date/Time Departed Emergency Room [facility] 05/04/14 11:11am Departed Emergency Room [facility] 04/27/14 11:11am Departed Emergency Room [facility] 04/23/14 9:41am Departed Emergency Room [facility] 04/07/14 12:34pm Departed Emergency Room [facility] 03/27/14 10:38am Departed Emergency Room [facility] BJosh Eros [facility] 03/15/14 12:11pm Departed Emergency Room [facility] 03/02/14 10:49am Departed Emergency Room [facility]Josh Eros [facility] 01/16/14 8:33am Departed Emergency Room [facility] BJosh Eros [facility] 12/20/13 12:20pm Departed Emergency Room [facility] BJosh Eros [facility] 12/08/13 12:38pm Departed Emergency Room [facility] BJosh Eros [facility] 12/01/13 5:06pm Departed Emergency Room [facility]Josh Eros [facility] 11/30/13 12:40pm Departed Emergency Room [facility] 11/01/13 3:13pm Departed Emergency Room [facility] BJosh Eros [facility] 10/30/13 3:55pm Departed Emergency Room [facility] 10/08/13 9:00pm Departed Emergency Room [facility] BJosh Eros [facility] 09/29/13 1:05pm Departed Emergency Room [facility] BJosh Eros [facility] 09/27/13 4:56pm Departed Emergency Room [facility] 09/12/13 8:17am Departed Emergency Room Herminia B. Eros [facility] 08/24/13 10:10am Departed Emergency Room [facility] B. Eros [facility] 08/04/13 5:24pm Departed Emergency Room [facility] 08/02/13 1:19pm Departed Emergency Room [facility] 08/01/13 12:56pm Departed Emergency Room [facility]inia[facility] Co[facility] 07/06/13 7:59am Departed Emergency Room [facility] BJosh Cooney [facility] 06/29/13 6:55pm Departed Emergency Room [facility] B. [facility] 06/18/13 9:18am Departed Emergency Room [facility] B. [facility] 06/16/13 4:13am Departed Emergency Room [facility] 06/06/13 1:44pm Departed Emergency [facility] 05/05/13 3:52pm Departed Emergency Room [facility] 05/04/13 7:46pm Recent Diagnosis
[2017-01-06 02:31] LABS: BASOPHILS % (AUTO) 0.3 % (0-2); EOSINOPHILS # (AUTO) 0.2 T/MM3 (0-0.5); EOSINOPHILS % (AUTO) 2.1 % (0-4); HCT - HEMATOCRIT 39.9 % (36-46); HGB - HEMOGLOBIN 13.7 GM/DL (12-16); IMMATURE GRANULOCYTE # (AUTO) 0.01 T/MM3 (0.00-0.03); IMMATURE GRANULOCYTE % (AUTO) 0.1 % (0.0-0.5); LYMPHOCYTES # (AUTO) 3.4 T/MM3 (1-4.8); LYMPHOCYTES % (AUTO) 35.4 % (23-45); MEAN CORPUSCULAR HGB 29.5 UUG (26-34); MEAN CORPUSCULAR HGB CONC(MCHC 34.3 GM/DL (31-37); MEAN CORPUSCULAR VOLUME 85.8 UM3 (80-100); MEAN PLATELET VOLUME 9.8 UM3 (9.4-12.4); MONOCYTES % (AUTO) 10.3 % (0-9.0); NEUTROPHILS #(AUTO)-ABSOLUTE 4.9 T/MM3 (1.8-7.7); NEUTROPHILS % (AUTO) 51.8 % (33-66); RED BLOOD COUNT 4.65 M/MM3 (4.00-5.20); WBC - WHITE BLOOD COUNT 9.5 T/MM3 (4.5-11.0)
--- NOTE | 2017-01-06 02:35 | NUR ---
UA PT AMBULATED TO THE BATHROOM. UA COLLECTED. SENT TO LAB
[2017-01-06] MEDS ORDERED: ESCI20TA PO (02:36)
[2017-01-06 02:37] LABS: ALBUMIN/GLOBULIN RATIO 1.4 RATIO (1.1-2.2); ALKALINE PHOSPHATASE 82 U/L (38-126); ALT (SGPT) 44 U/L (9-52); ANION GAP 9 MEQ/L (5-15); AST (SGOT) 14 U/L (14-36); BUN/CREATININE RATIO 11 RATIO (6-26); CALCIUM 9.4 MG/DL (8.4-10.2); CHLORIDE 108 MEQ/L (98-107); CO2 - CARBON DIOXIDE 24 MEQ/L (22-30); CREATININE 0.9 MG/DL (0.7-1.2); GLOMERULAR FILTRATION RATE 73; GLUCOSE 97 MG/DL (65-110); LIPASE 138 U/L (23-300); SODIUM 141 MEQ/L (134-144); TOTAL PROTEIN 6.9 G/DL (6.3-8.2)
[2017-01-06 02:53] LABS: BLOOD, URINE NEGATIVE (NEGATIVE); COLOR,URINE YELLOW (YELLOW); LEUKOCYTE ESTERASE ,URINE NEGATIVE (NEGATIVE); NITRITE,URINE NEGATIVE (NEGATIVE); UROBILINOGEN,URINE 0.2 EU/DL (NORMAL)
[2017-01-06] MEDS ORDERED: ONDANSETRON 4mg/2ml INJECTION IV ONE (03:00)
[2017-01-06] MEDS ORDERED: FENTANYL 100mcg/2ml INJECTION IV ONE ×2 (03:00→04:15)
[2017-01-06] MEDS ORDERED: NORMAL SALINE 1,000 ML IV ONE (03:00)
--- NOTE | 2017-01-06 03:23 | ERPDOC ---
Departure Disposition Decision Date: January 06, 2017 Disposition Decision Time: 04:12 Disposition: 01 DISCHARGED HOME, SELF-CARE Impression Impression Impression: Primary Impression: Abdominal pain Abdominal location: left upper quadrant Qualified Codes: R10.12 - Left upper quadrant pain Additional Impression: Acute gastroenteritis Severity: Moderate Condition: Improved Seen By: Physician only Referrals: MERRY LUCAS MD (Family) 2 Days Patient Instructions: Abdominal Pain (ED) Problems/Meds/Labs Reviewed?: Yes Medications reviewed and manag: Yes Follow up care ordered?: Yes Mental Status: Alert, Oriented Scripts Ondansetron (Zofran Odt) 4 Mg Tab.rapdis 4 MG PO Q4HR Y for NAUSEA &/OR VOMITING for 3 Days, #18 TAB 0 Refills Prov: ELIZABETH RAZO DO 01/06/17 Hydrocodone/Acetaminophen (Alpine 5-325 Tablet) 5-325 Tablet 1 TAB PO Q4HR Y for PAIN for 3 Days, #18 TAB 0 Refills Prov: ELIZABETH RAZO DO 01/06/17 HPI - Abdominal Pain General Chief Complaint: Abdominal Pain Stated Complaint: LEFT ABD PAIN Time Seen by Provider: 01:54 Source: patient History/Exam Limitations: no limitations HPI - Abdominal Pain Initial Comments 31 F presents to the ED with the chief complaint of abdominal pain. Patient noted onset of symptoms approximately 4 hours ago. Pain is located in the left upper quadrant without radiation. Pain is moderate to severe. Pain is sharp. Patient does not note any exacerbating or remitting factors. Patient has experienced "a couple" episodes of emesis and diarrhea which are both nonbloody and non-mucus containing. No other complaints or associated symptoms. Patient denies any trauma, travel, poorly prepared food, or recent antibiotic use. She was at home when her symptoms began. Symptoms have been gradually progressive in nature since onset. Occurred At: home Onset: Gradual Allergies: Coded Allergies: tramadol (Verified Allergy, Severe, SEIZURE, 11/08/16) levofloxacin (Verified Allergy, Intermediate, RASH, 11/08/16) morphine (Verified Adverse Reaction, Mild, GI DISCOMFORT, 11/08/16) Past History Past Medical History GI: GERD, gallbladder disease, pancreatitis Neurological: seizures Psychological: anxiety, drug abuse Surgical History General: gallbladder Reproductive/: Joint: knee Family History Family History: Negative Family PMH: FOUND: other Vaccines Hx Influenza Vaccination: No Hx Pneumococcal Vaccination: No Social History Smoking Status: Current every day smoker Does patient use chewing tobac: No # of Packs/Tins per Day: 0.5 # of Years: 16 Second Hand Exposure: No Substance Use Type: methamphetamine Alcohol Intake: none Review of Systems Constitutional Constitutional: DENIES: chills, fever Eyes General: DENIES: erythema, exudate Lids/Accessories: DENIES: erythema, swelling Vision: DENIES: acuity, blurring ENMT Ears: DENIES: drainage, erythema Hearing: DENIES: hearing loss Balance: DENIES: ataxia, falling to one side Sinuses: DENIES: congestion, pain Nose: DENIES: nosebleeds, pain Mouth/Throat: DENIES: painful swallowing, sore throat Teeth: DENIES: pain Jaw: DENIES: pain Cardiovascular Cardiac: DENIES: chest pain, dyspnea on exertion Rhythm/Rate: DENIES: irregular beat, palpitations Vascular: DENIES: pedal edema, unilateral swelling Pulmonary Respiratory: DENIES: cough, dyspnea, pleuritic chest pain, sputum GI Upper Abdomen: nausea, pain, vomiting Lower Abdomen: diarrhea, DENIES: pain General: DENIES: dysuria, frequency Musculoskeletal General: DENIES: joint pain, tenderness Integumentary Skin: DENIES: itching, rash Neurological General: DENIES: change in strength, headache, numbness, weakness Psychiatric Psychiatric: DENIES: emotional instability, suicidal ideation/attempt Endocrine Endocrine: DENIES: polydipsia, polyphagia Hematologic/Lymphatic Hematologic/Lymphatic: DENIES: frequent nosebleeds, lymphadenopathy Allergic/Immunological Allergic/Immunoligical: DENIES: allergic reactions, hives Physical Exam General General Nourishment: well nourished, well developed, appears stated age, no acute distress, adult General Body Habitus: well groomed Vitals and Pain First Documented Vital Signs Date Time Temp Pulse Resp B/P Pulse Ox O2 Delivery O2 Flow Rate FiO2 01/06/17 01:38 97.3 99 20 144/78 99 Room Air Weight: Kilograms: 65.500 Height (feet): 5 Height (inches): 1.00 Triage Pain Scale: RN VS reviewed by Provider: Yes Normal Exams: Head: Normocephalic w/o trauma Eyes: Pupils are PERRLA w/ EOMI, No scleral icterus, irritation, or foreign bodies noted ENMT: No facial trauma, nasal exudates, pharyngeal erythema, or exudates are noted Dental: No fractured, loose, or missing teeth noted Neck: Full range of motion, without adenopathy, JVD, bruits or thyromegaly Chest/Resp: Clear all ellis, with good airflow, and symmetry bilaterally CV: Regular rate and rhythm, without murmur or gallop, Pulses 2+ all extremities, capillary refill, <2 seconds all ext., no pedal edema noted Abdomen: Bowel sounds positive, non-distended, no hepatosplenomegaly, masses or bruits noted Lymphatic: No lymphadenopathy, or lymphedema noted Musculoskeletal: No tenderness, or deformity noted, good range of motion, all extremities Integumentary: No rashes, hives, or bruising noted, hair and nails, without abnormality Neurologic: Patient is alert, and oriented, cranial nerves, motor/sensory/ cerebellar, exams w/o gross deficits, to observation Psychiatric: Patient exhibits, appropriate attention, emotion and affect Abdomen (brief) Comments ABD - Soft. Mild tender to palpation in the LUQ. No rebound or guarding. BSA x 4. No CVA tenderness. Non-distended. Differential Diagnoses Considering: Bowel Obstruction, IBS, Ileus, Pancreatitis, UTI Progress Results/Orders Orders Procedure Category Date Status Time Cbc W/Auto LAB 01/06/17 Complete Diff-Reflex Manual Cmp - Comprehensive LAB 01/06/17 Complete Metabolic Lipase LAB 01/06/17 Complete Ua, Dip Wreflex LAB 01/06/17 Complete Microsc & Osteopathic Physician 01:54 LAB 01/06/17 Complete Qualitative, Urine 01:54 EKG EKG 01/06/17 Logged Iv Lock (Ed Only) EDM 01/06/17 Transmitted 02:58 Normal Saline (Normal PHA 01/06/17 Complete Saline Iv) 03:00 Ondansetron Inj PHA 01/06/17 Complete (Zofran) 03:00 Fentanyl (Fentanyl) PHA 01/06/17 Complete 03:00 Ct Abd/Pelvis CT 01/06/17 Taken W/Contrast Only 03:04 Iohexol (Omnipaque) PHA 01/06/17 Complete 03:24 Normal Saline (Ns) PHA 01/06/17 Complete 03:24 Saline Flush (Iv PHA 01/06/17 Complete Flush) 03:24 Fentanyl (Fentanyl) PHA 01/06/17 Complete 04:15 Lab Results Laboratory Tests Test 01/06/17 02:19 01/06/17 02:39 White Blood Count 9.5T/MM3 Red Blood Count 4.65M/MM3 Hemoglobin 13.7GM/DL Hematocrit 39.9% Mean Corpuscular Volume 85.8UM3 Mean Corpuscular Hemoglobin 29.5UUG Mean Corpuscular Hemoglobin Concent 34.3GM/DL RDW Standard Deviation 37.5FL Platelet Count 221T/MM3 Mean Platelet Volume 9.8UM3 Immature Granulocyte % (Auto) 0.1% Neutrophils (%) (Auto) 51.8% Lymphocytes (%) (Auto) 35.4% Monocytes (%) (Auto) 10.3% Eosinophils (%) (Auto) 2.1% Basophils (%) (Auto) 0.3% Absolute Immature Granulocyte (auto 0.01T/MM3 Absolute Neutrophils (auto) 4.9T/MM3 Absolute Lymphocytes (auto) 3.4T/MM3 Absolute Monocytes (auto) 1.0T/MM3 Absolute Eosinophils (auto) 0.2T/MM3 Absolute Basophils (auto) 0.0T/MM3 Turbidity < 20 Sodium Level 141MEQ/L Potassium Level 4.0MEQ/L Chloride Level 108MEQ/L Carbon Dioxide Level 24MEQ/L Anion Gap 9MEQ/L Blood Urea Nitrogen 10.0MG/DL Creatinine 0.9MG/DL Glomerular Filtration Rate Calc 73 BUN/Creatinine Ratio 11RATIO Glucose Level 97MG/DL Calculated Osmolality 270MOSM/KG Calcium Level 9.4MG/DL Total Bilirubin 0.50MG/DL Icterus Index < 2 Aspartate Amino Transf (AST/SGOT) 14U/L Alanine Aminotransferase (ALT/SGPT) 44U/L Alkaline Phosphatase 82U/L Total Protein 6.9G/DL Albumin 4.0G/DL Globulin 2.9G/DL Albumin/Globulin Ratio 1.4RATIO Lipase 138U/L Chemistry Specimen Hemolysis < 15 Urine Collection Type Cleancatch-midstream Urine Color Yellow Urine Turbidity Clear Urine pH 6.0 Urine Specific [place] <=1.005 Urine Protein Negative Urine Glucose (UA) Negative Urine Ketones Negative Urine Blood Negative Urine Nitrite Negative Urine Bilirubin Negative Urine Urobilinogen 0.2EU/DL Urine Leukocyte Esterase Negative Urinalysis Comment Microscopic not ind. Urine Test Negative Medications Current ED Medications Sodium Chloride (Normal Saline IV) 1,000 ml @ 999 mls/hr Q1H1M ONCE IV Last administered on 01/06/17 03:28; Start 01/06/17 at 03:00; Stop 01/06/17 at 04:00; Status DC Ondansetron HCl (Zofran) 4 mg O ONCE IV Last administered on 01/06/17 03:28; Start 01/06/17 at 03:00; Stop 01/06/17 at 03:01; Status DC Fentanyl (Fentanyl) 50 mcg O ONCE IV Last administered on 01/06/17 03:30; Start 01/06/17 at 03:00; Stop 01/06/17 at 03:01; Status DC Iohexol 1 bottle 1 bottle STK-MED ONCE .ROUTE ; Start 01/06/17 at 03:24; Stop 01/06/17 at 03:25; Status DC Sodium Chloride (NS) 100 ml @ As Directed STK-MED ONCE .ROUTE ; Start 01/06/17 at 03:24; Stop 01/06/17 at 03:25; Status DC Sodium Chloride (Iv Flush) 10 ml STK-MED ONCE .ROUTE ; Start 01/06/17 at 03:24; Stop 01/06/17 at 03:25; Status DC Fentanyl (Fentanyl) 50 mcg O ONCE IV Last administered on 01/06/17 04:12; Start 01/06/17 at 04:15; Stop 01/06/17 at 04:16; Status DC Progress Progress Labs / imaging were discussed in detail with the patient and family and questions are answered. Patient is given IV hydration. Patient was given parental narcotic and antiemetic medications intravenously which improved her symptoms. Patient is discharged home in improved condition. Patient is to follow up as instructed. Patient is to return to the emergency Department if her condition worsens or changes in any manner. Patient is in agreement with the current plan of management. She is discharged home in improved condition. Prescriptions for Zofran and Alpine were provided. Patient's work up was negative in the ED. EKG EKG : Rate: 60-100 Rhythm: sinus [place]: normal QRS: normal Intervals: normal ST/T: non-specific changes Interpreted by: signing physician CT CT : CT: Abd/Pelvis IV contrast Interpretation: Normal, Faxed Report ELIZABETH RAZO 2, 2017 03:23
[2017-01-06] MEDS ORDERED: IOHEXOL 300 MG/ML 100ml INJECTION ONE (03:24)
[2017-01-06] MEDS ORDERED: SALINE FLUSH 10ml SYRINGE ONE (03:24)
[2017-01-06] MEDS ORDERED: NORMAL SALINE 100 ML ONE (03:24)
--- NOTE | 2017-01-06 03:32 | NUR ---
TO CT VIA CART
[2017-01-06] MEDS ORDERED: ONDA4TAB7 PO (04:15)
[2017-01-06] MEDS ORDERED: HYDR-4246 PO (04:15)
[2017-01-06 04:33] VITALS: BP 132/81; PULSE 93; RESP 20; TEMP 97.3; O2SAT 100
--- NOTE | 2017-01-06 04:33 | NUR ---
DEPART PT IS GIVEN DISMISSAL INSTRUCTIONS WITH VERBAL UNDERSTANDING. PT IS GIVEN SCRIPTS, X2. PT LEAVES AMBULATORY TO ED REGISTRATION DESK
--- NOTE | 2017-01-06 07:57 | DI ---
Indication: ITS.REASON: LUQ Pain PROCEDURE: CT ABD/PELVIS W/CONTRAST ONLY: Encounter: Initial Comparison: None Technique: Axial CT images were performed through the abdomen and pelvis after the administration of intravenous contrast. Coronal and sagittal two-dimensional reformats. Automated Exposure Control and Iterative Reconstruction dose reducing techniques were utilized. Contrast: Omnipaque 300 89 mL Findings: The lung bases are clear. The liver is normal. Gallbladder is surgically absent. The spleen, pancreas and adrenal glands are normal. Kidneys are normal. No abdominal or pelvic adenopathy. Bladder is normal. Uterus shows fluid in the endometrial canal. Prominent cysts or follicles in both ovaries. No evidence of a bowel obstruction. Some fluid-filled small bowel loops. Bone windows are within normal limits. Impression: No acute disease process seen. There is a preliminary report by [facility]. .
== END 2017-01-06 04:33 | disposition home or self-care (01) ==
LOC: ED 01:38
DX: K52.9 Noninfective gastroenteritis and colitis, unspecified (principal)
CPT/HCPCS: 36415; 74177; 80053; 81003; 81025; 83690; 85025; 93005; 96374; 96375; 96376; 99284; J2405; J3010; J7030; J7050; Q9967

== ENCOUNTER 2017-10-16 00:09 | Inpatient (IN) ==
[2017-10-16] MEDS ORDERED: ONDANSETRON 4 MG/2 ML INJECTION IVP ONE (00:15)
[2017-10-16] MEDS ORDERED: NS 1,000 ML IV ONE ×2 (00:15→09:11)
--- NOTE | 2017-10-16 00:26 | Emergency Department Report ---
Overdose HPI - General Stated Complaint: poss OD Time Seen by Provider: 10/16/17 00:15 Source: patient, EMS Mode of arrival: EMS Limitations: no limitations - History of Present Illness HPI Narrative: Although patient is not very forthcoming, she states that she took "a bunch" of her medications tonight to try to sleep. Apparently she called her mother who is caring for her children, and the mother became concerned when she heard that she had taken more medication than prescribed, and called EMS. On forced but and EMS arrived on the scene, found the patient somewhat lethargic, but with no complaints other than moderate headache that began after she took all of her medicines. She took unknown doses of the following medications: Hydroxyzine 50 mg Pantoprazole 40 mg Zyprexa 5 mg Bactrim DS Escitalopram 20 mg Venlafaxine 37.5 mg All medication bottle still have medication in them, and patient is unable to say whether she has been taking the medications routinely every day or not. According to [place] police, the patient had called her mother and told her that she was "going to overdose on all my meds to sleep all of this away." The mother became concerned, called 911 and tried to reach the patient's boyfriend to have her checked on. On scene the patient was alert and oriented, voiced that she had taken the medications in an effort to try to sleep, and again denied any suicidal or homicidal ideation. In July of last year patient was having depression with significant psychotic features, was admitted to [facility], and was stabilized. Patient denies any significant depression or psychotic features today. Patient's mother stated to both lung 47 as well as this examiner that the patient had sent her takes this at "ate some pills to home at () and the kids that I am sorry." She also states that the patient has indeed been hearing voices lately, and was seen at [place] today and had some of her medications changed. - Related Data Home Medications Medication Instructions Recorded Confirmed Ibuprofen 400 mg PO Q4H PRN 08/13/17 10/16/17 ALPRAZolam [Xanax] 1 tab PO PRN 10/16/17 10/16/17 ARIPiprazole [Abilify] 1 tab PO DAILY 10/16/17 10/16/17 Venlafaxine HCl [Venlafaxine HCl 1 tab PO DAILY 10/16/17 10/16/17 ER] hydrOXYzine HCl [Hydroxyzine HCl] 1 tab PO TID 10/16/17 10/16/17 Previous Rx's Medication Instructions Recorded Escitalopram [Lexapro] 1 tab PO WB #14 tab 08/13/17 Famotidine [Pepcid] 20 mg PO BID #28 tab 08/13/17 Pantoprazole Tab [Protonix Tab] 1 tab PO ACB #14 tab 08/13/17 Allergies Allergy/AdvReac Type Severity Reaction Status Date / Time tramadol Allergy Severe SEIZURE Verified 08/13/17 16:03 levofloxacin Allergy Intermediate RASH Verified 08/13/17 16:03 morphine AdvReac Mild GI Verified 08/13/17 16:03 DISCOMFORT Review of Systems All systems: reviewed and negative except as stated PFSH Patient Stated Medical History Migraine Yes Gastroesophageal Reflux Yes Disease Other GI Yes: Pancreatitis Depression Yes Substance Use Disorder Yes: 10/15/17 Now No Depression with psychotic features Surgical History: Surgical History. General: gallbladder. Reproductive/: c -section. Joint: knee - Social History Smoking status: Current every day smoker Substance use type: does not use Alcohol intake frequency: does not drink Physical Exam - Limitations Limitations: no limitations - General General appearance: alert, other (patient appears slightly lethargic or sleepy, but is alert and can answer questions.) - Normal Exams: Head:: Normocephalic without trauma Eyes:: Pupils are PERRLA w/ EOMI, No scleral icterus, irritation, or foreign bodies noted ENMT:: No facial trauma, nasal exudates, pharyngeal erythema, or exudates are noted Neck:: Full range of motion, without adenopathy, JVD, bruits or thyromegaly Chest/Respirations:: Clear all ellis, with good airflow, and symmetry bilaterally Cardiovascular:: Regular rate and rhythm, without murmur or gallop, Pulses 2+ all extremities, capillary refill, <2 seconds all extremities Abdomen:: Bowel sounds positive, soft, non-tender, non-distended, no hepatosplenomegaly, masses or bruits noted Lymphatic:: No lymphadenopathy, or lymphedema noted Musculoskeletal:: No tenderness, or deformity noted, good range of motion, all extremities Integumentary:: No rashes, hives, or bruising noted, hair and nails, without abnormality Neurological:: Patient is alert, and oriented, cranial nerves, motor/sensory/ cerebellar, exams w/o gross deficits, to observation Psychiatric:: Patient exhibits, appropriate attention, emotion and affect Course Vital Signs Temperature 98.9 F 10/16/17 00:11 Pulse Rate 90 10/16/17 00:11 Respiratory Rate 26 H 10/16/17 00:11 Blood Pressure 124/80 10/16/17 00:11 Pulse Oximetry 100 10/16/17 00:11 Temperature 98.9 F 10/16/17 00:11 Pulse Rate 91 10/16/17 00:23 Respiratory Rate 26 H 10/16/17 00:11 Blood Pressure 124/80 10/16/17 00:11 Pulse Oximetry 100 10/16/17 00:11 Overdose - MDM Narrative Medical decision making narrative: EKG shows normal sinus rhythm without ischemia, ectopy, or infarction CBC - N CMP - N Acetaminophen/salicylate's - N UDS - EtOH -N UA/P - N/N CT head - n - Lab Data Result diagrams: 10/16/17 00:47 10/16/17 00:47 Lab Results 10/16/17 10/16/17 10/16/17 Range/Units 00:47 00:47 00:47 WBC 8.5 (4.5-11.0) T/MM3 RBC 4.52 (4.00-5.20) M/MM3 Hgb 13.6 (12-16) GM/DL Hct 39.4 (36-46) % MCV 87.2 (80-100) UM3 MCH 30.1 (26-34) UUG MCHC 34.5 (31-37) GM/DL RDW Std Deviation 40.2 (36.9-50.2) FL Plt Count 181 (130-400) T/MM3 MPV 10.0 (9.4-12.4) UM3 Immature Gran % (Auto) 0.1 (0.0-0.5) % Neut % (Auto) 57.5 (33-66) % Lymph % (Auto) 29.1 (23-45) % Cherry % (Auto) 11.4 H (0-9.0) % Eos % (Auto) 1.8 (0-4) % Baso % (Auto) 0.1 (0-2) % Neut # (Auto) 4.9 (1.8-7.7) T/MM3 Lymph # (Auto) 2.5 (1-4.8) T/MM3 Cherry # (Auto) 1.0 H (0-0.8) T/MM3 Eos # (Auto) 0.2 (0-0.5) T/MM3 Baso # (Auto) 0.0 (0-0.2) T/MM3 Abs Immat Gran (auto) 0.01 (0.00-0.03) T/MM3 Turbidity < 20 (0-20) Sodium 141 (134-144) MEQ/L Potassium 3.8 (3.6-5) MEQ/L Chloride 105 (98-107) MEQ/L Carbon Dioxide 24 (22-30) MEQ/L Anion Gap 12 (5-15) MEQ/L BUN 12.0 (7-17) MG/DL Creatinine 1.1 (0.7-1.2) MG/DL GFR Calculation 57 BUN/Creatinine Ratio 11 (6-26) RATIO Glucose 105 (65-110) MG/DL Calculated Osmolality 271 (261-280) MOSM/KG Calcium 9.4 (8.4-10.2) MG/DL Total Bilirubin < 0.10 L (0.20-1.30) MG/DL Icterus Index < 2 (0-7) AST 11 L (14-36) U/L ALT 19 (9-52) U/L Alkaline Phosphatase 66 (38-126) U/L Total Protein 7.1 (6.3-8.2) G/DL Albumin 4.0 (3.5-5.0) G/DL Globulin 3.1 (2.4-3.6) G/DL Albumin/Globulin Ratio 1.3 (1.1-2.2) RATIO Serum , Qual Negative (Negative) Specimen Hemolysis < 15 (0-25) Salicylates < 1.0 L (2-20) MG/DL Acetaminophen < 10 L (10-30) UG/ML Alcohol, Quantitative <10 (<10) MG/DL Disposition Clinical Impression: Polysubstance overdose Qualifiers: Encounter type: initial encounter Injury intent: undetermined intent Qualified Code(s): T50.904A - Poisoning by unspecified drugs, medicaments and biological substances, undetermined, initial encounter [place] [facility] [place] Stable Prescriptions: No Action Ibuprofen 400 mg PO Q4H PRN PRN Reason: Pain Famotidine [Pepcid] 20 mg PO BID #28 tab Pantoprazole Tab [Protonix Tab] 1 tab PO ACB #14 tab Venlafaxine HCl [Venlafaxine HCl ER] 1 tab PO DAILY hydrOXYzine HCl [Hydroxyzine HCl] 1 tab PO TID Escitalopram [Lexapro] 1 tab PO WB #14 tab ARIPiprazole [Abilify] 1 tab PO DAILY ALPRAZolam [Xanax] 1 tab PO PRN Referrals: Carlos Bernabe MD [Primary Care Provider] - - Seen By: physician
[2017-10-16] MEDS ORDERED: ONDANSETRON 4 MG/2 ML INJECTION IVP PRN (02:12)
[2017-10-16] MEDS ORDERED: METOCLOPRAMIDE 10mg/2ml INJECTION IVP PRN (02:12)
[2017-10-16] MEDS ORDERED: SENNA + DOCUSATE TABLET PO PRN (02:12)
[2017-10-16] MEDS: D5-1/2NS 1,000 ML IV SCH ×2 (02:35→16:16)
[2017-10-16 02:39] VITALS: BMI 28.3
--- NOTE | 2017-10-16 02:55 | History & Physical Report ---
History of Present Illness Date: 10/16/17 Chief complaint: polysubstance overdose HPI: The pt was examined in the room by me and the pt refused to answer any of my questions, she only said she had a headache, across the front. According to the ER physician, she took several handfulls of her prescription pills in attempt to kill herself. She texted her mother her intentions, and told her to say goodbye to her children for her. Presently she denies any symptom, no change in vision, N/V/diarrhea, chest pain, SOB, cough, hallucinations either auditory or visual. Review of Systems All systems PM: 10-point ROS was reviewed, no additional remarkable complaints except - Psychiatric Psychiatric: Present: depression, suicidal ideation. Absent: auditory hallucinations, behavioral changes, hallucinations, homicidal ideation Past Medical History bipolar disorder, major depressive disorder Surgical History: Surgical History. General: gallbladder. Reproductive/: c -section. Joint: knee Family History Updates: none - Social History Smoking status: Current every day smoker Substance use type: amphetamines, other (admits to taking meth just yesterday) Alcohol intake frequency: 3 or more drinks per day Last drink: just MANAGER [place] Housing: apartment Household members: children Medications Home Medications Medication Instructions Recorded Confirmed Type Ibuprofen 400 mg PO Q4H PRN 08/13/17 10/16/17 History ALPRAZolam [Xanax] 1 tab PO PRN 10/16/17 10/16/17 History ARIPiprazole [Abilify] 1 tab PO DAILY 10/16/17 10/16/17 History Venlafaxine HCl [Venlafaxine HCl 1 tab PO DAILY 10/16/17 10/16/17 History ER] hydrOXYzine HCl [Hydroxyzine HCl] 1 tab PO TID 10/16/17 10/16/17 History Allergies Allergy/AdvReac Type Severity Reaction Status Date / Time tramadol Allergy Severe SEIZURE Verified 10/16/17 01:56 levofloxacin Allergy Intermediate RASH Verified 10/16/17 01:56 morphine AdvReac Mild GI Verified 10/16/17 01:56 DISCOMFORT Exam Vital Signs: Temperature 98.9 F 10/16/17 00:11 Pulse Rate 86 10/16/17 02:00 Respiratory Rate 20 10/16/17 02:00 Blood Pressure 94/52 10/16/17 02:00 Pulse Oximetry 98 10/16/17 02:00 Height/Weight/BMI: Height 1.55 m Weight 67.9 kg Body Mass Index 28.3 - Constitutional Present: no acute distress - Routine Neck Exam Present: supple - Routine Respiratory Exam Present: CTA bilaterally - Routine Cardiovascular Exam Present: RRR, no murmur - Routine Abdominal Exam Present: soft, non tender - Routine Extremities Exam Present: no edema, full ROM Results - Labs CBC & Chem 7: 10/16/17 00:47 10/16/17 00:47 Assessment and Plan (1) Polysubstance overdose Current visit: Yes Status: Acute Assessment and Plan: Suicide precautions, monitoring on telemetry, recheck labs, SW or psych evaluation in am. - Physician Narrative Narrative: Date: 10/16/17 Time: 0252 Hospital Course Summary Disclaimer: The visit summary below is not to be considered part of the above Progress Note.
--- NOTE | 2017-10-16 07:44 | CT Scan Report ---
Indication: severe headache after medication overdose PROCEDURE: CT head/brain wo con: Encounter: Initial Comparison: July 10, 2017 Technique: Axial CT images through the head were performed without contrast. Iterative Reconstruction dose reducing technique was utilized. FINDINGS: The ventricles are of normal size, shape, and configuration for the patient's age. There is no evidence of acute intracranial hemorrhage, midline displacement, or mass effect. The CT attenuation of the brain parenchyma is normal within the cerebellum, brain stem, and cerebral hemispheres. The tympanic cavities and mastoid air cells are free of appreciable disease. There are no definite fractures of the skull base, calvarium, or visualized portion of the midface. IMPRESSION: No CT evidence of acute intracranial abnormality. There is a preliminary report by [employer]. .
[2017-10-16 16:15] VITALS: TEMP 98.8
--- NOTE | 2017-10-16 19:15 | Discharge Summary ---
Discharge Information Date of admission: 10/16/17 02:12 Anticipated date of discharge: 10/16/17 Attending Physician: Jesus Piedra MD Primary care physician: Carlos Bernabe MD Consults: Deny Ferrera for State Screen - Discharge Diagnosis (1) Polysubstance overdose Status: Acute Discharge diagnosis Polysubstance overdose - unknown quantity or unknown medication. Associated conditions and complications Suicide attempt Encephalopathy/somnolence secondary to medication ingestion - resolved Hypotension secondary to sedative medications - resolved Polysubstance use Tobacco dependency Bipolar/MDD - Laboratory Labs: Admit Lab 10/16/17 00:47 WBC 8.5 Hgb 13.6 Hct 39.4 MCV 87.2 Plt Count 181 Neut % (Auto) 57.5 Lymph % (Auto) 29.1 Jack % (Auto) 11.4 H Eos % (Auto) 1.8 Baso % (Auto) 0.1 Admit Lab 10/16/17 10/16/17 00:47 00:47 Sodium 141 Potassium 3.8 Chloride 105 Carbon Dioxide 24 Anion Gap 12 BUN 12.0 Creatinine 1.1 GFR Calculation 57 BUN/Creatinine Ratio 11 Glucose 105 Calculated Osmolality 271 Calcium 9.4 Total Bilirubin < 0.10 L AST 11 L ALT 19 Alkaline Phosphatase 66 Total Protein 7.1 Albumin 4.0 Globulin 3.1 Albumin/Globulin Ratio 1.3 Serum , Qual Negative TSH 10/16/17 00:47 TSH 3.14 D Urine Drugs of Abuse 10/16/17 03:04 Ur Amphetamines Screen Positive U Methamphetamines Scrn Positive 10/16/17 04:55 10/16/17 04:55 - Microbiology Microbiology 10/16/17 03:04 Urine, Voided (Cc/notcc) Urine Culture - Preliminary Culture Initiated - Results Pending - Radiology Radiology: Date of Exam: 10/16/17 PROCEDURE: CT head/brain wo con FINDINGS: The ventricles are of normal size, shape, and configuration for the patient's age. There is no evidence of acute intracranial hemorrhage, midline displacement, or mass effect. The CT attenuation of the brain parenchyma is normal within the cerebellum, brain stem, and cerebral hemispheres. The tympanic cavities and mastoid air cells are free of appreciable disease. There are no definite fractures of the skull base, calvarium, or visualized portion of the midface. IMPRESSION: No CT evidence of acute intracranial abnormality. History of Present Illness HPI: The pt was examined in the room by me and the pt refused to answer any of my questions, she only said she had a headache, across the front. According to the ER physician, she took several handfuls of her prescription pills in attempt to kill herself. She texted her mother her intentions, and told her to say goodbye to her children for her. Presently she denies any symptom, no change in vision, N/V/diarrhea, chest pain, SOB, cough, hallucinations either auditory or visual. For complete details of the H&P refer to that document. Objective Vital signs: Temperature 98.8 F 10/16/17 16:00 Pulse Rate 70 10/16/17 16:00 Respiratory Rate 23 10/16/17 16:00 Blood Pressure 106/58 10/16/17 16:00 Pulse Oximetry 97 10/16/17 16:00 Height/Weight/BMI: Height 1.55 m Weight 67.9 kg Body Mass Index 28.3 Hospital Course This is a general summary of the patient's hospital course. For more details refer to the complete medical record. Hospital course: 10/16/17 OBS to [facility] [facility] for close care and monitoring. Suicidal precautions. IVF for hydration. TELE monitoring. Zofran prn nausea. SCD for DVT prevention. PV for state screen when patient awake and alert. Hold chronic medications as uncertain which medications she overdosed on. Mentation improved. PV evaluated patient and recommending inpatient psychiatric treatment. Court Hold placed. HP and HR doing well. Patient able to take oral. Respiratory status stable- breathing well on RA. Arrangements made for care at [facility] - case discussed with Dr Hathaway Will discharge to [facility] in stable condition. See orders for details. Time spent with patient: discharge greater than 30 minutes Resuscitation Status: Full Code Discharge Plan - Discharge Disposition Discharge Date: 10/16/17 Disposition: 65 To Psych Hosp/Unit *Condition: Stable Reason For Visit (Visit label in EMR): polysubstance overdose - Discharge Medications *Discharge Medications: Continue Ibuprofen 400 mg PO Q4H PRN PRN Reason: Pain Famotidine [Pepcid] 20 mg PO BID #28 tab Pantoprazole Tab [Protonix Tab] 1 tab PO ACB #14 tab Venlafaxine HCl [Venlafaxine HCl ER] 1 tab PO DAILY hydrOXYzine HCl [Hydroxyzine HCl] 1 tab PO TID Escitalopram [Lexapro] 1 tab PO WB #14 tab ARIPiprazole [Abilify] 1 tab PO DAILY ALPRAZolam [Xanax] 1 tab PO PRN - Discharge Packet/Instructions *Diet: Regular *Activity: As tolerated *Pain Management/Treatment: Tylenol okay for pain *Wound Care: N/A *Expected Signs/Symptoms: Improvement in your metal health with treatments provided in psychiatric hospiatal. *Notify Physician if: Temp >100.4. N/V. *During Business Hours Contact: Nursing staff at [facility] *After Business Hours Contact: Nursing staff at [facility] *Pending Lab/Results: No Pending Lab - Referrals/Follow Up *Referrals/Follow Up: Carlos Bernabe MD [Primary Care Provider] - (F/U wit Dr Bernabe for PCP care 1 week post discharge from psychiatric hospital. ) - Patient Handouts Patient Handouts: Methamphetamine Abuse (DC) - Dismissal Complete Discharge Instructions are:: Complete Physician Narrative - Narrative Physician: Jesus Piedra MD Attestation Narrative: Date: 10/16/17 Time: 1911 I have independently interviewed and examined patient prior to discharge. See H& P from earlier today for details. Medically stable for discharge to inpatient psychiatric care.
[2017-10-16 20:08] VITALS: BP 111/73; PULSE 66; RESP 18; O2SAT 96
== END 2017-10-16 20:22 | DRG 917 ==
LOC: ED 00:09 → CCU 00:09
PROVIDERS: ADMIT Internal Medicine; ATTEND Hospitalist